=== PATIENT | male | born 1940 | race Caucasian/White ===

== ENCOUNTER 2016-05-03 06:40 | Inpatient (IN) ==
[2016-04-29 16:29] LABS: Basophils # (Auto) 0 K/mcL (0.0-0.3); Basophils % (Auto) 0.3 % (0.0-2.0); Eosinophils # (Auto) 0.2 K/mcL (0.0-0.7); Eosinophils % (Auto) 2.9 % (0.0-7.0); Granulocytes % (Auto) 70.1 % (38.0-78.0); Lymphocytes # (Auto) 1.5 K/mcL (1.5-4.8); Lymphocytes % (Auto) 18.3 % (15.5-49.0); Mean Cell Volume 90.2 fL (80.0-100.0); Mean Corpuscular HGB Conc 32.1 g/dL (31.0-36.0); Mean Corpuscular Hemoglobin 28.9 pg (26.0-34.0); Monocytes # (Auto) 0.7 K/mcL (0.1-0.9); Monocytes % (Auto) 8.4 % (1.0-9.0); Platelet Count 386 K/mcL (140-440); RBC 5.43 M/mcL (4.50-5.90); Red Cell Distribution Width 14.5 % (11.5-14.5)
[2016-04-29 16:32] LABS: Blood Urea Nitrogen 23 mg/dl (8-23)
[2016-04-29 16:33] LABS: Appearance,Urine HAZY; Bacteria,Urine FEW /hpf (0); Bilirubin,Urine NEG (NEG); Color,Urine YELLOW; Glucose,Urine (UA) NEGATIVE (NEG); Leukocyte Esterase,Urine 250 /uL (NEG); Mucus,Urine FEW /hpf (0); Nitrate,Urine POS (NEG); Protein,Urine NEG (NEG); Specific Gravity,Urine 1.019 (1.000-1.035); Urine Blood 0.03 mg/dL (<0.03); Urine RBC 2 /hpf (0-1); Urine Squamous Epithelial Cell 1 /hpf (0-4); Urine Transitional Epi Cells < 1 /hpf (0-2); Urine WBC 19 /hpf (0-4); Urobilinogen,Urine NEG (NEG)
[~2016-05-03 06:40] MED LIST: PREGABALIN 150 MG CAPSULE PO SCH; ceFAZolin 1 GM VIAL IV SCH; oxyCODONE 10 MG TAB.ER.12H PO SCH
[2016-05-03] MEDS ORDERED: TRANEXAMIC ACID 1,000 MG/10 ML VIAL IV ONE ×2 (09:30→10:39)
[2016-05-03] MEDS ORDERED: DEXAMETHASONE 10 MG/ML VIAL IV ONE (09:30)
[2016-05-03] MEDS ORDERED: PROPOFOL 200 MG/20 ML VIAL IV ONE (09:30)
[2016-05-03] MEDS ORDERED: MIDAZOLAM 5 MG/5 ML VIAL IV ONE (09:30)
[2016-05-03] MEDS ORDERED: PHENYLEPHRINE 10 MG/ML VIAL IV ONE (09:30)
[2016-05-03] MEDS ORDERED: ONDANSETRON 4 MG/2 ML VIAL IV ONE (09:30)
[2016-05-03] MEDS ORDERED: LIDOCAINE HCL/PF 100 MG/5 ML SYRINGE IV ONE (09:30)
[2016-05-03] MEDS ORDERED: SUCCINYLCHOLINE 20 MG/ML ML IV ONE (09:30)
[2016-05-03] MEDS ORDERED: ePHEDrine 50 MG/ML AMPUL IV ONE (09:30)
[2016-05-03] MEDS ORDERED: GENTAMICIN SULFATE 800 MG/20 ML VIAL IR ONE (10:32)
[2016-05-03] MEDS ORDERED: TEMAZEPAM 15 MG CAPSULE PO PRN (10:39)
[2016-05-03] MEDS ORDERED: FLEETS ADULT ENEMA PR PRN (10:39)
[2016-05-03] MEDS ORDERED: ONDANSETRON 4 MG/2 ML VIAL IV PRN ×2 (10:39→10:50)
[2016-05-03] MEDS ORDERED: ACETAMINOPHEN 325 MG TABLET PO PRN (10:39)
[2016-05-03] MEDS ORDERED: KETOROLAC 15 MG/ML VIAL IV PRN (10:39)
[2016-05-03] MEDS ORDERED: HYDROmorphone 2 MG/ML SYRINGE IV PRN (10:39)
[2016-05-03] MEDS ORDERED: BENZOCAINE/MENTHOL 1 LOZENGE PO PRN ×2 (10:39→10:50)
[2016-05-03] MEDS ORDERED: BISACODYL 10 MG SUPP.RECT PR PRN (10:39)
[2016-05-03] MEDS ORDERED: MAGNESIUM HYDROXIDE 30 ML ORAL.SUSP PO PRN (10:39)
[2016-05-03] MEDS ORDERED: POLYETHYLENE GLYCOL 3350 17 GM PACKET PO PRN (10:39)
--- NOTE | 2016-05-03 10:39 | Brief Operative Note ---
Date of procedure: 05/03/16 Pre-op diagnosis: Right hip djd Post-op diagnosis: same Procedure: Right GAIL Grafts/Implants: Yes Anesthesia: GETA Complications: none Complications Description: 05/03/16 10:38 none Surgeon: Dale Baumann Environmental Compliance Specialist: Reddy Knott Estimated blood loss (cc): 50 Specimens Removed/Pathology: none sent Condition: stable Disposition: PACU
[2016-05-03] MEDS ORDERED: LEUPROLIDE 22.5 MG IM SCH (10:45)
[2016-05-03] MEDS ORDERED: MEPERIDINE 25 MG/ML SYRINGE IV PRN (10:50)
[2016-05-03] MEDS ORDERED: IPRATROPIUM/ALBUTEROL 3 ML AMPUL.NEB NEB PRN (10:50)
[2016-05-03] MEDS ORDERED: ePHEDrine 50 MG/ML AMPUL IV PRN (10:50)
[2016-05-03] MEDS ORDERED: METOCLOPRAMIDE 10 MG/2 ML VIAL IV PRN (10:50)
[2016-05-03] MEDS ORDERED: NALOXONE HCL 0.4 MG/ML VIAL IV PRN (10:50)
[2016-05-03] MEDS ORDERED: PROMETHAZINE 25 MG/ML VIAL IV PRN (10:50)
[2016-05-03] MEDS ORDERED: diphenhydrAMINE 50 MG/ML VIAL IV PRN (10:50)
[2016-05-03] MEDS ORDERED: FLUMAZENIL 0.1 MG/ML ML IV PRN (10:50)
[2016-05-03] MEDS ORDERED: LACTATED RINGERS 250 ML IV PRN (10:50)
[2016-05-03] MEDS ORDERED: METHOCARBAMOL 1,000 MG/10 ML VIAL IV PRN (10:50)
[2016-05-03] MEDS ORDERED: LACTATED RINGERS 1,000 ML IV SCH (11:00)
--- NOTE | 2016-05-03 11:38 | Operative Note ---
DATE OF OPERATION: 05/03/2016 PREOPERATIVE DIAGNOSIS: Right hip degenerative arthritis, severe. POSTOPERATIVE DIAGNOSIS: Right hip degenerative arthritis, severe. PROCEDURE: Right total hip arthroplasty. SURGEON: Dale Baumann MD. CLINICAL VETERINARIAN: Reddy Knott PA-C. ANESTHESIA: General LMA anesthesia. COMPLICATIONS: None. IMPLANTS: A size 4 femoral noncemented stem with a size 54 cup with a dual mobility liner, neutral neck length and head ceramic. ESTIMATED BLOOD LOSS: Minimal. DESCRIPTION OF PROCEDURE: The patient was brought to the operating room and put to sleep with general LMA anesthesia. Once asleep, the patient had the right hip sterilely prepped and draped in the usual sterile fashion and placed on the operating table in the left lateral position. Ioban was placed over the skin, and we confirmed the operative site. Tranexamic acid and preop antibiotics had been given. Once this was confirmed, we then made the incision superior posteriorly, dissected down through the muscle layer, identified the posterior capsule and released the posterior capsule superior posteriorly. Once this was done, we tagged both the capsule and the piriformis which was retracted and we then dislocated the hip. We cut the neck length at 32 mm from the center of hip rotation. Once complete, we then removed the ball and reamed the acetabulum up to the size of a 53 cup. With good bleeding bone we then curetted any cyst and then placed a noncemented [place] cup which was put into place at 40 degrees of inclination and 20 degrees of anteversion. Once put into place, we placed a dual mobility liner. Once this was done, we then removed any osteophytes around the hip itself. We irrigated thoroughly. We then had the hip broached up for the size 4 stem. We trialed the size 4 stem with a neutral neck length. This seemed to be very stable, leg length about 1/4-inch longer as measured on the table. We irrigated posteriorly and implanted a size 4 stem, neutral ceramic neck and a dual mobility ball. This was reduced. Hip was stable up to 90 degrees of internal rotation. There was no complication. The patient tolerated this well. Sterile bandage was applied. We repaired the posterior capsule with #2 Ethibond, repaired the fascial layer with #1 Vicryl, and closed the skin with 2-0 Vicryl and mati superficially. The patient tolerated this well. RBMirta:amalia Garcia: 05/03/2016 10:46:38 Job ID: [id number] Doc ID: [id number] Dale Baumann MD
--- NOTE | 2016-05-03 11:49 | XRay Report ---
HISTORY: Reason for Exam:Post-op Total Hip FINDINGS: There is a well-positioned right total hip prosthesis. There is no fracture. There is sclerosis throughout most of the the right iliac bone as well as the right pubic bone. This is due to biopsy-proven metastatic prostate cancer. No pathologic fracture Is present. The right hemipelvis has become more sclerotic since the prior x-ray done on 02/09/16. There is severe osteoarthritis in the left hip. There are contour deformities in the weightbearing portion of the femoral head and acetabulum. This is unchanged. IMPRESSION: Well-positioned right hip prosthesis Interpreted and Authenticated by: London Benitez 05/03/16
[2016-05-03] MEDS: 0.9 % SODIUM CHLORIDE 10 ML SYRINGE IV SCH ×2 (12:15→22:05)
[2016-05-03] MEDS: LACTATED RINGERS 1,000 ML IV SCH ×2 (12:20→22:05)
[2016-05-03] MEDS: HYDROcodone/APAP 10/325MG TABLET PO PRN (15:04)
[2016-05-03] MEDS: WARFARIN 5 MG TABLET PO SCH (16:16)
[2016-05-03] MEDS: ceFAZolin 1 GM VIAL IV SCH (17:22)
[2016-05-03] MEDS ORDERED: SENNOSIDES 1 TABLET PO SCH (21:00)
[2016-05-03] MEDS ORDERED: ASPIRIN 325 MG ENTERIC COATED TABLET PO SCH (21:00)
[2016-05-03] MEDS: DOCUSATE SODIUM 100 MG CAPSULE PO SCH (21:07)
[2016-05-04] MEDS: ceFAZolin 1 GM VIAL IV SCH (00:16)
[2016-05-04] MEDS: HYDROcodone/APAP 10/325MG TABLET PO PRN (05:34)
[2016-05-04] MEDS: 0.9 % SODIUM CHLORIDE 10 ML SYRINGE IV SCH ×2 (05:35→13:59)
[2016-05-04] MEDS: LACTATED RINGERS 1,000 ML IV SCH (06:46)
--- NOTE | 2016-05-04 07:42 | Orthopedic Progress Note ---
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 Chief Complaint: [Pt is stable this morning on post operative day 1 without any significant concerns or complaints. Patients vital signs have remained stable. Patients dressing is dry and exhibits a grossly intact neurovascular and neuromotor exam. Patients 10 point ROS is otherwise negative. ] Objective Vital signs: Vital Signs Temp Pulse Resp BP BP Pulse Ox 05/04/16 06:52 78 18 96 05/04/16 03:29 98.2 F 78 20 122/69 96 05/04/16 00:00 97.6 F 75 20 112/66 96 05/03/16 20:00 93 05/03/16 19:22 97.9 F 72 20 124/70 94 05/03/16 18:00 71 95 05/03/16 16:36 97.7 F 71 16 133/79 133/79 95 05/03/16 16:00 95 05/03/16 14:27 69 123/77 91 05/03/16 14:12 66 131/76 94 05/03/16 14:00 96 05/03/16 13:57 66 119/73 95 05/03/16 13:42 60 119/74 95 05/03/16 13:27 64 121/74 91 05/03/16 13:12 70 119/75 93 05/03/16 12:59 69 116/67 95 05/03/16 12:44 66 112/69 94 05/03/16 12:39 95 05/03/16 12:27 64 122/71 93 05/03/16 12:12 66 124/77 97 05/03/16 12:00 96.7 F L 16 117/73 95 05/03/16 11:51 98.0 F 68 18 103/62 98 05/03/16 11:41 69 15 108/65 91 05/03/16 11:30 69 17 106/61 98 05/03/16 11:15 69 17 101/58 97 05/03/16 11:01 98.3 F 71 12 103/60 99 05/03/16 10:39 68 05/03/16 07:50 97.7 F 83 16 159/84 97 Intake and Output 05/03/16 05/04/16 05/04/16 21:59 05:59 13:59 Intake Total 650 / 650 500 / 500 1000 / 1000 Output Total 950 / 950 Balance 650 / 650 -450 / -450 1000 / 1000 Intake: IV 1000 / 1000 Lactated Ringers 1,000 ml 1000 / 1000 @ 100 mls/hr IV .Q10H BLAYNE Rx#:[id number] Oral 650 / 650 500 / 500 Output: Urine Catheter Amount 950 / 950 Other: Meal Lunch Percent of Meal Consumed 100% Weight 182 lb 8 oz Intake & Output: Intake & Output 05/03/16 05/04/16 05/04/16 21:59 05:59 13:59 Intake Total 650 / 650 500 / 500 1000 / 1000 Output Total 950 / 950 Balance 650 / 650 -450 / -450 1000 / 1000 Weight 182 lb 8 oz Intake: IV 1000 / 1000 Lactated Ringers 1,000 ml 1000 / 1000 @ 100 mls/hr IV .Q10H BLAYNE Rx#:[id number] Oral 650 / 650 500 / 500 Output: Urine Catheter Amount 950 / 950 Other: Meal Lunch Percent of Meal Consumed 100% Incision: Yes healing Dressing: Yes clean, Yes dry Weight bearing status: full Neurological exam IM: Yes motor sensory intact, Yes neurovascular intact Extremities exam IM: Yes Foot pink and warm, Yes neurovascular intact - Labs CBC & BMP: 05/04/16 05:00 04/29/16 13:46 Labs: Orthopedic Labs 05/04/16 04/29/16 05:00 13:46 PT 14.5 13.2 INR 1.1 1.0 APTT 34 05/04/16 04/29/16 05:00 13:46 Hgb 15.7 Hct 36.9 L 49.0 Assessment and Plan (1) Hx of total hip arthroplasty Patient has been educated regarding wound care and dressings, follow up recommendations, and medication use. We will f/u with the patient within 2-3 weeks for wound check. Status: Acute
--- NOTE | 2016-05-04 07:45 | Discharge Summary ---
Ortho Discharge - GAIL - Patient Instructions Diet: Regular Diet Activity: activity as tolerated, weight bearing as tolerated Total Hip Protocol: Follow activity instructions as provided by Physical Therapy. Dressing Care: May shower in 2 days - Problem Maintenance (1) Hx of total hip arthroplasty Status: Acute - Follow Up Plan Disposition: Home, Self-Care Prognosis: Good Rehab Potential: Good I certify that the patient requires SNF services: No Overall status at discharge: patient is progressing back to baseline - Orders For Discharge Prescriptions: Docusate Sodium [Colace] 100 mg PO BID #60 capsule HYDROcodone/APAP 10/325MG [[place] 10/325Mg] 1 - 2 tab PO Q4HP PRN #75 tablet PRN Reason: Pain
[2016-05-04] MEDS ORDERED: FERROUS SULFATE 325 MG TABLET PO SCH (08:00)
[2016-05-04] MEDS: DOCUSATE SODIUM 100 MG CAPSULE PO SCH (08:02)
[2016-05-04] MEDS: WARFARIN 5 MG TABLET PO SCH (13:59)
== END 2016-05-04 14:35 | disposition home or self-care (01) | DRG 470 ==
LOC: MEDSUR 06:40
PROVIDERS: ADMIT Orthopaedic Surgery; ATTEND Orthopaedic Surgery

== ENCOUNTER 2018-01-23 09:33 | Inpatient (IN) ==
--- NOTE | 2018-01-23 10:00 | Emergency Department Note ---
Weakness HPI - General Chief complaint: Weakness Stated complaint: Weakness x2 days Time Seen by Provider: 01/23/18 09:58 Source: patient Mode of arrival: ambulatory Limitations: no limitations - History of Present Illness HPI Narrative: This pleasant 77-year-old male lives in his own home alone and neighbors checking on him regularly today finding him even worse weeks and he has been and called an ambulance to transport him here to the emergency room. He is on a fairly harsh chemo regimen for metastatic prostate cancer and had received his last treatment last week. He has had similar weakness after chemo but this 1 is worse. He is generally not felt well the last couple of weeks and is felt more lightheaded. He has had poor appetite with nausea and vomiting and abdominal pain but this is per family and neighbor history. Patient actually denies these. No diarrhea has been noted bees not been eating. Family reports that 8 days ago he drank water from [place] in the family. This well has notoriously been contaminated with the findings of rats, etc. He became somewhat ill that evening and the next day became ill and is not felt well also these last 6 days. In route here via EMS he had even low temperature. He was placed on some oxygen. Family and neighbors have noted that he has had some change in his speech where it seems to be slower and his voice weaker as if he had full teeth. This was worse 3 days ago but was some better yesterday. He normally is very active and upbeat and able to interact appropriately and well. He has had a recent worsening of depression type of symptoms related to a girlfriend that moved out and someone else. Family reports that he has had some constant urinary urgency and incontinence which is new. There is a question about his medication compliance as well. REVIEW OF SYSTEMS: No fevers. Some chills 4 days ago. No sweats. Denies chest pain and palpitations. Family knows of no history of atrial fibrillation or neighbors but it is in his chart. Denies shortness of breath. Denies abdominal pain, nausea, vomiting, diarrhea but see above in HPI that family corrects this. Some constant urinary type of symptoms with the sense of urgency but incontinent which is new. He has a history of self-catheterization for years. He has a history of a blockage including with a nephrostomy tube due to his cancer. His cancer in the prostate was metastatic to bladder and kidney as well as musculoskeletal areas. No anxiety but the depression is mentioned as above. - Related Data Home Medications Medication Instructions Recorded Confirmed aspirin 81 mg chewable tablet 81 mg PO QDAY 09/28/16 01/17/18 leuprolide 22.5 mg (3 month) 22.5 mg SUB-Q ONCE 01/12/17 01/17/18 subcutaneous syringe calcium carbonate 600 mg calcium 600 mg PO QDAY tab 07/13/17 01/17/18 (1,500 mg) tablet Previous Rx's Medication Instructions Recorded amlodipine 5 mg tablet 5 mg PO QDAY #30 tab 10/06/17 blood pressure monitor kit See Dose Instructions .ROUTE 10/06/17 .MEDSUPPLY #1 each ciprofloxacin 500 mg tablet 500 mg PO BID #14 tab 12/08/17 clopidogrel 75 mg tablet 75 mg PO QDAY #90 tab 12/27/17 ezetimibe 10 mg tablet 10 mg PO QDAY #90 tab 12/30/17 oxybutynin chloride ER 10 mg 10 mg PO QDAY #30 tab 01/17/18 tablet,extended release 24 hr Allergies Allergy/AdvReac Type Severity Reaction Status Date / Time GWENDOLYN Inhibitors Allergy Severe Other Verified 01/17/18 10:56 Beta-Blockers Allergy Severe Other Verified 01/17/18 10:56 (Beta-Adrenergic Bloc Tetracyclines AdvReac Mild Photosensit Verified 01/17/18 10:56 ivity Past Medical History - Past Medical History [facility] Narrative: All Active Problems (Last Reviewed 01/17/18 @ 10:57 by Ernestine Gusman RN) Stroke (Chronic) Premature atrial complex (Acute) Adverse drug reaction (Acute) Palpitations (Acute) Palpitations (Acute) Hx of total hip arthroplasty (Acute) Chest pain (Acute) Palpitations (Acute) Atrial fibrillation (Acute) Costalchondritis (Acute) Non-cardiac chest pain (Acute) CAD (coronary artery disease) (Chronic) Vertebral compression fracture (Chronic) Osteoporosis (Chronic) Avascular necrosis of bone of right hip (Chronic) Osteoarthritis of left hip (Chronic) Status post right hip replacement (Acute) Fracture of ankle, closed (Acute) History of appendectomy (Acute) BPH with obstruction/lower urinary tract symptoms (Acute) Hypertension, essential (Acute) Incomplete bladder emptying (Acute) Nausea (Acute) Urinary hesitancy (Acute) Urinary obstruction (Acute) Prostate cancer metastatic to intraabdominal lymph node (Acute) Acute UTI (Acute) Nephrostomy status (Acute) Nephrostomy tube was 4 years ago and no longer has this. Right hand chronic tremor. Statin intolerance. Chronic anticoagulation on clopidogrel. Past Surgical History (Last Reviewed 01/17/18 @ 10:57 by Ernestine Gusman RN) Hx of total hip arthroplasty (Acute) History of appendectomy (Acute) Nephrostomy status (Acute) Family History (Last Reviewed 01/17/18 @ 10:57 by Ernestine Gusman RN) Mother Rheumatoid arthritis Father Heart attack Prostate cancer Brother Stroke Medical history: Reports: atrial fibrillation, hypertension, myocardial infarction, other (prostate cancer. 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 Right hand chronic tremor. Chronic anticoagulation ( clopidogrel).) Surgical history ED: Reports: appendectomy, hip replacement, other (Nephrostomy) - Social History smoking status: Never smoker Alcohol use: Reports: Occasionally Drug use: Reports: none Physical Exam Limitations: no limitations General appearance: alert, lethargic (Mild), malaise (Moderate) Head: atraumatic, normocephalic Eye: Present: EOMI Neck: Present: trachea midline. Absent: lymphadenopathy, thyromegaly Chest: Present: symmetric chest wall rise Cardiovascular: Present: irregular rhythm. Absent: bradycardia, tachycardia, systolic murmur, diastolic murmur Abdominal: Present: tenderness (Mild and subjective in the lower abdomen.). Absent: distention, guarding, rebound, rigidity (But mildly firm to palpation), organomegaly, mass Extremities: Absent: pedal edema, pretibial edema, calf tenderness Neurological: Present: alert, CN II-XII intact Psychiatric: Present: depressed (Mildly), flat affect. Absent: agitated, anxious Skin: Present: warm, dry Course Course Narrative: 9:58 AM Concern regarding possible Sirs/sepsis with weakness and recent chemo with hypothermia some hypoxia and mild Tachypnea, with recent chemo and a decline. Multiple labs and test. Exposure to probably contaminated well water. Stool testing if he is able but he has not eaten well so this may be difficult. With some mental status changes as well, will do CT scan of the head. History of prostate cancer with metastases. No new interventions at this point in time. He does have urinary symptoms which have led to poor control and incontinence which is some new. Will order urine culture. Vital Signs Temperature 97.7 F 01/23/18 09:35 Pulse Rate 98 H 01/23/18 09:35 Respiratory Rate 24 H 01/23/18 09:35 Blood Pressure 130/107 01/23/18 09:35 Pulse Oximetry (%) 92 01/23/18 09:35 Temperature 97.2 F 01/23/18 12:49 Pulse Rate 80 01/23/18 12:49 Respiratory Rate 14 01/23/18 12:49 Blood Pressure 127/73 01/23/18 12:46 Pulse Oximetry (%) 98 01/23/18 12:49 Weakness - Lab Data Lab results reviewed: Yes I reviewed the patient's lab results. Result diagrams: 01/23/18 09:56 01/23/18 09:56 Lab Results 01/23/18 01/23/18 01/23/18 Range/Units 09:56 09:56 09:56 WBC 11.1 H (4.5-11.0) K/mcL RBC 5.81 (4.50-5.90) M/mcL Hgb 17.0 H (13.5-16.5) g/dL Hct 52.6 (41.0-55.0) % POC Hct (41.0-55.0) % MCV 90.6 (80.0-100.0) fL MCH 29.4 (26.0-34.0) pg MCHC 32.4 (31.0-36.0) g/dL RDW 14.3 (11.5-14.5) % Plt Count 466 H (140-440) K/mcL MPV 9.3 (7.4-10.4) fL Total Counted 100 Seg Neutrophils % 77 (38-78) % Band Neutrophils % 6 (0-10) % Lymphocytes % 9 L (15-49) % Monocytes % (Manual) 8 (1-12) % Platelet Estimate Increased A (NORMAL) RBC Morphology Normal (NORMAL) VBG Lactic Acid 4.0 H* (0.5-2.2) mmol/L POC Sodium (133-145) mmol/L Sodium 136 (133-145) mmol/L POC Potassium (3.3-5.1) mmol/L Potassium 4.6 (3.3-5.1) mmol/L POC Chloride (96-108) mmol/L Chloride 92 L (96-108) mmol/L Carbon Dioxide 11 L (22-30) mmol/L POC Total CO2 (22-30) mmol/L Anion Gap 33.0 H (8-16) POC BUN (8-23) mg/dl BUN 38 H (8-23) mg/dl Creatinine 2.1 H (0.7-1.2) mg/dl POC Creatinine (0.7-1.2) mg/dl GFR Calculation 29 Glucose 770 H* (70-105) mg/dL POC Glucose (70-105) mg/dL Calcium 11.8 H (8.6-10.4) mg/dl POC WB Ioniz Calcium (1.16-1.32) mmol/L Total Bilirubin 0.4 (0.0-1.0) mg/dL AST 13 (0-37) U/l ALT 28 (0-40) U/l Alkaline Phosphatase 112 (39-117) U/L Total Protein 8.4 (5.9-8.4) gm/dL Albumin 4.0 (3.2-5.2) gm/dL Globulin 4.4 H (2.2-3.7) gm/dL Albumin/Globulin Ratio 0.9 L (1.0-2.3) Procalcitonin (<0.10) ng/mL Urine Color Urine Appearance Urine pH (5.0-9.0) Ur Specific [place] (1.000-1.035) Urine Protein (NEG) mg/dL Urine Glucose (UA) (NEG) mg/dL Urine Ketones (NEG) mg/dL Urine Occult Blood (<0.03) mg/dL Urine Nitrate (NEG) Urine Bilirubin (NEG) mg/dL Urine Urobilinogen (NEG) mg/dL Ur Leukocyte Esterase (NEG) /uL Urine RBC (0-1) /hpf Urine WBC (0-4) /hpf Ur Squamous Epith Cells (0-4) /hpf Ur Transition Epith Cell (0-2) /hpf Urine Bacteria (0) /hpf Urine Mucus (0) /hpf Urine Yeast (Budding) (0) /hpf Ur Culture Indicated? 01/23/18 01/23/18 01/23/18 Range/Units 09:58 10:44 11:10 WBC (4.5-11.0) K/mcL RBC (4.50-5.90) M/mcL Hgb (13.5-16.5) g/dL Hct (41.0-55.0) % POC Hct 47.0 (41.0-55.0) % MCV (80.0-100.0) fL MCH (26.0-34.0) pg MCHC (31.0-36.0) g/dL RDW (11.5-14.5) % Plt Count (140-440) K/mcL MPV (7.4-10.4) fL Total Counted Seg Neutrophils % (38-78) % Band Neutrophils % (0-10) % Lymphocytes % (15-49) % Monocytes % (Manual) (1-12) % Platelet Estimate (NORMAL) RBC Morphology (NORMAL) VBG Lactic Acid (0.5-2.2) mmol/L POC Sodium 137 (133-145) mmol/L Sodium (133-145) mmol/L POC Potassium 4.6 (3.3-5.1) mmol/L Potassium (3.3-5.1) mmol/L POC Chloride 108 (96-108) mmol/L Chloride (96-108) mmol/L Carbon Dioxide (22-30) mmol/L POC Total CO2 13 L (22-30) mmol/L Anion Gap (8-16) POC BUN 36 H (8-23) mg/dl BUN (8-23) mg/dl Creatinine (0.7-1.2) mg/dl POC Creatinine 1.4 H (0.7-1.2) mg/dl GFR Calculation Glucose (70-105) mg/dL POC Glucose 624 H* (70-105) mg/dL Calcium (8.6-10.4) mg/dl POC WB Ioniz Calcium 1.45 H (1.16-1.32) mmol/L Total Bilirubin (0.0-1.0) mg/dL AST (0-37) U/l ALT (0-40) U/l Alkaline Phosphatase (39-117) U/L Total Protein (5.9-8.4) gm/dL Albumin (3.2-5.2) gm/dL Globulin (2.2-3.7) gm/dL Albumin/Globulin Ratio (1.0-2.3) Procalcitonin 0.11 (<0.10) ng/mL Urine Color Yellow Urine Appearance Hazy Urine pH 5.0 (5.0-9.0) Ur Specific [place] 1.022 (1.000-1.035) Urine Protein 30 A (NEG) mg/dL Urine Glucose (UA) >=500 A (NEG) mg/dL Urine Ketones 20 A (NEG) mg/dL Urine Occult Blood 0.2 A (<0.03) mg/dL Urine Nitrate Neg (NEG) Urine Bilirubin Neg (NEG) mg/dL Urine Urobilinogen Neg (NEG) mg/dL Ur Leukocyte Esterase 500 A (NEG) /uL Urine RBC 1 (0-1) /hpf Urine WBC 63 H (0-4) /hpf Ur Squamous Epith Cells 1 (0-4) /hpf Ur Transition Epith Cell < 1 (0-2) /hpf Urine Bacteria Few A (0) /hpf Urine Mucus Few (0) /hpf Urine Yeast (Budding) Few A (0) /hpf Ur Culture Indicated? Yes - Radiology Data Radiology results reviewed: Yes I reviewed the patient's radiology results. - EKG Data EKG results narrative: No acute ACS. A-fib vs. frequent supravent premature beats? This EKG will be read by a speech language specialist. Disposition Pt seen by STORAGE RECEIPT POSTER/PA only: No Clinical Impression: SIRS (systemic inflammatory response syndrome), Depression, major, single episode, moderate, Gastroenteritis UTI (urinary tract infection) Qualifiers: Urinary tract infection type: site unspecified Hematuria presence: without hematuria Qualified Code(s): N39.0 - Urinary tract infection, site not specified Acute on chronic renal failure Qualifiers: Acute renal failure type: unspecified Chronic kidney disease stage: unspecified stage Qualified Code(s): N17.9 - Acute kidney failure, unspecified; N18.9 - Chronic kidney disease, unspecified Summary: Patient's labs came back with an elevated lactic acid, platelet count 466 creatinine 2.1 with a normal baseline of 1.3, 1.4. His urine was high with leukocyte esterase of 500, and 63 WBCs and seem to be fairly clean. Additional family history included that he has had significant diarrhea, multiple times this past number of days or week. [place] is that patient has either a urinary tract infection causing urosepsis, gastroenteritis from an open well (contaminated), or other and that this has contributed to his multiple laboratory abnormalities and general sense of decline, weakness, change in speech and slowed responses. CT scan of the head (without contrast) was negative for any new or acute findings but with an old infarct. EKG was difficult to read with probable sinus rhythm and frequent supraventricular premature contractions. Family also expressed concern regarding patient experiencing significant depression due to life circumstance change with girlfriend moving out marrying another person. With these findings patient is to be observed and additionally treated. He was given ceftriaxone 1 g in the emergency room. I spoke with Dr. Bermudez, hospitalist , who kindly accepted his care. (12:58 PM) Disposition: Xfer As Inpt ([facility]) Condition: Serious Referrals: Tray Villavicencio DO [Primary Care Provider] -
[2018-01-23] MEDS ORDERED: ONDANSETRON 4 MG/2 ML VIAL IV ONE (10:11)
[2018-01-23 10:43] LABS: Mean Cell Volume 90.6 fL (80.0-100.0); Mean Corpuscular HGB Conc 32.4 g/dL (31.0-36.0); Mean Corpuscular Hemoglobin 29.4 pg (26.0-34.0); Platelet Count 466 K/mcL (140-440); RBC 5.81 M/mcL (4.50-5.90); Red Cell Distribution Width 14.3 % (11.5-14.5)
--- NOTE | 2018-01-23 10:45 | XRay Report ---
CLINICAL INFORMATION: Cough COMPARISON: 06/19/2017 FINDINGS: The heart size, mediastinum and pulmonary vessels are unremarkable. The lungs are clear. There are no effusions. Marked subluxation right humeral head impinges the inferior acromion noted and compatible chronic rotator cuff tear/impingement. Moderate bilateral glenohumeral degenerative changes noted. IMPRESSION: No acute cardiopulmonary disease.. Interpreted and Authenticated by: Tray Prieto 01/23/18
[2018-01-23 11:09] LABS: Band Neutrophils % 6 % (0-10); Lymphocytes % 9 % (15-49); Monocytes % (Manual) 8 % (1-12); Platelet Estimate INCREASED (NORMAL); RBC Morphology NORMAL (NORMAL); Segmented Neutrophils % 77 % (38-78)
[2018-01-23 11:18] LABS: ALT/SGPT 28 U/l (0-40); Albumin/Globulin Ratio 0.9 (1.0-2.3); Alkaline Phosphatase 112 U/L (39-117); Blood Urea Nitrogen 38 mg/dl (8-23)
--- NOTE | 2018-01-23 11:18 | Cat Scan Report ---
CLINICAL INFORMATION: Slurred speech and weakness history of prostate cancer COMPARISON: None. TECHNIQUE: 2.5 mm helical slices were obtained in the skull base to vertex. Following reconstruction, axial reformatted images were reviewed at bone and parenchymal windows. The exam was performed using radiation dose optimization techniques including, but not limited to, automated exposure control, adjustment of the mA and/or kV according to patient size and use of iterative reconstruction technique. FINDINGS: The ventricles, sulci, fissures, and cisterns are symmetrically enlarged compatible with moderate age-related atrophy. No subdural hemorrhage or extra-axial fluid collection or mass appreciated. Moderate region of cortical-based encephalomalacia is present in the posterior right frontal lobe - likely an old infarct. Patchy chronic ischemic changes in deep cerebral white matter and remote lacunar infarct in the right thalamus are appreciated. There is no intracerebral hemorrhage, mass effect or edema. Bone windows show no evidence of prostate carcinoma metastases or other osseous abnormality IMPRESSION: Moderate region of cortical-based encephalomalacia in the posterior right frontal lobe both compatible with old infarct. Mild atrophy and chronic ischemic changes typical for age. No acute finding Interpreted and Authenticated by: Tray Prieto 01/23/18
[2018-01-23] MEDS ORDERED: INSULIN REGULAR, HUMAN 1 UNIT/0.01 ML UNIT IV ONE (11:22)
[2018-01-23] MEDS ORDERED: 0.9 % SODIUM CHLORIDE 1,000 ML IV ONE ×4 (11:37→14:37)
[2018-01-23 11:50] LABS: Appearance,Urine HAZY; Bacteria,Urine FEW /hpf (0); Bilirubin,Urine NEG (NEG); Color,Urine YELLOW; Glucose,Urine (UA) >=500 mg/dL (NEG); Leukocyte Esterase,Urine 500 /uL (NEG); Mucus,Urine FEW /hpf (0); Protein,Urine 30 mg/dL (NEG); Specific Gravity,Urine 1.022 (1.000-1.035); Urine Blood 0.2 mg/dL (<0.03); Urine Budding Yeast FEW /hpf (0); Urine RBC 1 /hpf (0-1); Urine Squamous Epithelial Cell 1 /hpf (0-4); Urine Transitional Epi Cells < 1 /hpf (0-2); Urine WBC 63 /hpf (0-4); Urobilinogen,Urine NEG (NEG)
[2018-01-23] MEDS ORDERED: cefTRIAXone 1 GM VIAL IV ONE (12:26)
--- NOTE | 2018-01-23 14:32 | Internal Med History&Physical ---
Medical - H&P: HPI Patient information: Note initiated : 01/23/18 at 2:29 pm Service Date, if different from initiated Date: [] Patient: Jaiden Chavarria a 77 y/o M admitted on for Weakness x2 days. Chief Complaint: [polyuria and polydipsia Chief complaint: weakness History of present illness: Mr. Chavarria is a 77 year old M with borderline diabetes in the past has had polyuria and polydipsia for 3 weeks. Got to where he is [place] all the time and drinking fluids constantly. got weaker and weaker an came to hospital. has hx of stage 3 met prostate cancer with PSA over 700. now down to 0.78 after Eligard (leuprolide) injection. States bone pain markedly diminished. Had cancer in hip and kidney and bladder. not good cancer historian but states was 4 years ordeal so far. has had one episode drinking well water a few weeks ago but denies diarrhea. last bm formed yest morning. - Constitutional Constitutional: Present: lethargy, malaise, weakness. Absent: anorexia, chills , night sweats - EENT Ears: Present: as per HPI - Cardiovascular Cardiovascular: Absent: chest pain, diaphoresis, dyspnea on exertion, irregular heart rhythm - Respiratory Respiratory: Present: dyspnea on exertion. Absent: hemoptysis, pain on inspirtation, excessive phlegm production - Gastrointestinal Gastrointestinal: Absent: abdominal pain, hematemesis, loose stools, nausea, vomiting - Genitourinary Genitourinary: Present: urinary frequency, urinary urgency. Absent: hematuria - Musculoskeletal Musculoskeletal: Present: muscle weakness - Integumentary Integumentary: Present: as per HPI - Psychiatric Psychiatric: Present: difficulty concentrating - Endocrine Endocrine: Present: polydipsia, polyuria - Hematologic/Lymphatic Hematologic/Lymphatic: Present: as per HPI Medical - H&P: PMH Medical history: prostate cancer hypertension borderline diabetes CAD Surgical history: CABG 3 vessel 1 year ago at [facility] in [place] Social history: wants full code lives alone retired occasional alcohol no illicits Smoking status: Former smoker Have you smoked in the last 12 months: No Drug use: none Alcohol use: occasionally Medical - H&P: Meds Home Medications Medication Instructions Recorded Confirmed Type calcium carbonate 600 mg calcium 600 mg PO QDAY tab 07/13/17 01/17/18 History (1,500 mg) tablet amlodipine 5 mg tablet 5 mg PO QDAY #30 tab 10/06/17 01/17/18 Rx blood pressure monitor kit See Dose Instructions .ROUTE 10/06/17 01/17/18 Rx .MEDSUPPLY #1 each clopidogrel 75 mg tablet 75 mg PO QDAY #90 tab 12/27/17 01/23/18 Rx Allergies Allergy/AdvReac Type Severity Reaction Status Date / Time GWENDOLYN Inhibitors Allergy Severe Other Verified 01/17/18 10:56 Beta-Blockers Allergy Severe Other Verified 01/17/18 10:56 (Beta-Adrenergic Bloc Tetracyclines AdvReac Mild Photosensit Verified 01/17/18 10:56 ivity Medical - H&P: Exam - Constitutional Vitals: Temp Pulse Resp BP Pulse Ox 97.2 F 70 19 139/82 100 01/23/18 13:42 01/23/18 13:16 01/23/18 13:42 01/23/18 13:33 01/23/18 13:16 General appearance: average body habitus, cooperative - Head Head exam: Present: atraumatic, normal inspection - Eye Eye exam: Absent: conjunctival injection, scleral icterus - Expanded ENT Exam Mouth exam: Present: moist - Neck Neck exam: Present: full ROM. Absent: lymphadenopathy, tenderness - Respiratory Respiratory exam: Present: normal respiratory exam, CTAB - Cardiovascular Cardiovascular exam: Present: normal rate and rhythm - GI/Abdominal GI/Abdominal exam: Present: normal bowel sounds, soft. Absent: rebound, tenderness - Extremities Exam Extremities exam: Absent: calf tenderness, pedal edema - Neurological Exam Neurological exam: Present: alert, oriented X3 - Expanded Neurological Exam Speech: Present: fluid speech - Psychiatric Psychiatric exam: Present: normal affect, normal mood Medical - H&P: Reslt - Labs CBC & Chem 7: 01/23/18 09:56 01/23/18 09:56 Labs: Short CBC 01/23/18 Range/Units 09:56 WBC 11.1 H (4.5-11.0) K/mcL Hgb 17.0 H (13.5-16.5) g/dL Hct 52.6 (41.0-55.0) % Plt Count 466 H (140-440) K/mcL BMP 01/23/18 09:56 Sodium 136 Potassium 4.6 Chloride 92 L Carbon Dioxide 11 L BUN 38 H Creatinine 2.1 H Glucose 770 H* Calcium 11.8 H Liver Function 01/23/18 Range/Units 09:56 Total Bilirubin 0.4 (0.0-1.0) mg/dL AST 13 (0-37) U/l ALT 28 (0-40) U/l Alkaline Phosphatase 112 (39-117) U/L Albumin 4.0 (3.2-5.2) gm/dL Urine 01/23/18 Range/Units 10:44 Urine Color Yellow Urine Appearance Hazy Urine pH 5.0 (5.0-9.0) Ur Specific [place] 1.022 (1.000-1.035) Urine Protein 30 A (NEG) mg/dL Urine Glucose (UA) >=500 A (NEG) mg/dL - ABG Interpretation Additional comments: ordered - Imaging and Cardiology Chest x-ray Status: image reviewed by me Additional comments: cardiac silhouette borderline large but no pulmonary edema or effusion Medical - H&P: A/P (1) DKA (diabetic ketoacidoses) Current visit: Yes Status: Acute uncontrolled diabetes type 2 suspected. Cant exclude late age pancreatic islet cell failure. Will follow response to insulin and possible oral meds. Test A1C and lipid profile. (2) Acute on chronic renal failure Current visit: Yes Status: Acute hydrate. Avoid Metformin (3) Acute UTI Problem details: right ankle surgery Current visit: No Status: Acute rocephin treatment for 7 day antibiotic course switching to oral prior to discharge. (4) SIRS (systemic inflammatory response syndrome) Current visit: Yes Status: Acute fluid boluses given. VS stable skin warm and dry and well perfused (5) CAD (coronary artery disease) Current visit: No Status: Chronic asymptomatic and stable cont plavix - Narrative A/P Narrative: 70 mins critical care time
[2018-01-23] MEDS ORDERED: INSULIN REGULAR, HUMAN 50 UNIT in 0.9 % SODIUM CHLORIDE 100 ML IV SCH (16:20)
[2018-01-23] MEDS ORDERED: ONDANSETRON 4 MG/2 ML VIAL IV PRN (16:20)
[2018-01-23 18:02] LABS: Estimated Average Glucose(eAG) 344 mg/dL; Hemoglobin A1C 13.6 % HGB (4.0-6.0)
[2018-01-23 18:52] LABS: Blood Urea Nitrogen 31 mg/dl (8-23)
[2018-01-23] MEDS: 0.9 % SODIUM CHLORIDE 10 ML SYRINGE IV SCH (22:40)
[2018-01-23 23:10] LABS: Blood Urea Nitrogen 31 mg/dl (8-23)
[2018-01-24] MEDS: QUEtiapine 25 MG TABLET PO SCH ×2 (01:01→21:49)
[2018-01-24] MEDS: DEXTROSE 5%-NS 1,000 ML IV SCH ×2 (01:01→06:49)
[2018-01-24] MEDS ORDERED: HALOPERIDOL LACTATE 5 MG/ML VIAL ONE (01:24)
[2018-01-24] MEDS ORDERED: DILTIAZEM 25 MG/5 ML VIAL IV ONE ×2 (01:46→01:55)
[2018-01-24] MEDS ORDERED: DILTIAZEM 125 MG/25 ML VIAL IV ONE (01:56)
[2018-01-24] MEDS ORDERED: DILTIAZEM 125 MG in DEXTROSE 5% IN WATER 100 ML IV SCH (02:00)
[2018-01-24] MEDS: DILTIAZEM 125 MG in DEXTROSE 5% IN WATER 100 ML IV SCH ×2 (02:03→04:03)
[2018-01-24 02:58] LABS: ALT/SGPT 17 U/l (0-40); Albumin 2.9 gm/dL (3.2-5.2); Alkaline Phosphatase 73 U/L (39-117); Blood Urea Nitrogen 29 mg/dl (8-23)
[2018-01-24 05:30] LABS: Basophils # (Auto) 0 K/mcL (0.0-0.3); Basophils % (Auto) 0.2 % (0.0-2.0); Eosinophils # (Auto) 0.1 K/mcL (0.0-0.7); Granulocytes % (Auto) 76.4 % (38.0-78.0); Lymphocytes % (Auto) 12.6 % (15.5-49.0); Mean Cell Volume 89.2 fL (80.0-100.0); Mean Corpuscular HGB Conc 33.4 g/dL (31.0-36.0); Mean Corpuscular Hemoglobin 29.8 pg (26.0-34.0); Monocytes # (Auto) 0.8 K/mcL (0.1-0.9); Monocytes % (Auto) 9.8 % (1.0-12.0); Platelet Count 291 K/mcL (140-440); RBC 4.18 M/mcL (4.50-5.90); Red Cell Distribution Width 14.3 % (11.5-14.5)
[2018-01-24 05:37] LABS: ALT/SGPT 17 U/l (0-40); Albumin 2.6 gm/dL (3.2-5.2); Albumin/Globulin Ratio 0.9 (1.0-2.3); Alkaline Phosphatase 67 U/L (39-117); Bilirubin,Direct < 0.2 mg/dL (0.0-0.3); Blood Urea Nitrogen 27 mg/dl (8-23); Gamma Glutamyl Transpeptidase 14 U/L (8-61); HDL Cholesterol 34 mg/dl (>40); LDL Cholesterol,Calculated 83 mg/dl (SEE CHART); Uric Acid 8.4 mg/dL (2.5-8.0)
[2018-01-24] MEDS: 0.9 % SODIUM CHLORIDE 10 ML SYRINGE IV SCH ×4 (06:21→21:49)
[2018-01-24 07:18] LABS: ALT/SGPT 18 U/l (0-40); Albumin 2.7 gm/dL (3.2-5.2); Alkaline Phosphatase 62 U/L (39-117); Blood Urea Nitrogen 26 mg/dl (8-23)
[2018-01-24] MEDS ORDERED: CLOPIDOGREL 75 MG TABLET PO SCH (09:00)
[2018-01-24] MEDS ORDERED: ENOXAPARIN 30 MG/0.3 ML SYRINGE SQ SCH (09:00)
[2018-01-24] MEDS: CLOPIDOGREL 75 MG TABLET PO SCH (09:39)
[2018-01-24] MEDS: ASPIRIN 81 MG TAB.CHEW CHEWED SCH (09:40)
--- NOTE | 2018-01-24 10:21 | Internal Med Progress Note ---
Medical - PN: Subj Patient information: Note initiated : 01/24/18 at 10:19 am Service Date, if different from initiated Date: [] Patient: Jaiden Chavarria 77 y/o M admitted on 01/23/18 for Weakness x2 days. Chief Complaint: [] weakness and blood sugars high Interval history: overnight was confused and agitated. prescribed seroquel which he spat out. received haldol. now mildly sedated getting bed change and bed bath. Blood sugars normalized quickly on insulin drip. - Constitutional Vitals: Vital Signs Temp Pulse Resp BP Pulse Ox 97.6 F 79 13 104/48 97 01/24/18 08:00 01/24/18 09:37 01/24/18 09:37 01/24/18 09:01 01/24/18 09:37 Period Temp Pulse Resp BP Sys/Aguero Pulse Ox Last 24 Hr 97.1 F-98.8 F 37-155 13-27 97-154/48-119 90-100 Intake and Output 01/23/18 01/24/18 01/24/18 21:59 05:59 13:59 Intake Total 1886 / 1886 / 22 887 / 887 Output Total 623 / 623 270 / 270 300 / 300 Balance 1263 / 1263 -248 / -248 587 / 587 Weight 170 lb 9.6 oz Intake & Output: Intake & Output 01/23/18 01/24/18 01/24/18 21:59 05:59 13:59 Intake Total 1886 / 1886 22 / 22 887 / 887 Output Total 623 / 623 270 / 270 300 / 300 Balance 1263 / 1263 -248 / -248 587 / 587 Weight 170 lb 9.6 oz Intake: IV 1586 / 1586 / 887 / 887 Sodium Chloride 0.9% 1,000 ml @ 1567 / 1567 Wide Open IV B[facility]US ONE Rx#: [id number] Dextrose 5%-Ns IV Solution 1, 870 / 870 000 ml @ 150 mls/hr IV .Q6H40M [facility] Rx#:[id number] HumuLIN R 50 UNIT In Sodium / 17 / 17 Chloride 0.9% 100 ml @ 1 UNIT/ HR 2.01 mls/hr IV DUR [facility] Rx#: [id number] Oral 300 / 300 Output: Urine Catheter Amount 623 / 623 270 / 270 300 / 300 Other: Urine Appearance Clear Cloudy Sediment Lo Catheter Cloudy Cloudy Sediment Sediment Urine Color Light Audra Pale Lo Catheter Straw Bright Yellow General appearance: average body habitus, cooperative, disheveled, no acute distress - Respiratory Respiratory exam: Present: normal respiratory exam, CTAB - Cardiovascular Cardiovascular exam: Present: irregular rhythm. Absent: bradycardia, tachycardia - GI/Abdominal GI/Abdominal exam: Present: normal bowel sounds, soft. Absent: distended - Extremities Exam Extremities exam: Absent: calf tenderness, pedal edema Medical - PN: Obj Da - Labs CBC & Chem 7: 01/24/18 04:00 01/24/18 06:00 Labs: Abnormal Lab Results 01/24/18 01/24/18 01/24/18 06:00 04:00 04:00 WBC RBC Hgb Hct Plt Count Lymph % (Auto) Lymph # (Auto) Lymphocytes % Platelet Estimate VBG Lactic Acid Sodium 148 H Chloride 117 H 114 H Carbon Dioxide 19 L 17 L POC Total CO2 Anion Gap POC BUN BUN 26 H 27 H Creatinine 1.4 H 1.4 H POC Creatinine Glucose 165 H 242 H POC Glucose Hemoglobin A1c Uric Acid 8.4 H Calcium POC WB Ioniz Calcium Phosphorus 1.5 L Magnesium Total Protein 5.5 L 5.4 L Albumin 2.7 L 2.6 L Globulin Albumin/Globulin Ratio 0.9 L Triglycerides 172 H 172 H HDL Cholesterol 34 L Beta-Hydroxybutyrate Urine Protein Urine Glucose (UA) Urine Ketones Urine Occult Blood Ur Leukocyte Esterase Urine WBC Urine Bacteria Urine Yeast (Budding) 01/24/18 01/24/18 01/23/18 04:00 01:55 22:15 WBC RBC 4.18 L Hgb 12.4 L Hct 37.3 L Plt Count Lymph % (Auto) 12.6 L Lymph # (Auto) 1.0 L Lymphocytes % Platelet Estimate VBG Lactic Acid Sodium Chloride 111 H 112 H Carbon Dioxide 15 L 17 L POC Total CO2 Anion Gap 17.0 H POC BUN BUN 29 H 31 H Creatinine 1.4 H 1.6 H POC Creatinine Glucose 224 H 163 H POC Glucose Hemoglobin A1c Uric Acid Calcium POC WB Ioniz Calcium Phosphorus Magnesium Total Protein 5.8 L Albumin 2.9 L Globulin Albumin/Globulin Ratio Triglycerides HDL Cholesterol Beta-Hydroxybutyrate Urine Protein Urine Glucose (UA) Urine Ketones Urine Occult Blood Ur Leukocyte Esterase Urine WBC Urine Bacteria Urine Yeast (Budding) 01/23/18 01/23/18 01/23/18 11:10 10:44 10:32 WBC RBC Hgb Hct Plt Count Lymph % (Auto) Lymph # (Auto) Lymphocytes % Platelet Estimate VBG Lactic Acid Sodium Chloride Carbon Dioxide POC Total CO2 13 L Anion Gap POC BUN 36 H BUN Creatinine POC Creatinine 1.4 H Glucose POC Glucose 624 H* Hemoglobin A1c Uric Acid Calcium POC WB Ioniz Calcium 1.45 H Phosphorus Magnesium Total Protein Albumin Globulin Albumin/Globulin Ratio Triglycerides HDL Cholesterol Beta-Hydroxybutyrate 6.69 H Urine Protein 30 A Urine Glucose (UA) >=500 A Urine Ketones 20 A Urine Occult Blood 0.2 A Ur Leukocyte Esterase 500 A Urine WBC 63 H Urine Bacteria Few A Urine Yeast (Budding) Few A 01/23/18 01/23/18 01/23/18 09:56 09:56 09:56 WBC 11.1 H RBC Hgb 17.0 H Hct Plt Count 466 H Lymph % (Auto) Lymph # (Auto) Lymphocytes % 9 L Platelet Estimate Increased A VBG Lactic Acid 4.0 H* Sodium Chloride 92 L Carbon Dioxide 11 L POC Total CO2 Anion Gap 33.0 H POC BUN BUN 38 H Creatinine 2.1 H POC Creatinine Glucose 770 H* POC Glucose Hemoglobin A1c Uric Acid Calcium 11.8 H POC WB Ioniz Calcium Phosphorus Magnesium Total Protein Albumin Globulin 4.4 H Albumin/Globulin Ratio 0.9 L Triglycerides HDL Cholesterol Beta-Hydroxybutyrate Urine Protein Urine Glucose (UA) Urine Ketones Urine Occult Blood Ur Leukocyte Esterase Urine WBC Urine Bacteria Urine Yeast (Budding) 01/23/18 01/23/18 09:55 09:00 WBC RBC Hgb Hct Plt Count Lymph % (Auto) Lymph # (Auto) Lymphocytes % Platelet Estimate VBG Lactic Acid Sodium Chloride Carbon Dioxide 13 L POC Total CO2 Anion Gap 20.0 H POC BUN BUN 31 H Creatinine 1.5 H POC Creatinine Glucose 428 H POC Glucose Hemoglobin A1c 13.6 H Uric Acid Calcium POC WB Ioniz Calcium Phosphorus 7.0 H* Magnesium 2.6 H Total Protein Albumin Globulin Albumin/Globulin Ratio Triglycerides HDL Cholesterol Beta-Hydroxybutyrate Urine Protein Urine Glucose (UA) Urine Ketones Urine Occult Blood Ur Leukocyte Esterase Urine WBC Urine Bacteria Urine Yeast (Budding) Meds: Medications Aspirin (Aspirin) 81 mg CHEWED DAILY [facility] Last Admin: 01/24/18 09:40 Dose: 81 mg Ceftriaxone Sodium (Rocephin) 1 gm IV Q24H [facility] Clopidogrel Bisulfate (Plavix) 75 mg PO DAILY [facility] Last Admin: 01/24/18 09:39 Dose: 75 mg Diagnostic Test (Pha) (Accu-Chek) 1 each FS Q1H [facility] Last Admin: 01/24/18 10:15 Dose: 1 each Enoxaparin Sodium (Lovenox) 30 mg SQ DAILY [facility] Last Admin: 01/24/18 09:39 Dose: 30 mg Haloperidol Lactate (Haldol) 4 mg IV Q2HP PRN PRN Reason: ANXIETY/SEDATION Insulin Human Regular 50 unit/ (Sodium Chloride) 100.5 mls @ 2.01 mls/hr IV DUR [facility]; Protocol Last Titration: 01/24/18 10:15 Dose: 1.5 unit/hr, 3.01 mls/hr Dextrose/Sodium Chloride (Dextrose 5%-Ns Iv Solution) 1,000 mls @ 150 mls/hr IV .Q6H40M [facility] Last Admin: 01/24/18 06:49 Dose: 150 mls/hr Diltiazem HCl 125 mg/ Dextrose 125 mls @ 5 mls/hr IV Q12H [facility]; Protocol Last Admin: 01/24/18 04:03 Dose: Not Given Ondansetron HCl (Zofran) 4 mg IV Q4-6HP PRN PRN Reason: Nausea And Vomiting Quetiapine Fumarate (Seroquel) 25 mg PO HS [facility] Last Admin: 01/24/18 01:01 Dose: 25 mg Sodium Chloride (Saline Flush) 10 ml IV Q8 [facility] Last Admin: 01/24/18 06:21 Dose: Not Given Medical - PN: A/P - Time Spent With Patient Total time spent is greater than 50% in coordination of care (as documented) at patient's floor/unit and/or counseling patient: Greater than 35 minutes (1) DKA (diabetic ketoacidoses) Status: Acute Assessment and plan: gap 13 and CO2 17. cont insuliin drip till CO2 22 Current Visit: Yes (2) Acute on chronic renal failure Status: Acute Assessment and plan: hydrate and avoid nsaid or nephotoxic drugs. Current Visit: Yes (3) Acute UTI Problem details: right ankle surgery Status: Acute Assessment and plan: cont rocephin 7 days treatment can switch to oral prior to discharge. Current Visit: No (4) SIRS (systemic inflammatory response syndrome) Problem details: resolved Status: Acute Current Visit: Yes (5) CAD (coronary artery disease) Problem details: stable no complaints Status: Chronic Current Visit: No Medical - PN: Qual - Stroke Symptom Onset Unknown: No - VTE Deep Vein Thrombosis/Pulmonary Embolism Present on Admission: No
[2018-01-24] MEDS ORDERED: POTASSIUM PHOSPHATE 40 MEQ in DEXTROSE 5% IN WATER 500 ML IV ONE (10:39)
[2018-01-24] MEDS ORDERED: DILTIAZEM 120 MG CAP.XL.24H PO ONE (11:02)
[2018-01-24] MEDS: cefTRIAXone 1 GM VIAL IV SCH (11:27)
[2018-01-24] MEDS ORDERED: DILTIAZEM 125 MG in DEXTROSE 5% IN WATER 100 ML IV PRN (12:00)
[2018-01-24] MEDS: DEXTROSE 5%-1/2NS W/20MEQ KCL 1,000 ML IV SCH ×2 (12:07→18:48)
[2018-01-24 13:10] LABS: ALT/SGPT 16 U/l (0-40); Albumin 2.6 gm/dL (3.2-5.2); Alkaline Phosphatase 60 U/L (39-117); Blood Urea Nitrogen 23 mg/dl (8-23)
[2018-01-24] MEDS: INSULIN LISPRO 1 UNIT/0.01 ML UNIT SQ SCH ×2 (16:55→21:48)
[2018-01-24] MEDS: HALOPERIDOL LACTATE 5 MG/ML VIAL IV PRN ×3 (19:48→23:30)
[2018-01-24] MEDS: ENOXAPARIN 40 MG/0.4 ML SYRINGE SQ SCH (21:51)
[2018-01-25] MEDS: DEXTROSE 5%-1/2NS W/20MEQ KCL 1,000 ML IV SCH ×2 (01:52→08:29)
[2018-01-25] MEDS ORDERED: ACETAMINOPHEN 650 MG/65 ML BOTTLE IV PRN (02:09)
[2018-01-25] MEDS ORDERED: ACETAMINOPHEN 500 MG TABLET PO PRN (02:09)
[2018-01-25] MEDS ORDERED: OLANZapine 2.5 MG TABLET PO ONE (02:38)
[2018-01-25] MEDS ORDERED: ACETAMINOPHEN 1,000 MG/100 ML BOTTLE IV ONE (02:40)
[2018-01-25] MEDS: OLANZapine 5 MG TABLET PO SCH ×2 (02:44→21:43)
[2018-01-25] MEDS: 0.9 % SODIUM CHLORIDE 10 ML SYRINGE IV SCH ×3 (05:59→22:00)
[2018-01-25] MEDS ORDERED: POTASSIUM CHLORIDE 20 MEQ TABLET PO ONE (08:29)
[2018-01-25] MEDS: ENOXAPARIN 40 MG/0.4 ML SYRINGE SQ SCH ×2 (08:39→21:43)
[2018-01-25] MEDS: CLOPIDOGREL 75 MG TABLET PO SCH (08:40)
[2018-01-25] MEDS: INSULIN GLARGINE, HUMAN 1 UNIT/0.01 ML SQ SCH (08:40)
[2018-01-25] MEDS: INSULIN LISPRO 1 UNIT/0.01 ML UNIT SQ SCH ×4 (08:40→21:46)
[2018-01-25] MEDS: DILTIAZEM 120 MG CAP.XL.24H PO SCH (08:40)
[2018-01-25] MEDS: ASPIRIN 81 MG TAB.CHEW CHEWED SCH (08:40)
[2018-01-25] MEDS: cefTRIAXone 1 GM VIAL IV SCH (09:57)
[2018-01-25] MEDS: POTASSIUM CHLORIDE 20 MEQ in 0.45 % SODIUM CHLORIDE 1,000 ML IV SCH ×3 (11:52→19:13)
--- NOTE | 2018-01-25 17:47 | Internal Med Progress Note ---
Medical - PN: Subj Patient information: Note initiated : 01/25/18 at 5:45 pm Service Date, if different from initiated Date: [] Patient: Jaiden Chavarria 77 y/o M admitted on 01/23/18 for Weakness x2 Days/ Diabetic Ketoacidoses, UTI. Chief Complaint: [] Interval history: Patient aspirated part of breakfast while eating eggs and cough for 15 minutes off and on. Patient has been intermittently uncooperative with taking medications and intermittently mildly agitated. He is not combative. Patient is accompanied by her neighbor's who report that he has mentally been clear of mind last month but physically has to use a walker and does seem to have deteriorated with chemotherapy treatment for his prostate cancer. Patient has seemed to be a little depressed and more incontinent of urine based on their visits with him and to his house. Patient typically has to self catheter. Patient had never previously been diagnosed with diabetes and neighbors had questioned him regarding this in the past patient himself currently unable to give a meaningful history - Constitutional Vitals: Vital Signs Temp Pulse Resp BP Pulse Ox 100.0 F H 81 23 H 113/62 98 01/25/18 17:02 01/25/18 14:55 01/25/18 17:02 01/25/18 17:02 01/25/18 17:02 Period Temp Pulse Resp BP Sys/Aguero Pulse Ox Last 24 Hr 97.4 F-100.5 F 46-92 11-28 103-161/55-148 93-100 Intake and Output 01/25/18 01/25/18 01/25/18 05:59 13:59 21:59 Intake Total 1100 / 1100 1495 / 1495 Output Total 1180 / 1180 800 / 800 500 / 500 Balance -80 / -80 695 / 695 -500 / -500 Weight 177 lb Patient Weight 01/26/18 05:59 Weight 177 lb Intake & Output: Intake & Output 01/25/18 01/25/18 01/25/18 05:59 13:59 21:59 Intake Total 1100 / 1100 1495 / 1495 Output Total 1180 / 1180 800 / 800 500 / 500 Balance -80 / -80 695 / 695 -500 / -500 Weight 177 lb Intake: IV 1100 / 1100 1495 / 1495 OFIRMEV 1,000 mg In 100 ml @ 0 100 / 100 mls/hr IV .STK-MED ONE Rx#: [id number] Dextrose 5%-1/2Ns W/20Meq KCl 1 1000 / 1000 1495 / 1495 ,000 ml @ 150 mls/hr IV .Q6H40M [facility] Rx#:[id number] Output: Urine Catheter Amount 1180 / 1180 800 / 800 500 / 500 Other: Urine Appearance Lo Catheter Cloudy Urine Color Lo Catheter Straw - Respiratory Respiratory exam: Present: CTAB. Absent: rales - Cardiovascular Cardiovascular exam: Present: irregular rhythm - GI/Abdominal GI/Abdominal exam: Present: soft. Absent: rigid, tenderness - Extremities Exam Extremities exam: Absent: pedal edema - Neurological Exam Neurological exam: Present: alert, altered. Absent: oriented X3 - Psychiatric Psychiatric exam: Present: anxious Medical - PN: Obj Da - Labs CBC & Chem 7: 01/24/18 04:00 01/24/18 12:00 Labs: Abnormal Lab Results 01/24/18 01/24/18 01/24/18 12:00 06:00 04:00 WBC RBC Hgb Hct Plt Count Lymph % (Auto) Lymph # (Auto) Lymphocytes % Platelet Estimate VBG Lactic Acid Sodium 146 H 148 H Potassium 3.1 L Chloride 119 H 117 H Carbon Dioxide 16 L 19 L POC Total CO2 Anion Gap POC BUN BUN 26 H Creatinine 1.3 H 1.4 H POC Creatinine Glucose 238 H 165 H POC Glucose Hemoglobin A1c Uric Acid Calcium 8.5 L POC WB Ioniz Calcium Phosphorus Magnesium Total Protein 5.2 L 5.5 L Albumin 2.6 L 2.7 L Globulin Albumin/Globulin Ratio Triglycerides 172 H HDL Cholesterol 34 L Beta-Hydroxybutyrate Urine Protein Urine Glucose (UA) Urine Ketones Urine Occult Blood Ur Leukocyte Esterase Urine WBC Urine Bacteria Urine Yeast (Budding) 01/24/18 01/24/18 01/24/18 04:00 04:00 01:55 WBC RBC 4.18 L Hgb 12.4 L Hct 37.3 L Plt Count Lymph % (Auto) 12.6 L Lymph # (Auto) 1.0 L Lymphocytes % Platelet Estimate VBG Lactic Acid Sodium Potassium Chloride 114 H 111 H Carbon Dioxide 17 L 15 L POC Total CO2 Anion Gap 17.0 H POC BUN BUN 27 H 29 H Creatinine 1.4 H 1.4 H POC Creatinine Glucose 242 H 224 H POC Glucose Hemoglobin A1c Uric Acid 8.4 H Calcium POC WB Ioniz Calcium Phosphorus 1.5 L Magnesium Total Protein 5.4 L 5.8 L Albumin 2.6 L 2.9 L Globulin Albumin/Globulin Ratio 0.9 L Triglycerides 172 H HDL Cholesterol Beta-Hydroxybutyrate Urine Protein Urine Glucose (UA) Urine Ketones Urine Occult Blood Ur Leukocyte Esterase Urine WBC Urine Bacteria Urine Yeast (Budding) 01/23/18 01/23/18 01/23/18 22:15 11:10 10:44 WBC RBC Hgb Hct Plt Count Lymph % (Auto) Lymph # (Auto) Lymphocytes % Platelet Estimate VBG Lactic Acid Sodium Potassium Chloride 112 H Carbon Dioxide 17 L POC Total CO2 13 L Anion Gap POC BUN 36 H BUN 31 H Creatinine 1.6 H POC Creatinine 1.4 H Glucose 163 H POC Glucose 624 H* Hemoglobin A1c Uric Acid Calcium POC WB Ioniz Calcium 1.45 H Phosphorus Magnesium Total Protein Albumin Globulin Albumin/Globulin Ratio Triglycerides HDL Cholesterol Beta-Hydroxybutyrate Urine Protein 30 A Urine Glucose (UA) >=500 A Urine Ketones 20 A Urine Occult Blood 0.2 A Ur Leukocyte Esterase 500 A Urine WBC 63 H Urine Bacteria Few A Urine Yeast (Budding) Few A 01/23/18 01/23/18 01/23/18 10:32 09:56 09:56 WBC RBC Hgb Hct Plt Count Lymph % (Auto) Lymph # (Auto) Lymphocytes % Platelet Estimate VBG Lactic Acid 4.0 H* Sodium Potassium Chloride 92 L Carbon Dioxide 11 L POC Total CO2 Anion Gap 33.0 H POC BUN BUN 38 H Creatinine 2.1 H POC Creatinine Glucose 770 H* POC Glucose Hemoglobin A1c Uric Acid Calcium 11.8 H POC WB Ioniz Calcium Phosphorus Magnesium Total Protein Albumin Globulin 4.4 H Albumin/Globulin Ratio 0.9 L Triglycerides HDL Cholesterol Beta-Hydroxybutyrate 6.69 H Urine Protein Urine Glucose (UA) Urine Ketones Urine Occult Blood Ur Leukocyte Esterase Urine WBC Urine Bacteria Urine Yeast (Budding) 01/23/18 01/23/18 01/23/18 09:56 09:55 09:00 WBC 11.1 H RBC Hgb 17.0 H Hct Plt Count 466 H Lymph % (Auto) Lymph # (Auto) Lymphocytes % 9 L Platelet Estimate Increased A VBG Lactic Acid Sodium Potassium Chloride Carbon Dioxide 13 L POC Total CO2 Anion Gap 20.0 H POC BUN BUN 31 H Creatinine 1.5 H POC Creatinine Glucose 428 H POC Glucose Hemoglobin A1c 13.6 H Uric Acid Calcium POC WB Ioniz Calcium Phosphorus 7.0 H* Magnesium 2.6 H Total Protein Albumin Globulin Albumin/Globulin Ratio Triglycerides HDL Cholesterol Beta-Hydroxybutyrate Urine Protein Urine Glucose (UA) Urine Ketones Urine Occult Blood Ur Leukocyte Esterase Urine WBC Urine Bacteria Urine Yeast (Budding) Meds: Medications Acetaminophen (Tylenol) 1,000 mg PO Q6HP PRN PRN Reason: PAIN/FEVER > 101 Aspirin (Aspirin) 81 mg CHEWED DAILY [facility] Last Admin: 01/25/18 08:40 Dose: 81 mg Ceftriaxone Sodium (Rocephin) 1 gm IV Q24H [facility] Last Admin: 01/25/18 09:57 Dose: 1 gm Clopidogrel Bisulfate (Plavix) 75 mg PO DAILY [facility] Last Admin: 01/25/18 08:40 Dose: 75 mg Diagnostic Test (Pha) (Accu-Chek) 1 each FS [facility] Last Admin: 01/25/18 12:45 Dose: 1 each Diltiazem HCl (Cardizem Cd) 120 mg PO DAILY [facility] Last Admin: 01/25/18 08:40 Dose: 120 mg Enoxaparin Sodium (Lovenox) 40 mg SQ BID [facility] Last Admin: 01/25/18 08:39 Dose: 40 mg Haloperidol Lactate (Haldol) 4 mg IV Q2HP PRN PRN Reason: ANXIETY/SEDATION Last Admin: 01/24/18 23:30 Dose: 4 mg Diltiazem HCl 125 mg/ Dextrose 125 mls @ 5 mls/hr IV Q12HP [facility]N; Protocol PRN Reason: Tachyarrhythmias Acetaminophen (Ofirmev) 650 mg in 65 mls @ 130 mls/hr IV Q6HP PRN PRN Reason: PAIN/FEVER > 101 Potassium Chloride 20 meq/ (Sodium Chloride) 1,010 mls @ 150 mls/hr IV .Q6H44M [facility] Last Admin: 01/25/18 11:52 Dose: 150 mls/hr Insulin Glargine (Lantus) 10 unit SQ DAILY [facility] Last Admin: 01/25/18 08:40 Dose: 10 unit Insulin Human Lispro (Humalog) 0 unit SQ ACHS [facility]; Protocol Last Admin: 01/25/18 12:54 Dose: 6 unit Olanzapine (Zyprexa) 5 mg PO HS [facility] Last Admin: 01/25/18 02:44 Dose: Not Given Ondansetron HCl (Zofran) 4 mg IV Q4-6HP PRN PRN Reason: Nausea And Vomiting Quetiapine Fumarate (Seroquel) 25 mg PO HS [facility] Last Admin: 01/24/18 21:49 Dose: Not Given Sodium Chloride (Saline Flush) 10 ml IV Q8 [facility] Last Admin: 01/25/18 12:44 Dose: 10 ml Medical - PN: A/P - Time Spent With Patient Total time spent is greater than 50% in coordination of care (as documented) at patient's floor/unit and/or counseling patient: Greater than 35 minutes (1) DKA (diabetic ketoacidoses) Status: Acute Assessment and plan: resolved. potassium low and hypernatremic. Adjust fluids Current Visit: Yes (2) Acute on chronic renal failure Status: Acute Assessment and plan: improving. CReatinine now 1.3. Cont D5 1/2 NS with potassium Current Visit: Yes (3) Acute UTI Problem details: right ankle surgery Status: Acute Assessment and plan: cont rocephin 7 days treatment can switch to oral prior to discharge. History of self straight cath. Await cultures Current Visit: No (4) SIRS (systemic inflammatory response syndrome) Problem details: resolved Status: Resolved Current Visit: Yes (5) CAD (coronary artery disease) Problem details: stable no complaints Status: Chronic Assessment and plan: stable asymptomatic Current Visit: No (6) Atrial fibrillation Status: Acute Assessment and plan: rate controlled. Current Visit: No Medical - PN: Qual - Stroke Symptom Onset Unknown: No - VTE Deep Vein Thrombosis/Pulmonary Embolism Present on Admission: No
[2018-01-25] MEDS: QUEtiapine 25 MG TABLET PO SCH (21:44)
[2018-01-26] MEDS: POTASSIUM CHLORIDE 20 MEQ in 0.45 % SODIUM CHLORIDE 1,000 ML IV SCH ×4 (02:04→21:56)
[2018-01-26] MEDS: 0.9 % SODIUM CHLORIDE 10 ML SYRINGE IV SCH ×4 (05:38→20:02)
[2018-01-26 07:50] LABS: Basophils # (Auto) 0 K/mcL (0.0-0.3); Basophils % (Auto) 0.3 % (0.0-2.0); Eosinophils # (Auto) 0.3 K/mcL (0.0-0.7); Eosinophils % (Auto) 4.1 % (0.0-7.0); Granulocytes % (Auto) 76.7 % (38.0-78.0); Lymphocytes # (Auto) 0.8 K/mcL (1.5-4.8); Lymphocytes % (Auto) 11.6 % (15.5-49.0); Mean Cell Volume 88.8 fL (80.0-100.0); Mean Corpuscular HGB Conc 33.7 g/dL (31.0-36.0); Mean Corpuscular Hemoglobin 29.9 pg (26.0-34.0); Monocytes # (Auto) 0.5 K/mcL (0.1-0.9); Monocytes % (Auto) 7.3 % (1.0-12.0); Platelet Count 249 K/mcL (140-440); RBC 4.02 M/mcL (4.50-5.90); Red Cell Distribution Width 14.8 % (11.5-14.5)
[2018-01-26 07:59] LABS: Blood Urea Nitrogen 10 mg/dl (8-23)
--- NOTE | 2018-01-26 08:02 | XRay Report ---
CLINICAL INFORMATION: Cough and fever COMPARISON: 01/23/2018 FINDINGS: Mild cardiomegaly is unchanged. Mediastinum and pulmonary vessels are normal. Small bibasilar infiltrates have developed. No definite effusions IMPRESSION: Small bibasilar infiltrates Interpreted and Authenticated by: Tray Prieto 01/26/18
[2018-01-26] MEDS: INSULIN LISPRO 1 UNIT/0.01 ML UNIT SQ SCH ×4 (08:12→20:12)
[2018-01-26] MEDS: metroNIDAZOLE 500 MG/100 ML BAG IV SCH ×3 (08:16→21:55)
[2018-01-26 09:12] LABS: Appearance,Urine CLEAR; Bacteria,Urine FEW /hpf (0); Bilirubin,Urine NEG (NEG); Color,Urine STRAW; Glucose,Urine (UA) 50 mg/dL (NEG); Leukocyte Esterase,Urine 25 /uL (NEG); Mucus,Urine FEW /hpf (0); Protein,Urine 30 mg/dL (NEG); Specific Gravity,Urine 1.009 (1.000-1.035); Urine Blood 0.2 mg/dL (<0.03); Urine RBC 13 /hpf (0-1); Urine Squamous Epithelial Cell 0 /hpf (0-4); Urine WBC 6 /hpf (0-4); Urobilinogen,Urine NEG (NEG)
[2018-01-26] MEDS: INSULIN GLARGINE, HUMAN 1 UNIT/0.01 ML SQ SCH (09:38)
[2018-01-26] MEDS: CLOPIDOGREL 75 MG TABLET PO SCH (09:38)
[2018-01-26] MEDS: ASPIRIN 81 MG TAB.CHEW CHEWED SCH (09:38)
[2018-01-26] MEDS: DILTIAZEM 120 MG CAP.XL.24H PO SCH (09:38)
[2018-01-26] MEDS: ENOXAPARIN 40 MG/0.4 ML SYRINGE SQ SCH ×2 (09:38→20:01)
[2018-01-26] MEDS: cefTRIAXone 1 GM VIAL IV SCH (09:38)
[2018-01-26] MEDS ORDERED: POTASSIUM PHOSPHATE 40 MEQ in DEXTROSE 5% IN WATER 500 ML IV ONE (10:11)
[2018-01-26] MEDS ORDERED: MAGNESIUM SULFATE IN WATER 4 GM/100 ML BAG IV ONE (10:11)
--- NOTE | 2018-01-26 10:19 | Internal Med Progress Note ---
Medical - PN: Subj Patient information: Note initiated : 01/26/18 at 10:16 am Service Date, if different from initiated Date: [] Patient: Jaiden Chavarria 77 y/o M admitted on 01/23/18 for Weakness x2 Days/ Diabetic Ketoacidoses, UTI. Chief Complaint: [] Interval history: pt more alert and oriented but had fever overnight and still coughing. Pt found unsafe to swallow yesterday. Melo in place with no predominant growth. Has hx of urine retention and prostate cancer doing self caths at home. Blood sugars ok but is NPO. DX of diabetes is new with HgbA1c 13. - Constitutional Vitals: Vital Signs Temp Pulse Resp BP Pulse Ox 100.5 F H 88 20 168/78 96 01/26/18 06:01 01/26/18 06:01 01/26/18 06:01 01/26/18 05:03 01/26/18 06:01 Period Temp Pulse Resp BP Sys/Aguero Pulse Ox Last 24 Hr 99.0 F-100.5 F 29-107 15-28 77-168/49-148 92-100 Intake and Output 01/25/18 01/26/18 01/26/18 21:59 05:59 13:59 Intake Total 1075 / 1075 1010 / 1010 1110 / 1110 Output Total 500 / 500 1480 / 1480 140 / 140 Balance 575 / 575 -470 / -470 970 / 970 Weight 180 lb 4.8 oz Intake & Output: Intake & Output 01/25/18 01/26/18 01/26/18 21:59 05:59 13:59 Intake Total 1075 / 1075 1010 / 1010 1110 / 1110 Output Total 500 / 500 1480 / 1480 140 / 140 Balance 575 / 575 -470 / -470 970 / 970 Weight 180 lb 4.8 oz Intake: IV 1075 / 1075 1010 / 1010 1110 / 1110 Potassium Chloride 20 Meq In 1010 / 1010 1010 / 1010 1010 / 1010 Sodium Chloride 0.45% 1,000 ml @ 150 mls/hr IV .Q6H44M [facility] Rx# :[id number] Output: Urine Catheter Amount 500 / 500 1480 / 1480 140 / 140 Other: Urine Appearance Clear Clear Clear Melo Catheter Clear Clear Urine Color Bright Yellow Bright Yellow Bright Yellow Melo Catheter Bright Yellow Bright Yellow Urine Odor Normal Melo Catheter Normal Normal Stool Size Large Stool Color Yellow Medical - PN: Obj Da - Labs CBC & Chem 7: 01/26/18 07:07 01/26/18 07:07 Labs: Abnormal Lab Results 01/26/18 01/26/18 01/26/18 07:40 07:07 07:07 WBC RBC 4.02 L Hgb 12.0 L Hct 35.7 L RDW 14.8 H Plt Count Lymph % (Auto) 11.6 L Lymph # (Auto) 0.8 L Lymphocytes % Platelet Estimate VBG Lactic Acid Sodium Potassium Chloride 111 H Carbon Dioxide 16 L POC Total CO2 Anion Gap POC BUN BUN Creatinine POC Creatinine Glucose 156 H POC Glucose Hemoglobin A1c Uric Acid Calcium 8.3 L POC WB Ioniz Calcium Phosphorus 1.0 L Magnesium Total Protein Albumin Globulin Albumin/Globulin Ratio Triglycerides HDL Cholesterol Beta-Hydroxybutyrate Urine Protein 30 A Urine Glucose (UA) 50 A Urine Ketones Urine Occult Blood 0.2 A Ur Leukocyte Esterase 25 A Urine RBC 13 H Urine WBC 6 H Urine Bacteria Few A Urine Yeast (Budding) 01/24/18 01/24/18 01/24/18 12:00 06:00 04:00 WBC RBC Hgb Hct RDW Plt Count Lymph % (Auto) Lymph # (Auto) Lymphocytes % Platelet Estimate VBG Lactic Acid Sodium 146 H 148 H Potassium 3.1 L Chloride 119 H 117 H Carbon Dioxide 16 L 19 L POC Total CO2 Anion Gap POC BUN BUN 26 H Creatinine 1.3 H 1.4 H POC Creatinine Glucose 238 H 165 H POC Glucose Hemoglobin A1c Uric Acid Calcium 8.5 L POC WB Ioniz Calcium Phosphorus Magnesium Total Protein 5.2 L 5.5 L Albumin 2.6 L 2.7 L Globulin Albumin/Globulin Ratio Triglycerides 172 H HDL Cholesterol 34 L Beta-Hydroxybutyrate Urine Protein Urine Glucose (UA) Urine Ketones Urine Occult Blood Ur Leukocyte Esterase Urine RBC Urine WBC Urine Bacteria Urine Yeast (Budding) 01/24/18 01/24/18 01/24/18 04:00 04:00 01:55 WBC RBC 4.18 L Hgb 12.4 L Hct 37.3 L RDW Plt Count Lymph % (Auto) 12.6 L Lymph # (Auto) 1.0 L Lymphocytes % Platelet Estimate VBG Lactic Acid Sodium Potassium Chloride 114 H 111 H Carbon Dioxide 17 L 15 L POC Total CO2 Anion Gap 17.0 H POC BUN BUN 27 H 29 H Creatinine 1.4 H 1.4 H POC Creatinine Glucose 242 H 224 H POC Glucose Hemoglobin A1c Uric Acid 8.4 H Calcium POC WB Ioniz Calcium Phosphorus 1.5 L Magnesium Total Protein 5.4 L 5.8 L Albumin 2.6 L 2.9 L Globulin Albumin/Globulin Ratio 0.9 L Triglycerides 172 H HDL Cholesterol Beta-Hydroxybutyrate Urine Protein Urine Glucose (UA) Urine Ketones Urine Occult Blood Ur Leukocyte Esterase Urine RBC Urine WBC Urine Bacteria Urine Yeast (Budding) 01/23/18 01/23/18 01/23/18 22:15 11:10 10:44 WBC RBC Hgb Hct RDW Plt Count Lymph % (Auto) Lymph # (Auto) Lymphocytes % Platelet Estimate VBG Lactic Acid Sodium Potassium Chloride 112 H Carbon Dioxide 17 L POC Total CO2 13 L Anion Gap POC BUN 36 H BUN 31 H Creatinine 1.6 H POC Creatinine 1.4 H Glucose 163 H POC Glucose 624 H* Hemoglobin A1c Uric Acid Calcium POC WB Ioniz Calcium 1.45 H Phosphorus Magnesium Total Protein Albumin Globulin Albumin/Globulin Ratio Triglycerides HDL Cholesterol Beta-Hydroxybutyrate Urine Protein 30 A Urine Glucose (UA) >=500 A Urine Ketones 20 A Urine Occult Blood 0.2 A Ur Leukocyte Esterase 500 A Urine RBC Urine WBC 63 H Urine Bacteria Few A Urine Yeast (Budding) Few A 01/23/18 01/23/18 01/23/18 10:32 09:56 09:56 WBC RBC Hgb Hct RDW Plt Count Lymph % (Auto) Lymph # (Auto) Lymphocytes % Platelet Estimate VBG Lactic Acid 4.0 H* Sodium Potassium Chloride 92 L Carbon Dioxide 11 L POC Total CO2 Anion Gap 33.0 H POC BUN BUN 38 H Creatinine 2.1 H POC Creatinine Glucose 770 H* POC Glucose Hemoglobin A1c Uric Acid Calcium 11.8 H POC WB Ioniz Calcium Phosphorus Magnesium Total Protein Albumin Globulin 4.4 H Albumin/Globulin Ratio 0.9 L Triglycerides HDL Cholesterol Beta-Hydroxybutyrate 6.69 H Urine Protein Urine Glucose (UA) Urine Ketones Urine Occult Blood Ur Leukocyte Esterase Urine RBC Urine WBC Urine Bacteria Urine Yeast (Budding) 01/23/18 01/23/18 01/23/18 09:56 09:55 09:00 WBC 11.1 H RBC Hgb 17.0 H Hct RDW Plt Count 466 H Lymph % (Auto) Lymph # (Auto) Lymphocytes % 9 L Platelet Estimate Increased A VBG Lactic Acid Sodium Potassium Chloride Carbon Dioxide 13 L POC Total CO2 Anion Gap 20.0 H POC BUN BUN 31 H Creatinine 1.5 H POC Creatinine Glucose 428 H POC Glucose Hemoglobin A1c 13.6 H Uric Acid Calcium POC WB Ioniz Calcium Phosphorus 7.0 H* Magnesium 2.6 H Total Protein Albumin Globulin Albumin/Globulin Ratio Triglycerides HDL Cholesterol Beta-Hydroxybutyrate Urine Protein Urine Glucose (UA) Urine Ketones Urine Occult Blood Ur Leukocyte Esterase Urine RBC Urine WBC Urine Bacteria Urine Yeast (Budding) Meds: Medications Acetaminophen (Tylenol) 1,000 mg PO Q6HP PRN PRN Reason: PAIN/FEVER > 101 Last Admin: 01/26/18 09:38 Dose: 1,000 mg Aspirin (Aspirin) 81 mg CHEWED DAILY [facility] Last Admin: 01/26/18 09:38 Dose: 81 mg Ceftriaxone Sodium (Rocephin) 1 gm IV Q24H [facility] Last Admin: 01/26/18 09:38 Dose: 1 gm Clopidogrel Bisulfate (Plavix) 75 mg PO DAILY [facility] Last Admin: 01/26/18 09:38 Dose: 75 mg Diagnostic Test (Pha) (Accu-Chek) 1 each FS ACHS [facility] Last Admin: 01/26/18 08:12 Dose: 1 each Diltiazem HCl (Cardizem Cd) 120 mg PO DAILY [facility] Last Admin: 01/26/18 09:38 Dose: 120 mg Doxazosin Mesylate (Cardura) 1 mg PO HS [facility] Enoxaparin Sodium (Lovenox) 40 mg SQ BID [facility] Last Admin: 01/26/18 09:38 Dose: 40 mg Haloperidol Lactate (Haldol) 4 mg IV Q2HP PRN PRN Reason: ANXIETY/SEDATION Last Admin: 01/24/18 23:30 Dose: 4 mg Diltiazem HCl 125 mg/ Dextrose 125 mls @ 5 mls/hr IV Q12HP PRN; Protocol PRN Reason: Tachyarrhythmias Acetaminophen (Ofirmev) 650 mg in 65 mls @ 130 mls/hr IV Q6HP PRN PRN Reason: PAIN/FEVER > 101 Last Infusion: 01/25/18 18:32 Dose: Infused Potassium Chloride 20 meq/ (Sodium Chloride) 1,010 mls @ 150 mls/hr IV .Q6H44M [facility] Last Admin: 01/26/18 09:44 Dose: 150 mls/hr Metronidazole (Flagyl) 500 mg in 100 mls @ 100 mls/hr IV Q8H [facility] Last Infusion: 01/26/18 09:16 Dose: Infused Potassium Phosphate 40 meq/ (Dextrose) 509.0909 mls @ 127.273 mls/hr IV ONCE ONE Stop: 01/26/18 14:10 Insulin Glargine (Lantus) 10 unit SQ DAILY [facility] Last Admin: 01/26/18 09:38 Dose: 10 unit Insulin Human Lispro (Humalog) 0 unit SQ ACHS [facility]; Protocol Last Admin: 01/26/18 08:12 Dose: Not Given Magnesium Sulfate (Magnesium Sulf 4gm Bag) 4 gm IV ONCE ONE Stop: 01/26/18 10:12 Olanzapine (Zyprexa) 5 mg PO HS [facility] Last Admin: 01/25/18 21:43 Dose: 5 mg Ondansetron HCl (Zofran) 4 mg IV Q4-6HP PRN PRN Reason: Nausea And Vomiting Sodium Chloride (Saline Flush) 10 ml IV Q8 [facility] Last Admin: 01/26/18 05:38 Dose: 10 ml Medical - PN: A/P - Time Spent With Patient Total time spent is greater than 50% in coordination of care (as documented) at patient's floor/unit and/or counseling patient: Greater than 35 minutes (1) DKA (diabetic ketoacidoses) Status: Acute Assessment and plan: resolved. but hyperchloremic and potassium, phos and magnesium low. Will need ongoing treatment for newly dx diabetes NIDDM Current Visit: Yes (2) Acute on chronic renal failure Status: Acute Assessment and plan: bladder outlet obstruction. Start Cardura. melo to remain in place for now. Voiding trial prior to discharge. renal function has normalized Current Visit: Yes (3) Acute UTI Problem details: no predominant organism in confused man that was doing self cath. Status: Acute Assessment and plan: cont rocephin 7 days treatment can switch to oral prior to discharge. History of self straight cath. skin orquidea culture. Rocephin for now. Current Visit: No (4) SIRS (systemic inflammatory response syndrome) Problem details: resolved Status: Resolved Current Visit: Yes (5) CAD (coronary artery disease) Problem details: stable no complaints Status: Chronic Assessment and plan: stable asymptomatic Current Visit: No (6) Atrial fibrillation Status: Acute Assessment and plan: rate controlled on oral dilt. will cont meds and ICe chips Current Visit: No (7) Aspiration pneumonitis Problem details: with coughing aspiration of eggs yest morning. Status: Acute Assessment and plan: flagyl started. repeat speech evaluation today and prob need MBS tomorrow morning. Current Visit: Yes - Narrative A/P Narrative: transfer to medical floor Medical - PN: Qual - Stroke Symptom Onset Unknown: No - VTE Deep Vein Thrombosis/Pulmonary Embolism Present on Admission: No
[2018-01-26] MEDS: OLANZapine 5 MG TABLET PO SCH (20:01)
[2018-01-26] MEDS ORDERED: DOXAZOSIN 1 MG TABLET PO SCH (21:00)
[2018-01-27] MEDS: POTASSIUM CHLORIDE 20 MEQ in 0.45 % SODIUM CHLORIDE 1,000 ML IV SCH ×2 (05:18→14:09)
[2018-01-27] MEDS: metroNIDAZOLE 500 MG/100 ML BAG IV SCH ×3 (05:18→21:54)
[2018-01-27] MEDS: 0.9 % SODIUM CHLORIDE 10 ML SYRINGE IV SCH ×4 (05:19→21:54)
[2018-01-27 06:35] LABS: Basophils # (Auto) 0 K/mcL (0.0-0.3); Basophils % (Auto) 0.1 % (0.0-2.0); Eosinophils # (Auto) 0.3 K/mcL (0.0-0.7); Eosinophils % (Auto) 4.2 % (0.0-7.0); Granulocytes % (Auto) 74.1 % (38.0-78.0); Lymphocytes # (Auto) 0.8 K/mcL (1.5-4.8); Mean Corpuscular HGB Conc 34.1 g/dL (31.0-36.0); Mean Corpuscular Hemoglobin 30.3 pg (26.0-34.0); Monocytes # (Auto) 0.7 K/mcL (0.1-0.9); Monocytes % (Auto) 9.6 % (1.0-12.0); Platelet Count 241 K/mcL (140-440); RBC 3.95 M/mcL (4.50-5.90); Red Cell Distribution Width 15.2 % (11.5-14.5)
[2018-01-27 07:50] LABS: ALT/SGPT 18 U/l (0-40); Albumin 2.6 gm/dL (3.2-5.2); Albumin/Globulin Ratio 0.9 (1.0-2.3); Alkaline Phosphatase 74 U/L (39-117); Bilirubin,Direct < 0.2 mg/dL (0.0-0.3); Blood Urea Nitrogen 8 mg/dl (8-23); Gamma Glutamyl Transpeptidase 16 U/L (8-61)
--- NOTE | 2018-01-27 08:05 | XRay Report ---
CLINICAL INFORMATION: aspiration and fever and cough, rll crackles COMPARISON: 01/26/2018 FINDINGS: Mild cardiomegaly is unchanged. 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 Pulmonary vessels are normal. Small bibasilar infiltrates show slight progression IMPRESSION: Slight worsening small bibasilar infiltrates - suspect aspiration Interpreted and Authenticated by: Tray Prieto 01/27/18
[2018-01-27] MEDS: INSULIN LISPRO 1 UNIT/0.01 ML UNIT SQ SCH ×3 (08:43→20:20)
[2018-01-27] MEDS: DILTIAZEM 120 MG CAP.XL.24H PO SCH (08:46)
[2018-01-27] MEDS: CLOPIDOGREL 75 MG TABLET PO SCH (08:46)
[2018-01-27] MEDS: ENOXAPARIN 40 MG/0.4 ML SYRINGE SQ SCH (08:46)
[2018-01-27] MEDS: ASPIRIN 81 MG TAB.CHEW CHEWED SCH (08:46)
[2018-01-27] MEDS: INSULIN GLARGINE, HUMAN 1 UNIT/0.01 ML SQ SCH (08:46)
[2018-01-27] MEDS: cefTRIAXone 1 GM VIAL IV SCH (08:55)
[2018-01-27] MEDS ORDERED: POTASSIUM PHOSPHATE 40 MEQ in DEXTROSE 5% IN WATER 500 ML IV ONE (09:29)
[2018-01-27] MEDS ORDERED: NYSTATIN 500,000 UNITS/5 ML ORAL.SUSP SSW SCH (15:00)
[2018-01-27] MEDS ORDERED: ACETAMINOPHEN 500 MG TABLET PO SCH (15:00)
[2018-01-27] MEDS ORDERED: ACETAMINOPHEN 650 MG/65 ML BOTTLE IV PRN (15:14)
[2018-01-27] MEDS ORDERED: ONDANSETRON 4 MG/2 ML VIAL IV PRN (15:14)
[2018-01-27] MEDS ORDERED: DILTIAZEM 125 MG in DEXTROSE 5% IN WATER 100 ML IV PRN (15:14)
[2018-01-27] MEDS ORDERED: INSULIN LISPRO 1 UNIT/0.01 ML UNIT SQ SCH (17:00)
--- NOTE | 2018-01-27 18:39 | Internal Med Progress Note ---
Medical - PN: Subj Patient information: Note initiated : 01/27/18 at 6:35 pm Service Date, if different from initiated Date: [] Patient: Jaiden Chavarria 77 y/o M admitted on 01/23/18 for Weakness x2 Days/ Diabetic Ketoacidoses, UTI. Chief Complaint: [] Interval history: patient seen examined, is aoox3, but intermittently confused tolerating po well X ray shows worsening infiltrates? no acute events on tele xfer to tele status. Glucose levels trending up, increase ssi to medium scale Bicarb is low, noted, ag normal increase lantus to 15units AM Patient denies any acute complaints. Pertinent ROS: Denies headache, dizziness Denies chest pain, palpitations Denies cough or shortness of breath Denies abdominal pain, nausea or vomiting. - Constitutional Vitals: Vital Signs Temp Pulse Resp BP Pulse Ox 99 F 73 20 124/81 94 01/27/18 15:51 01/27/18 16:01 01/27/18 15:51 01/27/18 16:01 01/27/18 16:01 Period Temp Pulse Resp BP Sys/Aguero Pulse Ox Last 24 Hr 97.0 F-99.2 F 71-101 8-36 119-175/76-107 94-100 Intake and Output 01/27/18 01/27/18 01/27/18 05:59 13:59 21:59 Intake Total 1110 / 1110 1298 / 1298 240 / 240 Output Total 990 / 990 520 / 520 220 / 220 Balance 120 / 120 778 / 778 20 / 20 Weight 181 lb Patient Weight 01/28/18 05:59 Weight 181 lb Intake & Output: Intake & Output 01/27/18 01/27/18 01/27/18 05:59 13:59 21:59 Intake Total 1110 / 1110 1298 / 1298 240 / 240 Output Total 990 / 990 520 / 520 220 / 220 Balance 120 / 120 778 / 778 20 / 20 Weight 181 lb Intake: IV 1110 / 1110 658 / 658 Potassium Chloride 20 Meq In 1010 / 1010 558 / 558 Sodium Chloride 0.45% 1,000 ml @ 150 mls/hr IV .Q6H44M [facility] Rx# :[id number] Oral 640 / 640 240 / 240 Output: Urine Catheter Amount 990 / 990 520 / 520 220 / 220 Other: Meal Breakfast Lunch Percent of Meal Consumed 100% 100% Feeding Ability Assist with Tray Set Up Assist with Tray Set Up Urine Appearance Sediment Clear Clear Lo Catheter Sediment Clear Urine Color Bright Yellow Pale Pale Lo Catheter Bright Yellow Pale Stool Size Moderate Moderate Stool Color Brown Brown Stool Consistency Liquid Soft Loose # Bowel Movements 1 # of times incontinent of 1 1 Bowels Exam: Constitutional; Afebrile, cooperative, alert, not in distress. Eyes- No icterus, , No periorbital swelling Ears- Ext ear normal, hearing normal to conversation. Neck- Midline trachea, supple Respiratory system: Air Entry equal on both sides, No crackles or wheezing, no rhonchi. CVS- Rate rhythm irregular, S1,S2 heard, no gallop, no rub. 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 Medical - PN: Obj Da - Labs CBC & Chem 7: 01/27/18 03:43 01/27/18 03:43 Labs: Abnormal Lab Results 01/27/18 01/27/18 01/26/18 03:43 03:43 07:40 RBC 3.95 L Hgb 12.0 L Hct 35.2 L RDW 15.2 H Lymph % (Auto) 12.0 L Lymph # (Auto) 0.8 L Chloride 113 H Carbon Dioxide 15 L Glucose 139 H Calcium 7.7 L Phosphorus 1.4 L Total Protein 5.6 L Albumin 2.6 L Albumin/Globulin Ratio 0.9 L Urine Protein 30 A Urine Glucose (UA) 50 A Urine Occult Blood 0.2 A Ur Leukocyte Esterase 25 A Urine RBC 13 H Urine WBC 6 H Urine Bacteria Few A 01/26/18 01/26/18 07:07 07:07 RBC 4.02 L Hgb 12.0 L Hct 35.7 L RDW 14.8 H Lymph % (Auto) 11.6 L Lymph # (Auto) 0.8 L Chloride 111 H Carbon Dioxide 16 L Glucose 156 H Calcium 8.3 L Phosphorus 1.0 L Total Protein Albumin Albumin/Globulin Ratio Urine Protein Urine Glucose (UA) Urine Occult Blood Ur Leukocyte Esterase Urine RBC Urine WBC Urine Bacteria Meds: Medications Acetaminophen (Tylenol) 1,000 mg PO TID [facility] Aspirin (Aspirin) 81 mg CHEWED DAILY [facility] Ceftriaxone Sodium (Rocephin) 1 gm IV Q24H [facility] Clopidogrel Bisulfate (Plavix) 75 mg PO DAILY [facility] Diagnostic Test (Pha) (Accu-Chek) 1 each FS ACHS [facility] Last Admin: 01/27/18 17:22 Dose: 1 each Diltiazem HCl (Cardizem Cd) 120 mg PO DAILY [facility] Doxazosin Mesylate (Cardura) 1 mg PO HS [facility] Enoxaparin Sodium (Lovenox) 40 mg SQ BID [facility] Diltiazem HCl 125 mg/ Dextrose 125 mls @ 5 mls/hr IV Q12HP PRN; Protocol PRN Reason: Tachyarrhythmias Metronidazole (Flagyl) 500 mg in 100 mls @ 100 mls/hr IV Q8H [facility] Acetaminophen (Ofirmev) 650 mg in 65 mls @ 130 mls/hr IV Q6HP PRN PRN Reason: PAIN/FEVER > 101 Insulin Glargine (Lantus) 10 unit SQ DAILY [facility] Insulin Human Lispro (Humalog) 0 unit SQ ACHS [facility]; Protocol Last Admin: 01/27/18 17:25 Dose: 6 unit Nystatin (Nystatin) 500,000 units SSW TID [facility] Olanzapine (Zyprexa) 5 mg PO HS [facility] Ondansetron HCl (Zofran) 4 mg IV Q4-6HP PRN PRN Reason: Nausea And Vomiting Sodium Chloride (Saline Flush) 10 ml IV Q8 [facility] Medical - PN: A/P - Time Spent With Patient Total time spent is greater than 50% in coordination of care (as documented) at patient's floor/unit and/or counseling patient: - Narrative A/P Narrative: A/P DKA- Resolved Diabetes with hyperglycemia, uncontrolled glucose, -increase insulin sliding scale to medium. Increased dose of Lantus to 15 units daily. Monitor glucose. Urinary tract infection-negative microbiology, treat with Rocephin plan for 7 days of treatment. Aspiration pneumonia-chest x-ray shows slight worsening today but clinically no evidence of worsening pneumonitis. On Flagyl and Rocephin to continue. Aggressive pulmonary toilet. Sepsis- Resolved Acute on chronic renal failure- resolved CAD/AFib- Rate controlled, no cp, contionue diltazem. DVT enoxaparin Full code Puree diet OT/PT/ST eval to continue Xfer to tele status. Medical - PN: Qual - Stroke Symptom Onset Unknown: No - VTE Deep Vein Thrombosis/Pulmonary Embolism Present on Admission: No
[2018-01-27] MEDS: NYSTATIN 500,000 UNITS/5 ML ORAL.SUSP SSW SCH (20:20)
[2018-01-27] MEDS: ACETAMINOPHEN 500 MG TABLET PO SCH (20:21)
[2018-01-27] MEDS ORDERED: ENOXAPARIN 40 MG/0.4 ML SYRINGE SQ SCH (21:00)
[2018-01-27] MEDS ORDERED: OLANZapine 5 MG TABLET PO SCH (21:00)
[2018-01-27] MEDS ORDERED: DOXAZOSIN 1 MG TABLET PO SCH (21:00)
[2018-01-28] MEDS: 0.9 % SODIUM CHLORIDE 10 ML SYRINGE IV SCH ×5 (05:56→22:10)
[2018-01-28] MEDS: metroNIDAZOLE 500 MG/100 ML BAG IV SCH ×3 (05:57→22:02)
[2018-01-28 06:22] LABS: Basophils # (Auto) 0 K/mcL (0.0-0.3); Basophils % (Auto) 0.1 % (0.0-2.0); Eosinophils # (Auto) 0.4 K/mcL (0.0-0.7); Eosinophils % (Auto) 5.9 % (0.0-7.0); Granulocytes % (Auto) 75.9 % (38.0-78.0); Lymphocytes # (Auto) 0.7 K/mcL (1.5-4.8); Mean Cell Volume 89.6 fL (80.0-100.0); Mean Corpuscular HGB Conc 33.4 g/dL (31.0-36.0); Monocytes # (Auto) 0.7 K/mcL (0.1-0.9); Monocytes % (Auto) 9.1 % (1.0-12.0); Platelet Count 266 K/mcL (140-440); RBC 3.86 M/mcL (4.50-5.90); Red Cell Distribution Width 15.6 % (11.5-14.5)
[2018-01-28 06:55] LABS: ALT/SGPT 16 U/l (0-40); Albumin 2.2 gm/dL (3.2-5.2); Albumin/Globulin Ratio 0.7 (1.0-2.3); Alkaline Phosphatase 74 U/L (39-117); Bilirubin,Direct < 0.2 mg/dL (0.0-0.3); Blood Urea Nitrogen 10 mg/dl (8-23); Gamma Glutamyl Transpeptidase 17 U/L (8-61); Uric Acid 2.8 mg/dL (2.5-8.0)
[2018-01-28] MEDS: INSULIN LISPRO 1 UNIT/0.01 ML UNIT SQ SCH ×4 (08:03→22:01)
[2018-01-28] MEDS: ACETAMINOPHEN 500 MG TABLET PO SCH ×3 (08:30→21:57)
[2018-01-28] MEDS: NYSTATIN 500,000 UNITS/5 ML ORAL.SUSP SSW SCH ×3 (08:31→21:57)
[2018-01-28] MEDS ORDERED: ENOXAPARIN 40 MG/0.4 ML SYRINGE SQ SCH (09:00)
[2018-01-28] MEDS ORDERED: ASPIRIN 81 MG TAB.CHEW CHEWED SCH (09:00)
[2018-01-28] MEDS ORDERED: INSULIN GLARGINE, HUMAN 1 UNIT/0.01 ML SQ SCH ×2 (09:00)
[2018-01-28] MEDS ORDERED: CLOPIDOGREL 75 MG TABLET PO SCH (09:00)
[2018-01-28] MEDS ORDERED: DILTIAZEM 120 MG CAP.XL.24H PO SCH (09:00)
[2018-01-28] MEDS ORDERED: cefTRIAXone 1 GM VIAL IV SCH (09:00)
[2018-01-28] MEDS ORDERED: ONDANSETRON 4 MG/2 ML VIAL IV PRN (12:59)
[2018-01-28] MEDS ORDERED: DILTIAZEM 125 MG in DEXTROSE 5% IN WATER 100 ML IV PRN (12:59)
[2018-01-28] MEDS ORDERED: ACETAMINOPHEN 650 MG/65 ML BOTTLE IV PRN (12:59)
--- NOTE | 2018-01-28 13:52 | Internal Med Progress Note ---
Medical - PN: Subj Patient information: Note initiated : 01/28/18 at 1:42 pm Service Date, if different from initiated Date: [] Patient: Jaiden Chavarria 77 y/o M admitted on 01/23/18 for Weakness x2 Days/ Diabetic Ketoacidoses, UTI. Chief Complaint: [] Interval history: patient seen examined, is aoox3, but intermittently confused tolerating po well X ray shows worsening infiltrates? no acute events on tele xfer to tele status. Glucose levels trending up, increase ssi to medium scale Bicarb is low, noted, ag normal increase lantus to 15units AM Patient denies any acute complaints. 01/28 Patient seen examined sitting comfortably in bed melo in place, good urine output, pt tolerating po well, not happy with his dietary restriction, thicjened fluids. labs stable glucose shows post prandial hyperglycemia, increase ssi to high scale, continue lantus 15 bid xfer to med surg status bicarb improving Pertinent ROS: Denies headache, dizziness Denies chest pain, palpitations Denies cough or shortness of breath Denies abdominal pain, nausea or vomiting. - Constitutional Vitals: Vital Signs Temp Pulse Resp BP Pulse Ox 99.2 F H 100 H 18 107/75 97 01/28/18 12:21 01/27/18 19:02 01/28/18 12:21 01/28/18 12:21 01/28/18 12:21 Period Temp Pulse Resp BP Sys/Aguero Pulse Ox Last 24 Hr 97.3 F-99.2 F 73-100 18-24 107-150/75-88 94-100 Intake and Output 01/27/18 01/28/18 01/28/18 21:59 05:59 13:59 Intake Total 390 / 390 100 / 100 100 / 100 Output Total 500 / 500 265 / 265 Balance -110 / -110 -165 / -165 100 / 100 Weight 180 lb 9.6 oz Intake & Output: Intake & Output 01/27/18 01/28/18 01/28/18 21:59 05:59 13:59 Intake Total 390 / 390 100 / 100 100 / 100 Output Total 500 / 500 265 / 265 Balance -110 / -110 -165 / -165 100 / 100 Weight 180 lb 9.6 oz Intake: IV 100 / 100 100 / 100 Oral 390 / 390 Output: Urine Catheter Amount 500 / 500 265 / 265 Other: Meal Lunch Percent of Meal Consumed 100% Feeding Ability Assist with Tray Set Up Urine Appearance Sediment Clear Melo Catheter Sediment Urine Color Bright Yellow Bright Yellow Melo Catheter Bright Yellow Exam: Constitutional; Afebrile, cooperative, alert, not in distress. Eyes- No icterus, , No periorbital swelling Ears- Ext ear normal, hearing normal to conversation. Neck- Midline trachea, supple Respiratory system: Air Entry equal on both sides, No crackles or wheezing, no rhonchi. CVS- Rate rhythm irregular, S1,S2 heard, no gallop, no rub. 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 Medical - PN: Obj Da - Labs CBC & Chem 7: 01/28/18 03:35 01/28/18 03:35 Labs: Abnormal Lab Results 01/28/18 01/28/18 01/27/18 03:35 03:35 03:43 RBC 3.86 L Hgb 11.6 L Hct 34.6 L RDW 15.6 H Lymph % (Auto) 9.0 L Lymph # (Auto) 0.7 L Chloride 112 H 113 H Carbon Dioxide 18 L 15 L Glucose 143 H 139 H Calcium 7.1 L 7.7 L Phosphorus 2.4 L 1.4 L Lactate Dehydrogenase 254 H Total Protein 5.3 L 5.6 L Albumin 2.2 L 2.6 L Albumin/Globulin Ratio 0.7 L 0.9 L Urine Protein Urine Glucose (UA) Urine Occult Blood Ur Leukocyte Esterase Urine RBC Urine WBC Urine Bacteria 01/27/18 01/26/18 01/26/18 03:43 07:40 07:07 RBC 3.95 L Hgb 12.0 L Hct 35.2 L RDW 15.2 H Lymph % (Auto) 12.0 L Lymph # (Auto) 0.8 L Chloride 111 H Carbon Dioxide 16 L Glucose 156 H Calcium 8.3 L Phosphorus 1.0 L Lactate Dehydrogenase Total Protein Albumin Albumin/Globulin Ratio Urine Protein 30 A Urine Glucose (UA) 50 A Urine Occult Blood 0.2 A Ur Leukocyte Esterase 25 A Urine RBC 13 H Urine WBC 6 H Urine Bacteria Few A 01/26/18 07:07 RBC 4.02 L Hgb 12.0 L Hct 35.7 L RDW 14.8 H Lymph % (Auto) 11.6 L Lymph # (Auto) 0.8 L Chloride Carbon Dioxide Glucose Calcium Phosphorus Lactate Dehydrogenase Total Protein Albumin Albumin/Globulin Ratio Urine Protein Urine Glucose (UA) Urine Occult Blood Ur Leukocyte Esterase Urine RBC Urine WBC Urine Bacteria Meds: Medications Acetaminophen (Tylenol) 1,000 mg PO TID [facility] Aspirin (Aspirin) 81 mg CHEWED DAILY [facility] Ceftriaxone Sodium (Rocephin) 1 gm IV Q24H [facility] Clopidogrel Bisulfate (Plavix) 75 mg PO DAILY [facility] Diagnostic Test (Pha) (Accu-Chek) 1 each FS ACHS [facility] Diltiazem HCl (Cardizem Cd) 120 mg PO DAILY [facility] Doxazosin Mesylate (Cardura) 1 mg PO HS [facility] Enoxaparin Sodium (Lovenox) 40 mg SQ DAILY [facility] Diltiazem HCl 125 mg/ Dextrose 125 mls @ 5 mls/hr IV Q12HP PRN; Protocol PRN Reason: Tachyarrhythmias Metronidazole (Flagyl) 500 mg in 100 mls @ 100 mls/hr IV Q8H [facility] Acetaminophen (Ofirmev) 650 mg in 65 mls @ 130 mls/hr IV Q6HP PRN PRN Reason: PAIN/FEVER > 101 Insulin Glargine (Lantus) 15 unit SQ DAILY [facility] Insulin Human Lispro (Humalog) 0 unit SQ ACHS [facility]; Protocol Nystatin (Nystatin) 500,000 units SSW TID [facility] Olanzapine (Zyprexa) 5 mg PO HS [facility] Ondansetron HCl (Zofran) 4 mg IV Q4-6HP PRN PRN Reason: Nausea And Vomiting Sodium Chloride (Saline Flush) 10 ml IV Q8 [facility] Medical - PN: A/P - Time Spent With Patient Total time spent is greater than 50% in coordination of care (as documented) at patient's floor/unit and/or counseling patient: - Narrative A/P Narrative: A/P DKA- Resolved Diabetes with hyperglycemia, uncontrolled glucose, -increase insulin sliding scale to high, and continue Lantus 15 units daily. Monitor glucose. Urinary tract infection-negative microbiology, treat with Rocephin plan for 7 days of treatment. Aspiration pneumonia-chest x-ray shows slight worsening today but clinically no evidence of worsening pneumonitis. On Flagyl and Rocephin to continue. Aggressive pulmonary toilet. Sepsis- Resolved Acute on chronic renal failure- resolved CAD/AFib- Rate controlled, no cp, contionue diltazem. DVT enoxaparin Full code Puree diet OT/PT/ST eval to continue Xfer to med surg. Medical - PN: Qual - Stroke Symptom Onset Unknown: No - VTE Deep Vein Thrombosis/Pulmonary Embolism Present on Admission: No
[2018-01-28] MEDS ORDERED: INSULIN LISPRO 1 UNIT/0.01 ML UNIT SQ SCH (17:00)
[2018-01-28] MEDS: OLANZapine 5 MG TABLET PO SCH (21:57)
[2018-01-28] MEDS: DOXAZOSIN 1 MG TABLET PO SCH (22:02)
[2018-01-29] MEDS: metroNIDAZOLE 500 MG/100 ML BAG IV SCH ×3 (05:48→21:48)
[2018-01-29] MEDS: 0.9 % SODIUM CHLORIDE 10 ML SYRINGE IV SCH ×3 (05:49→21:48)
[2018-01-29 06:38] LABS: Basophils # (Auto) 0 K/mcL (0.0-0.3); Basophils % (Auto) 0.3 % (0.0-2.0); Eosinophils # (Auto) 0.3 K/mcL (0.0-0.7); Eosinophils % (Auto) 3.7 % (0.0-7.0); Granulocytes % (Auto) 76.2 % (38.0-78.0); Lymphocytes # (Auto) 0.8 K/mcL (1.5-4.8); Lymphocytes % (Auto) 9.8 % (15.5-49.0); Mean Cell Volume 89.9 fL (80.0-100.0); Mean Corpuscular HGB Conc 32.9 g/dL (31.0-36.0); Mean Corpuscular Hemoglobin 29.6 pg (26.0-34.0); Monocytes # (Auto) 0.8 K/mcL (0.1-0.9); Platelet Count 291 K/mcL (140-440); RBC 4.02 M/mcL (4.50-5.90)
[2018-01-29 07:18] LABS: ALT/SGPT 16 U/l (0-40); Albumin 2.3 gm/dL (3.2-5.2); Albumin/Globulin Ratio 0.7 (1.0-2.3); Alkaline Phosphatase 69 U/L (39-117); Bilirubin,Direct < 0.2 mg/dL (0.0-0.3); Blood Urea Nitrogen 10 mg/dl (8-23); Gamma Glutamyl Transpeptidase 23 U/L (8-61)
[2018-01-29] MEDS: DILTIAZEM 120 MG CAP.XL.24H PO SCH (08:51)
[2018-01-29] MEDS: CLOPIDOGREL 75 MG TABLET PO SCH (08:52)
[2018-01-29] MEDS: NYSTATIN 500,000 UNITS/5 ML ORAL.SUSP SSW SCH ×3 (08:52→20:29)
[2018-01-29] MEDS: ASPIRIN 81 MG TAB.CHEW CHEWED SCH (08:52)
[2018-01-29] MEDS: ACETAMINOPHEN 500 MG TABLET PO SCH ×3 (08:52→20:30)
[2018-01-29] MEDS: ENOXAPARIN 40 MG/0.4 ML SYRINGE SQ SCH (08:52)
[2018-01-29] MEDS: INSULIN LISPRO 1 UNIT/0.01 ML UNIT SQ SCH ×4 (08:53→20:42)
[2018-01-29] MEDS ORDERED: INSULIN GLARGINE, HUMAN 1 UNIT/0.01 ML SQ SCH (09:00)
[2018-01-29] MEDS: cefTRIAXone 1 GM VIAL IV SCH (11:42)
--- NOTE | 2018-01-29 13:08 | Internal Med Progress Note ---
Medical - PN: Subj Patient information: Note initiated : 01/29/18 at 1:06 pm Service Date, if different from initiated Date: [] Patient: Jaiden Chavarria 77 y/o M admitted on 01/23/18 for Weakness x2 Days/ Diabetic Ketoacidoses, UTI. Chief Complaint: [] Interval history: patient seen examined, is aoox3, but intermittently confused tolerating po well X ray shows worsening infiltrates? no acute events on tele xfer to tele status. Glucose levels trending up, increase ssi to medium scale Bicarb is low, noted, ag normal increase lantus to 15units AM Patient denies any acute complaints. 01/28 Patient seen examined sitting comfortably in bed melo in place, good urine output, pt tolerating po well, not happy with his dietary restriction, thicjened fluids. labs stable glucose shows post prandial hyperglycemia, increase ssi to high scale, continue lantus 15 bid xfer to med surg status bicarb improving 01/29 Patient seen and examined, sitting comfortably in bed, labs stable. Glucose values stable Still has postprandial hyperglycemia but much better than before. Melo in place Patient tolerating p.o. diet well Mental status much better still weak and will need rehab placement. Pertinent ROS: Denies headache, dizziness Denies chest pain, palpitations Denies cough or shortness of breath Denies abdominal pain, nausea or vomiting. - Constitutional Vitals: Vital Signs Temp Pulse Resp BP Pulse Ox 98 F 75 20 148/81 95 01/29/18 07:49 01/28/18 19:20 01/29/18 07:49 01/29/18 07:49 01/29/18 07:49 Period Temp Pulse Resp BP Sys/Aguero Pulse Ox Last 24 Hr 98 F-99.1 F 75-75 16-20 148-164/74-93 93-97 Intake and Output 01/28/18 01/29/18 01/29/18 21:59 05:59 13:59 Intake Total 640 / 640 100 / 100 430 / 430 Output Total 550 / 550 550 / 550 Balance 90 / 90 -450 / -450 430 / 430 Weight 176 lb 8 oz Intake & Output: Intake & Output 01/28/18 01/29/18 01/29/18 21:59 05:59 13:59 Intake Total 640 / 640 100 / 100 430 / 430 Output Total 550 / 550 550 / 550 Balance 90 / 90 -450 / -450 430 / 430 Weight 176 lb 8 oz Intake: IV 100 / 100 100 / 100 100 / 100 Oral 540 / 540 330 / 330 Output: Urine Catheter Amount 550 / 550 550 / 550 Other: Meal Dinner Lunch Percent of Meal Consumed 100% 100% Feeding Ability Independent Urine Appearance Clear Melo Catheter Clear Clear Urine Color Dark Yellow Melo Catheter Dark Yellow Light Audra Urine Odor Melo Catheter Normal Stool Size Moderate Copious Moderate Stool Color Brown Brown Brown Stool Consistency Loose Loose Loose # Bowel Movements 1 # of times incontinent of 1 1 Bowels Exam: Constitutional; Afebrile, cooperative, alert, not in distress. Eyes- No icterus, , No periorbital swelling Ears- Ext ear normal, hearing normal to conversation. Neck- Midline trachea, supple Respiratory system: Air Entry equal on both sides, No crackles or wheezing, no rhonchi. CVS- Rate rhythm regular, S1,S2 heard, no gallop, no rub. 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 Medical - PN: Obj Da - Labs CBC & Chem 7: 01/29/18 04:20 01/29/18 04:20 Labs: Abnormal Lab Results 01/29/18 01/29/18 01/28/18 04:20 04:20 03:35 RBC 4.02 L Hgb 11.9 L Hct 36.2 L RDW 16.0 H Lymph % (Auto) 9.8 L Lymph # (Auto) 0.8 L Sodium 147 H Chloride 115 H 112 H Carbon Dioxide 20 L 18 L Glucose 125 H 143 H Calcium 7.3 L 7.1 L Phosphorus 1.9 L 2.4 L Lactate Dehydrogenase 295 H 254 H Total Protein 5.5 L 5.3 L Albumin 2.3 L 2.2 L Albumin/Globulin Ratio 0.7 L 0.7 L 01/28/18 01/27/18 01/27/18 03:35 03:43 03:43 RBC 3.86 L 3.95 L Hgb 11.6 L 12.0 L Hct 34.6 L 35.2 L RDW 15.6 H 15.2 H Lymph % (Auto) 9.0 L 12.0 L Lymph # (Auto) 0.7 L 0.8 L Sodium Chloride 113 H Carbon Dioxide 15 L Glucose 139 H Calcium 7.7 L Phosphorus 1.4 L Lactate Dehydrogenase Total Protein 5.6 L Albumin 2.6 L Albumin/Globulin Ratio 0.9 L Meds: Medications Acetaminophen (Tylenol) 1,[address] [facility] Last Admin: 01/29/18 08:52 Dose: 1,000 mg Aspirin (Aspirin) [address] [facility] Last Admin: 01/29/18 08:52 Dose: 81 mg Ceftriaxone Sodium (Rocephin) [address] [facility] Last Admin: 01/29/18 11:42 Dose: 1 gm Clopidogrel Bisulfate (Plavix) [address] [facility] Last Admin: 01/29/18 08:52 Dose: 75 mg Diagnostic Test (Pha) (Accu-Chek) 1 each FS [facility] Last Admin: 01/29/18 11:43 Dose: 1 each Diltiazem HCl (Cardizem Cd) [address] [facility] Last Admin: 01/29/18 08:51 Dose: 120 mg Doxazosin Mesylate (Cardura) [address] [facility] Last Admin: 01/28/18 22:02 Dose: 1 mg Enoxaparin Sodium (Lovenox) [address] [facility] Last Admin: 01/29/18 08:52 Dose: 40 mg Metronidazole (Flagyl) 500 mg in 100 mls @ 100 mls/hr IV Q8H [facility] Last Infusion: 01/29/18 06:48 Dose: Infused Acetaminophen (Ofirmev) 650 mg in 65 mls @ 130 mls/hr IV Q6HP PRN PRN Reason: PAIN/FEVER > 101 Insulin Glargine (Lantus) [address] [facility] Insulin Human Lispro (Humalog) [address] [facility]; Protocol Last Admin: 01/29/18 11:43 Dose: 12 unit Nystatin (Nystatin) 500,[address] [facility] Last Admin: 01/29/18 08:52 Dose: 500,000 units Olanzapine (Zyprexa) [address] [facility] Last Admin: 01/28/18 21:57 Dose: 5 mg Ondansetron HCl (Zofran) 4 mg IV Q4-6HP PRN PRN Reason: Nausea And Vomiting Sodium Chloride (Saline Flush) 10 ml IV Q8 [facility] Last Admin: 01/29/18 05:49 Dose: 10 ml Medical - PN: A/P - Time Spent With Patient Total time spent is greater than 50% in coordination of care (as documented) at patient's floor/unit and/or counseling patient: - Narrative A/P Narrative: A/P DKA- Resolved Diabetes with hyperglycemia, uncontrolled glucose, -increase insulin sliding scale to high, and continue Lantus 20 units daily from tomorrow. Monitor glucose. Urinary tract infection-negative microbiology, treat with Rocephin plan for 7 days of treatment. last dose tomorrow Aspiration pneumonia-chest x-ray shows slight worsening today but clinically no evidence of worsening pneumonitis. On Flagyl and Rocephin to continue. Aggressive pulmonary toilet. not on any oxygen. Sepsis- Resolved Acute on chronic renal failure- resolved CAD/AFib- Rate controlled, no cp, contionue diltazem. DVT enoxaparin Full code Puree diet OT/PT/ST eval to continue Xfer to med surg. anticipate d/c to snf in AM Pt unhappy with thickened liquids, will see if we can advance diet. Medical - PN: Qual - Stroke Symptom Onset Unknown: No - VTE Deep Vein Thrombosis/Pulmonary Embolism Present on Admission: No
[2018-01-29] MEDS: OLANZapine 5 MG TABLET PO SCH (20:30)
[2018-01-29] MEDS: DOXAZOSIN 1 MG TABLET PO SCH (20:30)
[2018-01-30] MEDS: metroNIDAZOLE 500 MG/100 ML BAG IV SCH (05:23)
[2018-01-30] MEDS: 0.9 % SODIUM CHLORIDE 10 ML SYRINGE IV SCH (06:20)
[2018-01-30] MEDS: INSULIN LISPRO 1 UNIT/0.01 ML UNIT SQ SCH ×2 (07:57→12:04)
[2018-01-30] MEDS ORDERED: INSULIN GLARGINE, HUMAN 1 UNIT/0.01 ML SQ SCH (09:00)
[2018-01-30] MEDS: CLOPIDOGREL 75 MG TABLET PO SCH (09:54)
[2018-01-30] MEDS: ASPIRIN 81 MG TAB.CHEW CHEWED SCH (09:55)
[2018-01-30] MEDS: ACETAMINOPHEN 500 MG TABLET PO SCH (09:55)
[2018-01-30] MEDS: DILTIAZEM 120 MG CAP.XL.24H PO SCH (09:55)
[2018-01-30] MEDS: NYSTATIN 500,000 UNITS/5 ML ORAL.SUSP SSW SCH (09:57)
[2018-01-30] MEDS: ENOXAPARIN 40 MG/0.4 ML SYRINGE SQ SCH (09:57)
[2018-01-30] MEDS: cefTRIAXone 1 GM VIAL IV SCH (10:45)
--- NOTE | 2018-01-30 13:52 | Discharge Summary ---
Medical - DS: Prov Patient information: Note initiated : 01/30/18 at 1:50 pm Service Date, if different from initiated Date: [] Patient: Jaiden Chavarria a 77 y/o M admitted on 01/23/18 for Weakness x2 Days/ Diabetic Ketoacidoses, UTI. Chief Complaint: [] Date of admission: 01/23/18 15:57 Discharge date: 01/30/18 Primary care physician: Tray Villavicencio Consults: 01/23/18 Consult to Physician [CONS] Stat Comment: Consulting Provider: Raoul Bermudez Reason For Exam: Physician to Consult Discharging clinician: Jade Welch Medical - DS: Meds - Discharge Medications Active and Home Medications: Home Medications calcium carbonate 600 mg calcium (1,500 mg) tablet 600 mg PO QDAY tab 07/13/17 [History Confirmed 01/17/18 Last Taken Unknown] clopidogrel 75 mg tablet 75 mg PO QDAY #90 tab 12/27/17 [Rx Confirmed 01/23/18 Last Taken Unknown] Ezetimibe [Zetia] 10 mg PO HS 01/24/18 [History Confirmed 01/24/18 Last Taken Unknown] Oxybutynin Chloride [Ditropan Xl] 10 mg PO DAILY 01/24/18 [History Confirmed 06/12 Last Taken Unknown] Medical - DS: Hosp Hospital course: Mr. Chavarria is a 77 year old M with borderline diabetes in the past has had polyuria and polydipsia for 3 weeks. Got to where he is [place] all the time and drinking fluids constantly. got weaker and weaker an came to hospital. has hx of stage 3 met prostate cancer with PSA over 700. now down to 0.78 after Eligard (leuprolide) injection. States bone pain markedly diminished. Had cancer in hip and kidney and bladder. not good cancer historian but states was 4 years ordeal so far. Patient was admitted to the hospital with diagnosis of DKA and UTI DKA- Treated per protocol, IVF< INsulin drip, switched to lantus and humalog, which helped control his glucose. The patient is on 20 units of lantus and high dose of ssi insulin at this time. He has not tried oral medications, and will likely need to be transitioned to lantus and oral medications as outpatient. The patient had a presentation of DKA, with elevated beta hydroxybutyrate, glucse and high anion gap. Not sure if chemotherapy agents precipated type 1 type picture? will benefit from further workup as outpatient. MARYAN 65 antibiody / islet cell antibody to see if has any antibodies to insulin. Patient overall does not seem very compliant and hence not sure how much compliance he will show with a lantus/ humalog regime.. UTI- patient has ca prostate at baseline ,is self cath, high risk of infection, urine was suggestive of UTI, but cultures were negative, treated with rocephin x 7 days Aspiration pneumonitis- treated with rocephin and flagyl, due to dysphagia. Dysphagia- Poor swallowing, during the hospital stay, evaluated by speech therapy, intially on nectar thick liquids, but as he improved, he is being transitioned to level 3 diet with thin liquids. Will benefit from ongoing ST at the the rehab center Ca prostate- missed chemo scheduled, advised to call oncologist and get scheduled wallace Patient is quite weak from being hospitalized, and unable to be discharged safely back home. Will be discharged to SNF for rehab. Discharge diagnosis: UTI, DKA - Time Spent with Patient Total time spent providing and/or coordinating discharge services: Greater than 30 minutes Medical - DS: Exam - Constitutional Vitals: Vital Signs Temp Pulse Pulse Resp BP BP Pulse Ox 01/30/18 11:53 99.0 F 84 20 120/78 95 01/30/18 11:40 98.6 F 18 149/92 94 01/30/18 07:29 97.6 F 72 18 128/70 92 01/30/18 07:08 98.2 F 18 123/75 93 01/30/18 04:00 98.2 F 84 22 154/93 94 01/29/18 23:44 97.9 F 72 24 H 145/81 95 01/29/18 20:00 97.8 F 71 24 H 133/74 96 01/29/18 16:00 98.6 F 20 144/84 94 Intake and Output 01/29/18 01/30/18 01/30/18 21:59 05:59 13:59 Intake Total 520 / 520 280 / 280 100 / 100 Output Total 600 / 600 525 / 525 Balance -80 / -80 -245 / -245 100 / 100 Intake: IV 100 / 100 100 / 100 100 / 100 Oral 420 / 420 180 / 180 Output: Urine Catheter Amount 600 / 600 525 / 525 Other: Meal sherbert Percent of Meal Consumed 100% Feeding Ability Independent Urine Appearance Clear Clear Urine Color Bright Yellow Light Audra Lo Catheter Bright Yellow Urine Odor Normal Normal Stool Size Moderate Stool Color Brown Stool Consistency Loose # of times incontinent of 1 Bowels Weight 173 lb 8 oz Additional comments: Constitutional; Afebrile, cooperative, alert, not in distress. Eyes- No icterus, , No periorbital swelling Ears- Ext ear normal, hearing normal to conversation. Neck- Midline trachea, supple Respiratory system: Air Entry equal on both sides, No crackles or wheezing, no rhonchi. CVS- Rate rhythm regular, S1,S2 heard, no gallop, no rub. 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 Medical - DS: Data Labs on day of discharge: Preliminary micro results at discharge 01/26/18 07:07 Blood Culture - Preliminary Blood 01/26/18 07:13 Blood Culture - Preliminary Blood Medical - DS: A/P - Patient/Caregiver Discharge Instructions Diet: Dysphagia Advanced (Thin liquid) Additional Instructions: Straight cath as needed for urination. Patient does this at home. Follow up with PCP in [address] /OT/PT at rehab center Go to the ER if chest pain, shortness of breath, fever or any other acute symptoms. - Follow up Plan Follow up with: Tray Villavicencio DO [Primary Care Provider] - Disposition: [facility] SN[facility] Prognosis: Fair Rehab Potential: Fair I certify that the patient requires SNF services: Yes Medical - DS: Qual - VTE Deep Vein Thrombosis/Pulmonary Embolism Present on Admission: No
== END 2018-01-30 16:08 | DRG 637 ==
LOC: ED 09:33 → ICU 15:57 → MEDSUR 01-28 11:35
PROVIDERS: ADMIT Internal Medicine; ATTEND Internal Medicine
CPT/HCPCS: 80047; 82010; 84145; 85014; 97161; 97167; 99231; 99238; A6213; J0131; J0696; J1630; J1650; J1815; J1817; J2405; J3480; J7030; J7042; J7050; J7060

== ENCOUNTER 2019-08-03 15:09 | Inpatient (IN) ==
--- NOTE | 2019-08-03 15:49 | Emergency Department Note ---
General Adult HPI - General Chief complaint: Cold/Flu Symptoms Stated complaint: Cold symptoms Time Seen by Provider: 08/03/19 15:10 Source: patient Mode of arrival: ambulatory Limitations: no limitations - History of Present Illness HPI Narrative: 77-year-old male patient was referred up to the emergency department from the minor care with chief complaint of worsening productive cough, hypoxia, shortness of breath. Patient tells me has been ill over the last month with the prior mentioned symptoms. He has been producing some green-colored sputum t hroughout that time. A concern to him today when he coughed and produced what appeared to be blood in his sputum as well. This caused him to come to the minor care. He denies any overt fevers at home. He was febrile in triage at 100.8. He denies sweats or chills. He denies history of smoking. He admits to worsening dyspnea on exertion. He denies retrosternal chest pain or palpitations. He denies abdominal pain, nausea, vomiting, or diarrhea. He denies focal weakness. He denies dysuria or hematuria. He denies any possibility of exposure to the novel coronavirus. He denies other sick contacts. A review of his active problems shows the following: Prostate cancer, seizures, UTI, depression, gastroenteritis, DKA, aspiration pneumonitis, CVA, type 2 diabetes, palpitations, atrial fibrillation, coronary artery disease, osteoporosis, vertebral compression fractures, hypertension. - Related Data Home Medications Medication Instructions Recorded Confirmed calcium carbonate 600 mg calcium 600 mg PO QDAY tab 02/22/18 08/03/19 (1,500 mg) tablet bicalutamide 50 mg tablet 50 mg PO QDAY 07/21/18 08/03/19 losartan 50 mg tablet 50 mg PO QDAY 04/24/19 08/03/19 Previous Rx's Medication Instructions Recorded insulin aspart U-100 100 unit/mL 20 unit SUB-Q TID #45 ml 09/13/18 (3 mL) subcutaneous pen insulin detemir U-100 100 unit/mL 35 unit SUB-Q QHS #33 ml 12/28/18 (3 mL) subcutaneous pen blood sugar diagnostic See Dose Instructions .ROUTE 01/08/19 .MEDSUPPLY #200 each pen needle, diabetic 32 gauge x See Rx Instructions .ROUTE 02/19/19" .MEDSUPPLY #200 each clopidogrel 75 mg tablet 75 mg PO QDAY #90 tab 03/20/19 diltiazem HCl 120 mg 120 mg PO DAILY #90 cap 03/20/19 capsule,extended release 24 hr metformin 500 mg tablet 500 mg PO BID #180 tab 06/07/19 ezetimibe 10 mg tablet 10 mg PO HS #90 tab 06/18/19 Allergies Allergy/AdvReac Type Severity Reaction Status Date / Time GWENDOLYN Inhibitors Allergy Severe Other Verified 08/03/19 15:09 Beta-Blockers Allergy Severe Other Verified 08/03/19 15:09 (Beta-Adrenergic Bloc Mnzgilf-Jjf-Fqp Reductase AdvReac Severe very bad Verified 08/03/19 15:09 Inhibitor nausea, muscle pains Tetracyclines AdvReac Mild Photosensit Verified 08/03/19 15:09 ivity Review of Systems All systems ED: reviewed and negative except as stated. Past Medical History - Past Medical History Medical history: Reports: atrial fibrillation, hypertension, myocardial infarction, other (prostate cancer. 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 Right hand chronic tremor. Chronic anticoagulation (clopidogrel).) Surgical history ED: Reports: appendectomy, hip replacement, other (Nephrostomy) - Social History smoking status: Never smoker Alcohol use: Reports: Occasionally Drug use: Reports: none Physical Exam Limitations: no limitations General appearance: alert, in distress, other (Well-developed, well-nourished, 77-year-old male patient laying semi-recumbent on the emergency room gurney in no acute respiratory distress. He is able to speak in full complete sentences. However, he is coughing extensively during evaluation exam.) Head: atraumatic, normocephalic Eye: Present: normal appearance, PERRL, EOMI. Absent: scleral icterus, conj unctival injection ENT: Present: normal oropharynx, mucous membranes moist Neck: Present: trachea midline. Absent: lymphadenopathy, thyromegaly Chest: Present: symmetric chest wall rise Respiratory: Present: prolonged expiratory phase, decreased breath sounds, other (Coarse rhonchi heard throughout the chest on exam.). Absent: normal lung sounds bilaterally, respiratory distress, rales/crackles, wheezes, stridor, accessory muscle use Cardiovascular: Present: regular rate, normal rhythm. Absent: systolic murmur, diastolic murmur Abdominal: Present: soft, normal bowel sounds. Absent: distention, tenderness, guarding, rebound, rigidity, organomegaly, mass Extremities: Present: normal inspection, full ROM, normal capillary refill. Absent: pedal edema Neurological: Present: alert, oriented X3 Psychiatric: Present: normal affect, normal mood Skin: Present: warm, dry Course Course Narrative: Patient brought into the emergency department and a history and physical exam was performed. Saline lock was established and laboratory studies were drawn. Portable chest x-ray was ordered and reviewed. Nasal swab for influenza a/B was ordered and reviewed. Patient was given benzonatate 200 mg p.o. Chest x-ray showed a considerable pneumonia developing to the right lower chest. A review of his laboratory studies show the following: CBC WBC 13.1, RBC 4.19, hemoglobin 12.2, hematocrit 37.0, platelets 425, granulocyte percent 86.7, granulocyte #11.4. CMP sodium 132, carbon dioxide 16, anion gap 19, BUN 48, creatinine 1.8, GFR 35, glucose 417, calcium 8.1, AST 40, ALT 81, albumin 2.2, globulin 4.7, all others normal limits. Procalcitonin 0.58. Lactic acid 2.8. After reviewing all the data patient was given additional fluid bolus. He was given 10 units of insulin IVP. He was to started on dual antibiotic therapy with 1 g of Rocephin IVP and 500 mg of azithromycin p.o. Afterwards, I reached out to the hospitalist about admission for the developing pneumonia. I spoke to the hospitalist (Dr. Knapp) I discussed the case with him. At this time Dr. Oswald recommended increasing Rocephin to 2 g. He also recommended testing for the novel CoVid-19. Patient was given additional 1 g of Rocephin as requested. He was also tested for CoVid-19. Patient's repeat blood sugar was 359. With this in mind, he was given an additional 10 units of regular insulin IVP. At this time Dr. Knapp has accepted to admit the patient into the ICU. All further treatment decisions, modalities, and ultimate patient disposition be carried out by Dr. Knapp. Vital Signs Temperature 100.8 F H 08/03/19 15:10 Pulse Rate 89 08/03/19 15:10 Respiratory Rate 20 04/10/20 15:10 Blood Pressure 115/65 04/10/20 15:10 Pulse Oximetry (%) 92 08/03/19 15:10 Temperature 100.8 F H 08/03/19 15:10 Pulse Rate 68 08/03/19 20:51 Respiratory Rate 22 08/03/19 20:51 Blood Pressure 126/78 08/03/19 20:51 Pulse Oximetry (%) 92 08/03/19 20:51 Medical Decision Making - Lab Data Lab results reviewed: Yes I reviewed the patient's lab results. Result diagrams: 08/03/19 15:45 08/03/19 15:45 Lab Results 08/03/19 08/03/19 08/03/19 Range/Units 15:45 15:45 15:45 WBC 13.1 H (4.50-11.00) K/mcL RBC 4.19 L (4.63-6.08) M/mcL Hgb 12.2 L (13.7-17.5) g/dL Hct 37.0 L (40.1-51.0) % MCV 88.3 (80.0-100.0) fL MCH 29.1 (26.0-34.0) pg MCHC 33.0 (31.0-36.0) g/dL RDW 13.9 (11.5-14.5) % Plt Count 425 (140-440) K/mcL MPV 10.0 (7.4-10.4) fL Gran % 86.7 H (38.0-78.0) % Lymph % (Auto) 6.5 L (15.5-49.0) % Clayton % (Auto) 6.5 (1.0-12.0) % Eos % (Auto) 0.1 (0.0-7.0) % Baso % (Auto) 0.2 (0.0-2.0) % Gran # 11.40 H (1.80-8.00) K/mcL Lymph # (Auto) 0.85 L (1.50-4.80) K/mcL Clayton # (Auto) 0.85 (0.10-0.90) K/mcL Eos # (Auto) 0.01 (0.00-0.70) K/mcL Baso # (Auto) 0.02 (0.00-0.30) K/mcL VBG Lactic Acid 2.8 H (0.5-2.0) mmol/L Sodium 132 L (133-145) mmol/L Potassium 4.3 (3.3-5.1) mmol/L Chloride 97 (96-108) mmol/L Carbon Dioxide 16 L (22-30) mmol/L Anion Gap 19.0 H (8-16) BUN 48 H (8-23) mg/dl Creatinine 1.8 H (0.7-1.2) mg/dl GFR Calculation 35 Glucose 417 H (70-105) mg/dL Osmolality (280-300) mOSM/kg Calcium 8.1 L (8.6-10.4) mg/dl Total Bilirubin 0.8 (0.0-1.0) mg/dL AST 40 H (0-37) U/l ALT 81 H (0-40) U/l Alkaline Phosphatase 99 (39-117) U/L Total Protein 6.9 (5.9-8.4) gm/dL Albumin 2.2 L (3.2-5.2) gm/dL Globulin 4.7 H (2.2-3.7) gm/dL Albumin/Globulin Ratio 0.5 L (1.0-2.3) Procalcitonin (<0.10) ng/mL 08/03/19 08/03/19 Range/Units 15:45 15:45 WBC (4.50-11.00) K/mcL RBC (4.63-6.08) M/mcL Hgb (13.7-17.5) g/dL Hct (40.1-51.0) % MCV (80.0-100.0) fL MCH (26.0-34.0) pg MCHC (31.0-36.0) g/dL RDW (11.5-14.5) % Plt Count (140-440) K/mcL MPV (7.4-10.4) fL Gran % (38.0-78.0) % Lymph % (Auto) (15.5-49.0) % Clayton % (Auto) (1.0-12.0) % Eos % (Auto) (0.0-7.0) % Baso % (Auto) (0.0-2.0) % Gran # (1.80-8.00) K/mcL Lymph # (Auto) (1.50-4.80) K/mcL Clayton # (Auto) (0.10-0.90) K/mcL Eos # (Auto) (0.00-0.70) K/mcL Baso # (Auto) (0.00-0.30) K/mcL VBG Lactic Acid (0.5-2.0) mmol/L Sodium (133-145) mmol/L Potassium (3.3-5.1) mmol/L Chloride (96-108) mmol/L Carbon Dioxide (22-30) mmol/L Anion Gap (8-16) BUN (8-23) mg/dl Creatinine (0.7-1.2) mg/dl GFR Calculation Glucose (70-105) mg/dL Osmolality 326 H (280-300) mOSM/kg Calcium (8.6-10.4) mg/dl Total Bilirubin (0.0-1.0) mg/dL AST (0-37) U/l ALT (0-40) U/l Alkaline Phosphatase (39-117) U/L Total Protein (5.9-8.4) gm/dL Albumin (3.2-5.2) gm/dL Globulin (2.2-3.7) gm/dL Albumin/Globulin Ratio (1.0-2.3) Procalcitonin 0.58 (<0.10) ng/mL - Radiology Data Radiology results reviewed: Yes I reviewed the patient's radiology results. Portable chest x-ray does show sided pneumonia. This will be over read by radiologist the next 12-24 hours. Disposition Pt seen by FAMILY SERVICES WORKER/PA only: Yes Clinical Impression: Pneumonia Qualifiers: Pneumonia type: due to unspecified organism Laterality: right Lung location: lower lobe of lung Qualified Code(s): J18.9 - Pneumonia, unspecified organism Disposition: Xfer As Inpt ([facility]) Condition: Fair
[2019-08-03] MEDS ORDERED: BENZONATATE 100 MG CAPSULE PO ONE (15:54)
[2019-08-03 16:39] LABS: Basophils # (Auto) 0.02 K/mcL (0.00-0.30); Basophils % (Auto) 0.2 % (0.0-2.0); Eosinophils # (Auto) 0.01 K/mcL (0.00-0.70); Eosinophils % (Auto) 0.1 % (0.0-7.0); Granulocytes % (Auto) 86.7 % (38.0-78.0); Hemoglobin 12.2 g/dL (13.7-17.5); Lymphocytes # (Auto) 0.85 K/mcL (1.50-4.80); Lymphocytes % (Auto) 6.5 % (15.5-49.0); Mean Cell Volume 88.3 fL (80.0-100.0); Monocytes # (Auto) 0.85 K/mcL (0.10-0.90); Monocytes % (Auto) 6.5 % (1.0-12.0); Platelet Count 425 K/mcL (140-440); RBC 4.19 M/mcL (4.63-6.08); Red Cell Distribution Width 13.9 % (11.5-14.5); WBC 13.1 K/mcL (4.50-11.00)
[2019-08-03 16:44] LABS: ALT/SGPT 81 U/l (0-40); AST/SGOT 40 U/l (0-37); Albumin 2.2 gm/dL (3.2-5.2); Albumin/Globulin Ratio 0.5 (1.0-2.3); Alkaline Phosphatase 99 U/L (39-117); Bilirubin,Total 0.8 mg/dL (0.0-1.0); Blood Urea Nitrogen 48 mg/dl (8-23); Calcium 8.1 mg/dl (8.6-10.4); Carbon Dioxide 16 mmol/L (22-30); Chloride 97 mmol/L (96-108); Globulin 4.7 gm/dL (2.2-3.7); Glomerular Filtration Rate 35; Glucose 417 mg/dL (70-105)
[2019-08-03] MEDS ORDERED: cefTRIAXone 1 GM VIAL IV ONE (16:50)
[2019-08-03] MEDS ORDERED: AZITHROMYCIN 250 MG TABLET PO ONE (16:51)
[2019-08-03] MEDS ORDERED: INSULIN REGULAR, HUMAN 1 UNIT/0.01 ML UNIT IV ONE ×2 (16:53→18:32)
[2019-08-03] MEDS ORDERED: 0.9 % SODIUM CHLORIDE 1,000 ML IV ONE (16:53)
[2019-08-03] MEDS ORDERED: cefTRIAXone 1 GM VIAL IM ONE (18:07)
--- NOTE | 2019-08-03 18:20 | Internal Med History&Physical ---
Medical - H&P: [facility] Patient information: Note initiated : 08/03/19 at 6:12 pm Service Date, if different from initiated Date: [] Patient: Jaiden Chavarria a 77 y/o M admitted on for Cold Symptoms. Chief Complaint: [] Chief complaint: Shortness of breath weakness History of present illness: Mr. Chavarria is a 77 year old M with a history of type 2 diabetes/coronary disease/atrial fibrillation/HTN and prostate cancer who presents to the ER with 1 month onset of progressive shortness of breath/cough or bloody sputum. Patient has had associated poor appetite/minimal weight loss but denies bloody stool. He denies recent sick contact. He is up-to-date on vaccines including flu and pneumonia. Patient denies associated fever, chills, headache, photophobia or myalgias but endorses to progressive weakness and decline in functionality. He lives alone and manages fairly independently. He has 5 daughters closest one lives in [facility]. He denies smoking/recent travel outside country/lower extremity edema/glandular swelling. He endorses to yellow-green productive sputum and recently has been blood-tinged. Initial work-up in the ER was consistent with right lower lobe pneumonia/white count 13.1, elevated lactic acid of 2.8, creatinine 1.8, elevated LFTs and sodium 132 Cultures obtained and patient was started on antibiotic coverage. Subsequently hospitalist service was consulted in light of above Review of systems A 10 point review system was performed and is negative except for ones discussed above. He follows up with oncology for metastatic prostate cancer. Medical - H&P: PM Medical history: Stroke (Chronic) Premature atrial complex (Acute) Adverse drug reaction (Acute) Palpitations (Acute) Palpitations (Acute) Chest pain (Acute) CAD (coronary artery disease) (Chronic) stable no complaints Vertebral compression fracture (Chronic) Osteoporosis (Chronic) Fracture of ankle, closed (Acute) BPH with obstruction/lower urinary tract symptoms (Acute) 10/24/2013 Hypertension, essential (Acute) Incomplete bladder emptying (Acute) 10/24/2013 Nausea (Acute) Urinary hesitancy (Acute) Urinary obstruction (Acute) Prostate cancer metastatic to intraabdominal lymph node (Acute) metastatic pelvic carcinoma, primary prostate adenocarcinoma Acute UTI (Acute) no predominant organism in confused man that was doing self cath. Facial droop (Chronic) Surgical History Hx of total hip arthroplasty (Acute) History of appendectomy (Acute) Nephrostomy status (Acute) Family History Mother Rheumatoid arthritis Father Heart attack Prostate cancer Brother Stroke Social History smoking status: Never smoker alcohol intake frequency: a few times a month Lives alone Has 5 daughters Medical - H&P: Meds Home Medications Medication Instructions Recorded Confirmed Type calcium carbonate 600 mg calcium 600 mg PO QDAY tab 02/22/18 08/03/19 History (1,500 mg) tablet bicalutamide 50 mg tablet 50 mg PO QDAY 07/21/18 08/03/19 History insulin aspart U-100 100 unit/mL 20 unit SUB-Q TID #45 ml 09/13/18 08/03/19 Rx (3 mL) subcutaneous pen insulin detemir U-100 100 unit/mL 35 unit SUB-Q QHS #33 ml 12/28/18 08/03/19 Rx (3 mL) subcutaneous pen blood sugar diagnostic See Dose Instructions .ROUTE 01/08/19 08/03/19 Rx .MEDSUPPLY #200 each pen needle, diabetic 32 gauge x See Rx Instructions .ROUTE 02/19/19 08/03/19 Rx 5/32" .MEDSUPPLY #200 each clopidogrel 75 mg tablet 75 mg PO QDAY #90 tab 03/20/19 08/03/19 Rx diltiazem HCl 120 mg 120 mg PO DAILY #90 cap 03/20/19 08/03/19 Rx capsule,extended release 24 hr losartan 50 mg tablet 50 mg PO QDAY 04/24/19 08/03/19 History metformin 500 mg tablet 500 mg PO BID #180 tab 06/07/19 08/03/19 Rx ezetimibe 10 mg tablet 10 mg PO HS #90 tab 06/18/19 08/03/19 Rx Allergies Allergy/AdvReac Type Severity Reaction Status Date / Time GWENDOLYN Inhibitors Allergy Severe Other Verified 08/03/19 15:09 Beta-Blockers Allergy Severe Other Verified 08/03/19 15:09 (Beta-Adrenergic Bloc Tyasrdv-Usf-Ika Reductase AdvReac Severe very bad Verified 08/03/19 15:09 Inhibitor nausea, muscle pains Tetracyclines AdvReac Mild Photosensit Verified 08/03/19 15:09 ivity Medical - H&P: Exam - Constitutional Vitals: Temp Pulse Resp BP Pulse Ox 100.8 F H 89 20 115/65 92 08/03/19 15:10 08/03/19 15:10 08/03/19 15:10 08/03/19 15:10 08/03/19 15:10 General appearance: no acute distress Exam: Alert oriented Head normocephalic Oral cavity dry No ear nose discharge Eye movement symmetrical S1-S2 occasionally irregular rhythm diminished breath sounds bases On 2 L oxygen Abdomen soft nontender nondistended Lower extremity no sinus clubbing no joint swelling or erythema Skin no suspicious lesion Psych alert cooperative Neuro nonfocal Medical - H&P: Reslt - Labs CBC & Chem 7: 08/03/19 15:45 08/03/19 15:45 Labs: Short CBC 08/03/19 Range/Units 15:45 WBC 13.1 H (4.50-11.00) K/mcL Hgb 12.2 L (13.7-17.5) g/dL Hct 37.0 L (40.1-51.0) % Plt Count 425 (140-440) K/mcL BMP 08/03/19 15:45 Sodium 132 L Potassium 4.3 Chloride 97 Carbon Dioxide 16 L BUN 48 H Creatinine 1.8 H Glucose 417 H Calcium 8.1 L Liver Function 08/03/19 Range/Units 15:45 Total Bilirubin 0.8 (0.0-1.0) mg/dL AST 40 H (0-37) U/l ALT 81 H (0-40) U/l Alkaline Phosphatase 99 (39-117) U/L Albumin 2.2 L (3.2-5.2) gm/dL Medical - H&P: A/P (1) Severe sepsis with acute organ dysfunction Current visit: Yes Status: Acute * Severe sepsis with acute organ dysfunction-pancultures/antibiotic/management per protocol. Crystalloid/vasopressors to keep map at goal. Trend venous lactate. * Right lower lobe pneumonia-broad antibiotic coverage for community-acquired pathogens, await sputum cultures. Maintain aspiration precautions/ST eval * Hypoxic respiratory failure secondary to above. Continue supplemental oxygen * Acute kidney injury-likely secondary to sepsis endorgan dysfunction. Baseline creatinine 1.3. Current creatinine 1.8. Continue monitor renal func tion/avoid nephrotoxins * Elevated LFTs-ALT/AST ratio 2 is to 1. Underlying viral infection is diffe rential. Await respiratory viral panel/COVID 19 * Hyponatremia-check urine and serum osmolarity. Appears hypovolemic * History of CAD continue Plavix * DM type II continue basal prandial insulin * History of hypertension-hold antihypertensives at this time until sepsis resolves * History of atrial fibrillation-continue rate control measures. * Prophylaxis on heparin * Full code Plan * ICU admit * Sepsis management guidelines * Crystalloid/vasopressors medicated/trend venous lactate * Antibiotic coverage * ST eval/dietary support/PT OT/aspiration precaution * Serum and urine osmolality * Pre-existing well condition management on home medication except for antihypertensives to be held in light of severe sepsis and renal failure
[2019-08-03] MEDS ORDERED: POTASSIUM CHLORIDE 20 MEQ PACKET PO PRN (20:57)
[2019-08-03] MEDS ORDERED: cefTRIAXone 2 GM in DEXTROSE 5% IN WATER 50 ML IV SCH (20:57)
[2019-08-03] MEDS ORDERED: MAGNESIUM SULFATE 2 GM/50 ML BAG IV PRN (20:57)
[2019-08-03] MEDS ORDERED: ACETAMINOPHEN 325 MG TABLET PO PRN (20:57)
[2019-08-03] MEDS ORDERED: ACETAMINOPHEN 650 MG/65 ML BOTTLE IV PRN (20:57)
[2019-08-03] MEDS ORDERED: guaiFENesin/CODEINE 10 ML UDC PO PRN (20:57)
[2019-08-03] MEDS ORDERED: ONDANSETRON 4 MG/2 ML VIAL IV PRN (20:57)
[2019-08-03] MEDS ORDERED: POLYETHYLENE GLYCOL 3350 17 GM PACKET PO PRN (20:57)
[2019-08-03] MEDS ORDERED: BISACODYL 10 MG SUPP.RECT PR PRN (20:57)
[2019-08-03] MEDS ORDERED: NOREPINEPHRINE BITARTRATE 16 MG in 0.9 % SODIUM CHLORIDE 234 ML IV PRN (20:57)
[2019-08-03] MEDS: DOCUSATE SODIUM 100 MG CAPSULE PO SCH (21:04)
[2019-08-03] MEDS: SENNOSIDES/DOCUSATE SODIUM 1 TAB TABLET PO SCH (21:04)
[2019-08-03] MEDS: 0.9 % SODIUM CHLORIDE 1,000 ML IV SCH (21:21)
[2019-08-03] MEDS: HEPARIN 5,000 UNIT/ML VIAL SQ SCH (22:20)
[2019-08-03] MEDS: LEVOFLOXACIN 750 MG/150 ML BAG IV SCH (22:21)
[2019-08-03] MEDS: 0.9 % SODIUM CHLORIDE 10 ML SYRINGE IV SCH (22:21)
[2019-08-04 06:48] LABS: Hematocrit 31.7 % (40.1-51.0); Hemoglobin 10.6 g/dL (13.7-17.5); Mean Cell Volume 88.3 fL (80.0-100.0); Mean Corpuscular HGB Conc 33.4 g/dL (31.0-36.0); Mean Platelet Volume 10.5 fL (7.4-10.4); Platelet Count 329 K/mcL (140-440); RBC 3.59 M/mcL (4.63-6.08); Red Cell Distribution Width 13.9 % (11.5-14.5); WBC 11.1 K/mcL (4.50-11.00)
[2019-08-04 07:19] LABS: ALT/SGPT 62 U/l (0-40); AST/SGOT 48 U/l (0-37); Albumin 1.8 gm/dL (3.2-5.2); Albumin/Globulin Ratio 0.4 (1.0-2.3); Alkaline Phosphatase 97 U/L (39-117); Bilirubin,Direct 0.3 mg/dL (0.0-0.3); Bilirubin,Total 0.6 mg/dL (0.0-1.0); Blood Urea Nitrogen 41 mg/dl (8-23); Calcium 7.6 mg/dl (8.6-10.4); Carbon Dioxide 19 mmol/L (22-30); Chloride 100 mmol/L (96-108); Globulin 4.1 gm/dL (2.2-3.7); Glomerular Filtration Rate 41; Glucose 266 mg/dL (70-105); Lactate Dehydrogenase 303 U/L (94-250); Phosphorous 2.1 mg/dL (2.7-4.5); Triglycerides 126 mg/dl (<150); Uric Acid 7.3 mg/dL (2.5-8.0)
--- NOTE | 2019-08-04 07:34 | XRay Report ---
CLINICAL INFORMATION: 77 y/o M. productive cough, SOB X 1 month COMPARISON: 01/27/2018 FINDINGS: Mild cardiomegaly is unchanged. Increasing density in the right mediastinum and infrahilar region, since prior exam, likely reflects enlarging lymph nodes. Pulmonary vasculature is normal. Moderate consolidated infiltrate has developed in the right midlung and base. There is only minor atelectasis in left base. Small right pleural effusion noted IMPRESSION: Moderate consolidated infiltrate right mid lung/base. Suggest Covid testing and strict isolation until results are known Interpreted and Authenticated by: Tray Prieto 08/04/19
[2019-08-04] MEDS: 0.9 % SODIUM CHLORIDE 10 ML SYRINGE IV SCH ×3 (07:39→21:02)
[2019-08-04 07:57] LABS: Band Neutrophils % 12 % (0-10); Lymphocytes % 13 % (15-49); Monocytes % (Manual) 7 % (1-12); Nucleated Red Blood Cells 1 % (0-0); Platelet Estimate NORMAL (NORMAL); RBC Morphology NORMAL (NORMAL); Segmented Neutrophils % 68 % (38-78)
[2019-08-04] MEDS: MULTIVIT,THER IRON,CA,FA & MIN 1 TABLET PO SCH (08:37)
[2019-08-04] MEDS: cefTRIAXone 2 GM in DEXTROSE 5% IN WATER 50 ML IV SCH (08:37)
[2019-08-04] MEDS: HEPARIN 5,000 UNIT/ML VIAL SQ SCH ×2 (08:37→21:01)
[2019-08-04] MEDS: NEUTRA PHOS 1 PACKET PO PRN (08:37)
[2019-08-04] MEDS: MUPIROCIN OINT 2% 22GM NARES SCH ×2 (08:38→21:01)
[2019-08-04] MEDS: DOCUSATE SODIUM 100 MG CAPSULE PO SCH ×2 (08:38→21:01)
[2019-08-04] MEDS ORDERED: DEXTROSE 50% 50 ML VIAL IV PRN (08:56)
[2019-08-04] MEDS ORDERED: DEXTROSE 31 GM ORAL.SUSP PO PRN (08:56)
[2019-08-04] MEDS: INSULIN LISPRO 1 UNIT/0.01 ML UNIT SQ SCH ×6 (09:18→21:02)
--- NOTE | 2019-08-04 09:34 | Internal Med Progress Note ---
Medical - PN: Subj Patient information: Note initiated : 08/04/19 at 9:31 am Service Date, if different from initiated Date: [] Patient: Jaiden Chavarria a 77 y/o M admitted on 08/03/19 for Cold Symptoms. Chief Complaint: [] Interval history: Mr. Chavarria is a 77 year old M with a history of type 2 diabetes/coronary dis ease/atrial fibrillation/HTN and prostate cancer who presents to the ER with 1 month onset of progressive shortness of breath/cough or bloody sputum. Patient has had associated poor appetite/minimal weight loss but denies bloody stool. He denies recent sick contact. He is up-to-date on vaccines including flu and pneumonia. Patient denies associated fever, chills, headache, photophobia or myalgias but endorses to progressive weakness and decline in functionality. He lives alone and manages fairly independently. He has 5 daughters closest one lives in [facility]. He denies smoking/recent travel outside country/lower extremity edema/glandular swelling. He endorses to yellow-green productive sputum and recently has been blood-tinged. Initial work-up in the ER was consistent with right lower lobe pneumonia/white count 13.1, elevated lactic acid of 2.8, creatinine 1.8, elevated LFTs and sodium 132 Cultures obtained and patient was started on antibiotic coverage. Subsequently hospitalist service was consulted in light of above 08/03-patient clinically improving. Improved shortness of breath. On 3 L oxygen. White count down to 11.1. 12% bands. 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 T-max 100, tachypneic, no overnight events or concerns per staff - Constitutional Vitals: Vital Signs Temp Pulse Resp BP Pulse Ox 100.0 F H 77 30 H 148/69 91 08/04/19 09:01 08/04/19 09:01 08/04/19 09:01 08/04/19 09:01 08/04/19 09:01 Period Temp Pulse Resp BP Sys/Aguero Pulse Ox Last 24 Hr 99.8 F-101.1 F 68-89 15-37 115-154/58-126 87-99 Intake and Output 08/03/19 08/04/19 08/04/19 21:59 05:59 13:59 Intake Total 1000 240 Output Total 1 750 100 Balance 999 -510 -100 Weight 185 lb 3.2 oz Intake & Output: Intake & Output 08/03/19 08/04/19 08/04/19 21:59 05:59 13:59 Intake Total 1000 240 Output Total 1 750 100 Balance 999 -510 -100 Weight 185 lb 3.2 oz Intake: IV 1000 Sodium Chloride 0.9% 1,000 ml @ 1000 Wide Open IV BOLUS ONE Rx#: [id number] Oral 240 Output: Urine Catheter Amount 750 100 # of times incontinent of urine 1 Other: Urine Appearance Clear Clear Uretheral (Lo) Clear Clear Urine Color Light Audra Bright Yellow Uretheral (Lo) Light Audra Bright Yellow Urine Odor Normal # of times incontinent of 1 Bowels General appearance: no acute distress Exam: Alert oriented Nonlabored breathing On2 liters oxygen No anxiety Medical - PN: Obj Da - Labs CBC & Chem 7: 08/04/19 04:48 08/04/19 04:48 Labs: Abnormal Lab Results 08/04/19 08/04/19 08/03/19 04:48 04:48 15:45 WBC 11.1 H RBC 3.59 L Hgb 10.6 L Hct 31.7 L MPV 10.5 H Gran % Lymph % (Auto) Gran # Lymph # (Auto) Band Neutrophils % 12 H Lymphocytes % 13 L Nucleated RBCs 1 H VBG Lactic Acid Sodium 132 L Carbon Dioxide 19 L Anion Gap BUN 41 H Creatinine 1.6 H Glucose 266 H Osmolality 326 H Calcium 7.6 L Phosphorus 2.1 L AST 48 H ALT 62 H Lactate Dehydrogenase 303 H Albumin 1.8 L Globulin 4.1 H Albumin/Globulin Ratio 0.4 L 08/03/19 08/03/19 08/03/19 15:45 15:45 15:45 WBC 13.1 H RBC 4.19 L Hgb 12.2 L Hct 37.0 L MPV Gran % 86.7 H Lymph % (Auto) 6.5 L Gran # 11.40 H Lymph # (Auto) 0.85 L Band Neutrophils % Lymphocytes % Nucleated RBCs VBG Lactic Acid 2.8 H Sodium 132 L Carbon Dioxide 16 L Anion Gap 19.0 H BUN 48 H Creatinine 1.8 H Glucose 417 H Osmolality Calcium 8.1 L Phosphorus AST 40 H ALT 81 H Lactate Dehydrogenase Albumin 2.2 L Globulin 4.7 H Albumin/Globulin Ratio 0.5 L Meds: Medications Acetaminophen (Tylenol) 650 mg PO Q4-6HP PRN; Protocol PRN Reason: Per Pain Protocol/Fever > 101 Bisacodyl (Dulcolax) 10 mg OR Q2-3DAYS PRN PRN Reason: Constipation Dextrose (Dextrose 50%) 0 ml IV UD PRN PRN Reason: Hypoglycemia Diagnostic Test (Pha) (Accu-Chek) 1 each FS ACHS [facility] Last Admin: 08/04/19 09:18 Dose: 1 each Documented by: Docusate Sodium (Colace) 100 mg PO BID [facility] Last Admin: 08/04/19 08:38 Dose: Not Given Documented by: Glucose (Insta-Glucose) 15 gm PO PRN PRN PRN Reason: Hypoglycemia Guaifenesin/Codeine Phosphate (Robitussin Ac) 10 ml PO Q4HP PRN PRN Reason: Cough Heparin Sodium (Porcine) (Heparin) 5,000 unit SQ Q12 [facility] Last Admin: 08/04/19 08:37 Dose: 5,000 unit Documented by: Sodium Chloride (Sodium Chloride 0.9%) 1,000 mls @ 50 mls/hr IV .Q20H [facility] Stop: 08/06/19 08:56 Last Admin: 08/03/19 21:21 Dose: 50 mls/hr Documented by: Acetaminophen (Ofirmev) 650 mg in 65 mls @ 130 mls/hr IV Q6HP PRN; Protocol PRN Reason: Per Pain Protocol/Fever > 101 Magnesium Sulfate (Magnesium Sulfate) 2 gm in 50 mls @ 50 mls/hr IV UD PRN PRN Reason: MG = or < 1.7 Levofloxacin (Levaquin) 750 mg in 150 mls @ 100 mls/hr IV Q48H [facility]; Protocol Last Admin: 08/03/19 22:21 Dose: 100 mls/hr Documented by: Norepinephrine Bitartrate 16 (mg/ Sodium Chloride) 250 mls @ 9.375 mls/hr IV Q24HP PRN; Protocol PRN Reason: MAP <65 Ceftriaxone Sodium 2 gm/ (Dextrose) 50 mls @ 100 mls/hr IV Q24H [facility]; Protocol Last Admin: 08/04/19 08:37 Dose: 100 mls/hr Documented by: Insulin Human Lispro (Humalog) 0 unit SQ ACHS [facility]; Protocol Last Admin: 08/04/19 09:18 Dose: 3 units Documented by: Iron Carb/Multivit/[place]/Folic Acid (Multivitamin W/Minerals) 1 tab PO DAILY [facility] Last Admin: 08/04/19 08:37 Dose: 1 tab Documented by: Melatonin (Melatonin 3mg Tablet) 3 mg PO HSP PRN PRN Reason: Insomnia Mupirocin (Bactroban Oint 2%) 1 dose NARES BID [facility] Last Admin: 08/04/19 08:38 Dose: 1 dose Documented by: Ondansetron HCl (Zofran) 4 mg IV Q4-6HP PRN; Protocol PRN Reason: Nausea And Vomiting Polyethylene Glycol (Miralax) 17 gm PO DAILYP PRN PRN Reason: Constipation Potassium Chloride (Klor-Con) 40 meq PO DAILYP PRN PRN Reason: K+ < 3.5 Potassium/Phosphorus/Sodium (Neutra Phos) 2 packet PO BID PRN PRN Reason: Phosphorus less than 2.6 Last Admin: 08/04/19 08:37 Dose: 2 packet Documented by: Senna/Docusate Sodium (Senna Plus Tablet) 1 tab PO HS [facility] Last Admin: 08/03/19 21:04 Dose: Not Given Documented by: Sodium Chloride (Saline Flush) 10 ml IV Q8 [facility] Last Admin: 08/04/19 07:39 Dose: 10 ml Documented by: Medical - PN: A/P - Time Spent With Patient Total time spent is greater than 50% in coordination of care (as documented) at patient's floor/unit and/or counseling patient: 25 - 35 minutes (1) Severe sepsis with acute organ dysfunction Status: Acute Assessment and plan: * Right lower lobe pneumonia-clinically improving on broad antibiotic coverage, await sputum cultures. Maintain aspiration precautions/ST eval * Hypoxic respiratory failure secondary to above. Continue supplemental oxygen/pulmonary toilet * Severe sepsis with acute organ dysfunction-pancultures were not obtained in ER/continue antibiotic/management per protocol. White count downtrending * Acute kidney injury-likely secondary to sepsis endorgan dysfunction. Baseline creatinine 1.3. Current creatinine 1.6. Improving. * Elevated LFTs-ALT/AST ratio 2 is to 1. Underlying viral infection is differential. Await respiratory viral panel/COVID 19 * Hyponatremia-euvolemic secondary SIADH. Initiate free water restriction * History of CAD continue Plavix * DM type II continue basal prandial insulin * History of hypertension-held antihypertensives until sepsis resolves * History of atrial fibrillation-continue rate control measures. * Prophylaxis on heparin * Full code Plan * Antibiotic coverage * Free water restriction * ST eval/dietary support/PT OT/aspiration precaution * Pre-existing well condition management on home medication except for antihypertensives to be held in light of severe sepsis and renal failure * Discharge planning Current Visit: Yes Medical - PN: Qual - VTE Deep Vein Thrombosis/Pulmonary Embolism Present on Admission: No
[2019-08-04] MEDS: 0.9 % SODIUM CHLORIDE 1,000 ML IV SCH (16:07)
[2019-08-04] MEDS ORDERED: DILTIAZEM 25 MG/5 ML VIAL IV ONE ×4 (17:28→18:36)
[2019-08-04] MEDS: metFORMIN 500 MG TABLET PO SCH (17:28)
[2019-08-04] MEDS ORDERED: DILTIAZEM 120 MG CAP.XL.24H PO ONE ×2 (17:31→18:38)
[2019-08-04] MEDS: EZETIMIBE 10 MG TABLET PO SCH (21:00)
[2019-08-04] MEDS: MELATONIN 3 MG TABLET PO PRN (21:00)
[2019-08-04] MEDS: SENNOSIDES/DOCUSATE SODIUM 1 TAB TABLET PO SCH (21:02)
[2019-08-04] MEDS: INSULIN GLARGINE, HUMAN 1 UNIT/0.01 ML SQ SCH (21:02)
[2019-08-05] MEDS: 0.9 % SODIUM CHLORIDE 10 ML SYRINGE IV SCH ×3 (05:41→20:13)
[2019-08-05 06:28] LABS: Hematocrit 30.9 % (40.1-51.0); Hemoglobin 10.1 g/dL (13.7-17.5); Mean Cell Volume 90.9 fL (80.0-100.0); Mean Corpuscular HGB Conc 32.7 g/dL (31.0-36.0); Mean Platelet Volume 9.9 fL (7.4-10.4); Platelet Count 383 K/mcL (140-440); WBC 12.6 K/mcL (4.50-11.00)
[2019-08-05 07:09] LABS: ALT/SGPT 79 U/l (0-40); AST/SGOT 94 U/l (0-37); Alkaline Phosphatase 99 U/L (39-117); Bilirubin,Direct 0.3 mg/dL (0.0-0.3); Bilirubin,Total 0.5 mg/dL (0.0-1.0); Blood Urea Nitrogen 38 mg/dl (8-23); Calcium 7.3 mg/dl (8.6-10.4); Carbon Dioxide 20 mmol/L (22-30); Chloride 105 mmol/L (96-108); Glomerular Filtration Rate 41; Glucose 122 mg/dL (70-105); Lactate Dehydrogenase 277 U/L (94-250); Phosphorous 2.4 mg/dL (2.7-4.5); Triglycerides 110 mg/dl (<150); Uric Acid 6.5 mg/dL (2.5-8.0)
[2019-08-05 07:14] LABS: Albumin 1.8 gm/dL (3.2-5.2); Albumin/Globulin Ratio 0.5 (1.0-2.3); Globulin 3.9 gm/dL (2.2-3.7)
[2019-08-05] MEDS: INSULIN LISPRO 1 UNIT/0.01 ML UNIT SQ SCH ×7 (07:37→20:11)
[2019-08-05 08:30] LABS: Band Neutrophils % 10 % (0-10); Eosinophils % (Manual) 2 % (0-7); Lymphocytes % 10 % (15-49); Monocytes % (Manual) 9 % (1-12); Platelet Estimate NORMAL (NORMAL); RBC Morphology NORMAL (NORMAL); Segmented Neutrophils % 69 % (38-78)
[2019-08-05] MEDS: cefTRIAXone 2 GM in DEXTROSE 5% IN WATER 50 ML IV SCH (09:00)
[2019-08-05] MEDS: MULTIVIT,THER IRON,CA,FA & MIN 1 TABLET PO SCH (09:01)
[2019-08-05] MEDS: DILTIAZEM 120 MG CAP.XL.24H PO SCH (09:01)
[2019-08-05] MEDS: NEUTRA PHOS 1 PACKET PO PRN (09:01)
[2019-08-05] MEDS: CALCIUM CARBONATE 500 MG TAB.CHEW PO SCH ×2 (09:01→22:35)
[2019-08-05] MEDS: HEPARIN 5,000 UNIT/ML VIAL SQ SCH ×2 (09:01→20:11)
[2019-08-05] MEDS: metFORMIN 500 MG TABLET PO SCH ×2 (09:01→18:18)
[2019-08-05] MEDS: CLOPIDOGREL 75 MG TABLET PO SCH (09:01)
[2019-08-05] MEDS: BICALUTAMIDE 50 MG TABLET PO SCH ×3 (09:02→11:53)
[2019-08-05] MEDS: DOCUSATE SODIUM 100 MG CAPSULE PO SCH ×2 (09:02→19:51)
[2019-08-05] MEDS: MUPIROCIN OINT 2% 22GM NARES SCH ×2 (09:02→20:09)
--- NOTE | 2019-08-05 09:36 | Internal Med Progress Note ---
Medical - PN: Subj Patient information: Note initiated : 08/05/19 at 9:32 am Service Date, if different from initiated Date: [] Patient: Jaiden Chavarria a 77 y/o M admitted on 08/03/19 for Cold Symptoms. Chief Complaint: [] Interval history: Mr. Chavarria is a 77 year old M with a history of type 2 diabetes/coronary dis ease/atrial fibrillation/HTN and prostate cancer who presents to the ER with 1 month onset of progressive shortness of breath/cough or bloody sputum. Patient has had associated poor appetite/minimal weight loss but denies bloody stool. He denies recent sick contact. He is up-to-date on vaccines including flu and pneumonia. Patient denies associated fever, chills, headache, photophobia or myalgias but endorses to progressive weakness and decline in functionality. He lives alone and manages fairly independently. He has 5 daughters closest one lives in [facility]. He denies smoking/recent travel outside country/lower extremity edema/glandular swelling. He endorses to yellow-green productive sputum and recently has been blood-tinged. Initial work-up in the ER was consistent with right lower lobe pneumonia/white count 13.1, elevated lactic acid of 2.8, creatinine 1.8, elevated LFTs and sodium 132 Cultures obtained and patient was started on antibiotic coverage. Subsequently hospitalist service was consulted in light of above 08/03-patient clinically improving. Improved shortness of breath. On 3 L oxygen. White count down to 11.1. 12% bands. 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 T-max 100, tachypneic, no overnight events or concerns per staff 08/04-patient doing well. No overnight events. White count 12.6. Cough improved. Improved shortness of breath. Currently on room air. Lactic acid normalized. Sodium 138 with fluid restriction. LFTs uptrending. Creatinine 1.6. Interval chest imaging today. Continue antibiotic coverage - Constitutional Vitals: Vital Signs Temp Pulse Resp BP Pulse Ox 99.2 F H 74 18 137/61 91 08/05/19 08:00 08/04/19 20:01 08/05/19 08:00 08/05/19 07:01 08/05/19 08:00 Period Temp Pulse Resp BP Sys/Aguero Pulse Ox Last 24 Hr 82.7 F-101.0 F 74-133 5-39 85-164/41-104 87-94 Intake and Output 08/04/19 08/05/19 08/05/19 21:59 05:59 13:59 Intake Total 1920 560 Output Total 120 500 180 Balance 1800 -500 380 Weight 184 lb 8 oz Intake & Output: Intake & Output 08/04/19 08/05/19 08/05/19 21:59 05:59 13:59 Intake Total 1920 560 Output Total 120 500 180 Balance 1800 -500 380 Weight 184 lb 8 oz Intake: IV 1000 Sodium Chloride 0.9% 1,000 ml @ 1000 50 mls/hr IV .Q20H [facility] Rx#: [id number] Oral 920 360 GI Tube Flush 0 200 Output: Urine Catheter Amount 120 500 180 Other: Meal Dinner Percent of Meal Consumed 100% Feeding Ability Assist with Tray Set Up Urine Appearance Clear Clear Clear Uretheral (Lo) Clear Clear Urine Color Dark Yellow Dark Yellow Uretheral (Lo) Bright Yellow Bright Yellow Urine Odor Normal Stool Size Small Small Stool Color Brown Brown Stool Consistency Soft Soft General appearance: no acute distress Exam: Alert oriented Nonlabored breathing No anxiety No telemetry events Lo draining clear urine Medical - PN: Obj Da - Labs CBC & Chem 7: 08/05/19 04:45 08/05/19 04:45 Labs: Abnormal Lab Results 08/05/19 08/05/19 08/04/19 04:45 04:45 04:48 WBC 12.6 H RBC 3.40 L Hgb 10.1 L Hct 30.9 L MPV Gran % Lymph % (Auto) Gran # Lymph # (Auto) Band Neutrophils % Lymphocytes % 10 L Nucleated RBCs VBG Lactic Acid Sodium 132 L Carbon Dioxide 20 L 19 L Anion Gap BUN 38 H 41 H Creatinine 1.6 H 1.6 H Glucose 122 H 266 H Osmolality Calcium 7.3 L 7.6 L Phosphorus 2.4 L 2.1 L AST 94 H 48 H ALT 79 H 62 H Lactate Dehydrogenase 277 H 303 H Total Protein 5.7 L Albumin 1.8 L 1.8 L Globulin 3.9 H 4.1 H Albumin/Globulin Ratio 0.5 L 0.4 L 08/04/19 08/03/1920 04:48 15:45 15:45 WBC 11.1 H RBC 3.59 L Hgb 10.6 L Hct 31.7 L MPV 10.5 H Gran % Lymph % (Auto) Gran # Lymph # (Auto) Band Neutrophils % 12 H Lymphocytes % 13 L Nucleated RBCs 1 H VBG Lactic Acid 2.8 H Sodium Carbon Dioxide Anion Gap BUN Creatinine Glucose Osmolality 326 H Calcium Phosphorus AST ALT Lactate Dehydrogenase Total Protein Albumin Globulin Albumin/Globulin Ratio 08/03/19 08/03/19 15:45 15:45 WBC 13.1 H RBC 4.19 L Hgb 12.2 L Hct 37.0 L MPV Gran % 86.7 H Lymph % (Auto) 6.5 L Gran # 11.40 H Lymph # (Auto) 0.85 L Band Neutrophils % Lymphocytes % Nucleated RBCs VBG Lactic Acid Sodium 132 L Carbon Dioxide 16 L Anion Gap 19.0 H BUN 48 H Creatinine 1.8 H Glucose 417 H Osmolality Calcium 8.1 L Phosphorus AST 40 H ALT 81 H Lactate Dehydrogenase Total Protein Albumin 2.2 L Globulin 4.7 H Albumin/Globulin Ratio 0.5 L Meds: Medications Acetaminophen (Tylenol) 650 mg PO Q4-6HP PRN; Protocol PRN Reason: Per Pain Protocol/Fever > 101 Last Admin: 08/04/19 16:06 Dose: 650 mg Documented by: Bicalutamide (Casodex) 50 mg PO QDAY [facility] Last Admin: 08/05/19 09:02 Dose: Not Given Documented by: Bisacodyl (Dulcolax) 10 mg [place] Q2-3DAYS PRN PRN Reason: Constipation Calcium Carbonate/Glycine (Tums) 500 mg PO QDAY [facility] Last Admin: 08/05/19 09:01 Dose: 500 mg Documented by: Clopidogrel Bisulfate (Plavix) 75 mg PO QDAY [facility] Last Admin: 08/05/19 09:01 Dose: 75 mg Documented by: Dextrose (Dextrose 50%) 0 ml IV UD PRN PRN Reason: Hypoglycemia Diagnostic Test (Pha) (Accu-Chek) 1 each FS ACHS [facility] Last Admin: 08/05/19 07:37 Dose: 1 each Documented by: Diltiazem HCl (Cardizem Sr) 120 mg PO DAILY [facility] Last Admin: 08/05/19 09:01 Dose: 120 mg Documented by: Docusate Sodium (Colace) 100 mg PO BID [facility] Last Admin: 08/05/19 09:02 Dose: Not Given Documented by: Ezetimibe (Zetia) 10 mg PO HS [facility] Last Admin: 08/04/19 21:00 Dose: 10 mg Documented by: Glucose (Insta-Glucose) 15 gm PO PRN PRN PRN Reason: Hypoglycemia Guaifenesin/Codeine Phosphate (Robitussin Ac) 10 ml PO Q4HP PRN PRN Reason: Cough Last Admin: 08/04/19 21:00 Dose: 10 ml Documented by: Heparin Sodium (Porcine) (Heparin) 5,000 unit SQ Q12 [facility] Last Admin: 08/05/19 09:01 Dose: 5,000 unit Documented by: Sodium Chloride (Sodium Chloride 0.9%) 1,000 mls @ 50 mls/hr IV .Q20H [facility] Stop: 08/06/19 08:56 Last Admin: 08/04/19 16:07 Dose: 50 mls/hr Documented by: Acetaminophen (Ofirmev) 650 mg in 65 mls @ 130 mls/hr IV Q6HP PRN; Protocol PRN Reason: Per Pain Protocol/Fever > 101 Magnesium Sulfate (Magnesium Sulfate) 2 gm in 50 mls @ 50 mls/hr IV UD PRN PRN Reason: MG = or < 1.7 Levofloxacin (Levaquin) 750 mg in 150 mls @ 100 mls/hr IV Q48H [facility]; Protocol Last Admin: 08/03/19 22:21 Dose: 100 mls/hr Documented by: Norepinephrine Bitartrate 16 (mg/ Sodium Chloride) 250 mls @ 9.375 mls/hr IV Q24HP PRN; Protocol PRN Reason: MAP <65 Ceftriaxone Sodium 2 gm/ (Dextrose) 50 mls @ 100 mls/hr IV Q24H [facility]; Protocol Last Admin: 08/05/19 09:00 Dose: 100 mls/hr Documented by: Insulin Glargine (Lantus) 35 unit SQ QHS [facility] Last Admin: 08/04/19 21:02 Dose: 35 unit Documented by: Insulin Human Lispro (Humalog) 0 unit SQ ACHS [facility]; Protocol Last Admin: 08/05/19 07:37 Dose: Not Given Documented by: Insulin Human Lispro (Humalog) 20 unit SQ TIDAC [facility] Last Admin: 04/12/20 07:38 Dose: Not Given Documented by: Iron Carb/Multivit/Re Dye Hand/Folic Acid (Multivitamin W/Minerals) 1 tab PO DAILY [facility] Last Admin: 08/05/19 09:01 Dose: 1 tab Documented by: Melatonin (Melatonin 3mg Tablet) 3 mg PO HSP PRN PRN Reason: Insomnia Last Admin: 08/04/19 21:00 Dose: 3 mg Documented by: Metformin HCl (Glucophage) 500 mg PO BIDCC [facility] Last Admin: 08/05/19 09:01 Dose: 500 mg Documented by: Mupirocin (Bactroban Oint 2%) 1 dose NARES BID [facility] Last Admin: 08/05/19 09:02 Dose: 1 dose Documented by: Ondansetron HCl (Zofran) 4 mg IV Q4-6HP PRN; Protocol PRN Reason: Nausea And Vomiting Polyethylene Glycol (Miralax) 17 gm PO DAILYP PRN PRN Reason: Constipation Potassium Chloride (Klor-Con) 40 meq PO DAILYP PRN PRN Reason: K+ < 3.5 Potassium/Phosphorus/Sodium (Neutra Phos) 2 packet PO BID PRN PRN Reason: Phosphorus less than 2.6 Last Admin: 08/05/19 09:01 Dose: 2 packet Documented by: Senna/Docusate Sodium (Senna Plus Tablet) 1 tab PO HS [facility] Last Admin: 08/04/19 21:02 Dose: Not Given Documented by: Sodium Chloride (Saline Flush) 10 ml IV Q8 [facility] Last Admin: 08/05/19 05:41 Dose: 10 ml Documented by: Medical - PN: A/P - Time Spent With Patient Total time spent is greater than 50% in coordination of care (as documented) at patient's floor/unit and/or counseling patient: 25 - 35 minutes (1) Severe sepsis with acute organ dysfunction Status: Acute Assessment and plan: * Right lower lobe pneumonia-clinically improved on antibiotics/pulmonary toilet. Now on room air * Severe sepsis with acute organ dysfunction-pancultures were not obtained in ER/continue antibiotic/management per protocol. White count downtrending * Acute kidney injury-likely secondary to sepsis endorgan dysfunction. Gradually improving. Baseline 1.3 * Elevated LFTs-ALT/AST ratio 2 is to 1. Underlying viral infection in differential. Await respiratory viral panel/COVID 19 * Hyponatremia-euvolemic secondary SIADH. Clinically improved with free water restriction * Low phosphorus replace phosphorus * History of CAD continue Plavix * DM type II continue basal prandial insulin * History of prostate cancer-patient frequently self catheterizes. Currently on Lo's catheter * History of hypertension-restart antihypertensives * History of atrial fibrillation-converted back to sinus. Continue rate control measures. * Prophylaxis on heparin * Full code Plan * Continue antibiotic coverage * Free water restriction * Replace phosphorus * PT OT/nutrition support * Pre-existing medical condition management on home medication * Discharge planning Current Visit: Yes Medical - PN: Qual - VTE Deep Vein Thrombosis/Pulmonary Embolism Present on Admission: No
[2019-08-05] MEDS: LEVOFLOXACIN 750 MG/150 ML BAG IV SCH (10:15)
--- NOTE | 2019-08-05 11:42 | XRay Report ---
CLINICAL INFORMATION: Follow-up right lower lobe pneumonia pneumonia COMPARISON: 08/03/2019 FINDINGS: Heart is normal in size and configuration. Increased density in the right hilum and mediastinum likely reflects reactive adenopathy - no change. Pulmonary vessels normal. Right lung infiltrate has worsened - now diffuse involvement including a new region of consolidation in the right upper lobe. Small right pleural effusion appreciated. Minor atelectasis in the left base IMPRESSION: Worsening right lung infiltrate now with diffuse involvement. Small right pleural effusion noted Interpreted and Authenticated by: Tray Prieto 08/05/19
[2019-08-05] MEDS: 0.9 % SODIUM CHLORIDE 1,000 ML IV SCH (14:00)
[2019-08-05] MEDS: SENNOSIDES/DOCUSATE SODIUM 1 TAB TABLET PO SCH (19:51)
[2019-08-05] MEDS: INSULIN GLARGINE, HUMAN 1 UNIT/0.01 ML SQ SCH (20:10)
[2019-08-05] MEDS: MELATONIN 3 MG TABLET PO PRN (20:12)
[2019-08-05] MEDS: EZETIMIBE 10 MG TABLET PO SCH (20:13)
[2019-08-06 06:31] LABS: Hematocrit 31.2 % (40.1-51.0); Hemoglobin 10.2 g/dL (13.7-17.5); Mean Corpuscular HGB Conc 32.7 g/dL (31.0-36.0); Mean Platelet Volume 9.5 fL (7.4-10.4); Platelet Count 431 K/mcL (140-440); RBC 3.43 M/mcL (4.63-6.08); Red Cell Distribution Width 14.5 % (11.5-14.5); WBC 12.4 K/mcL (4.50-11.00)
[2019-08-06 07:11] LABS: ALT/SGPT 52 U/l (0-40); AST/SGOT 52 U/l (0-37); Alkaline Phosphatase 81 U/L (39-117); Bilirubin,Total 0.4 mg/dL (0.0-1.0); Blood Urea Nitrogen 35 mg/dl (8-23); Calcium 7.2 mg/dl (8.6-10.4); Carbon Dioxide 21 mmol/L (22-30); Chloride 106 mmol/L (96-108); Glomerular Filtration Rate 44; Glucose 104 mg/dL (70-105); Lactate Dehydrogenase 218 U/L (94-250); Phosphorous 2.7 mg/dL (2.7-4.5); Triglycerides 130 mg/dl (<150); Uric Acid 5.7 mg/dL (2.5-8.0)
[2019-08-06 07:13] LABS: Albumin 1.8 gm/dL (3.2-5.2); Albumin/Globulin Ratio 0.5 (1.0-2.3); Bilirubin,Direct < 0.2 mg/dL (0.0-0.3); Globulin 3.8 gm/dL (2.2-3.7)
[2019-08-06 07:34] LABS: Anisocytosis FEW (NONE SEEN); Band Neutrophils % 8 % (0-10); Lymphocytes % 9 % (15-49); Monocytes % (Manual) 8 % (1-12); Platelet Estimate NORMAL (NORMAL); Polychromasia FEW (NONE SEEN); RBC Morphology ABNORM (NORMAL); Segmented Neutrophils % 75 % (38-78)
[2019-08-06] MEDS: 0.9 % SODIUM CHLORIDE 10 ML SYRINGE IV SCH ×3 (08:02→21:56)
[2019-08-06] MEDS: INSULIN LISPRO 1 UNIT/0.01 ML UNIT SQ SCH ×5 (08:04→21:55)
[2019-08-06] MEDS: cefTRIAXone 2 GM in DEXTROSE 5% IN WATER 50 ML IV SCH (08:59)
[2019-08-06] MEDS: HEPARIN 5,000 UNIT/ML VIAL SQ SCH ×2 (09:00→21:43)
[2019-08-06] MEDS: MULTIVIT,THER IRON,CA,FA & MIN 1 TABLET PO SCH (09:00)
[2019-08-06] MEDS: MUPIROCIN OINT 2% 22GM NARES SCH ×2 (09:00→21:43)
[2019-08-06] MEDS: BICALUTAMIDE 50 MG TABLET PO SCH (09:00)
[2019-08-06] MEDS: DOCUSATE SODIUM 100 MG CAPSULE PO SCH ×2 (09:01→21:43)
[2019-08-06] MEDS: DILTIAZEM 120 MG CAP.XL.24H PO SCH (09:01)
[2019-08-06] MEDS: CLOPIDOGREL 75 MG TABLET PO SCH (09:01)
[2019-08-06] MEDS: metFORMIN 500 MG TABLET PO SCH ×2 (09:01→17:48)
[2019-08-06] MEDS: CALCIUM CARBONATE 500 MG TAB.CHEW PO SCH (09:01)
--- NOTE | 2019-08-06 09:25 | Internal Med Progress Note ---
Medical - PN: Subj Patient information: Note initiated : 08/06/19 at 9:21 am Service Date, if different from initiated Date: [] Patient: Jaiden Chavarria a 77 y/o M admitted on 08/03/19 for Cold Symptoms. Chief Complaint: [] Interval history: Mr. Chavarria is a 77 year old M with a history of type 2 diabetes/coronary dis ease/atrial fibrillation/HTN and prostate cancer who presents to the ER with 1 month onset of progressive shortness of breath/cough or bloody sputum. Patient has had associated poor appetite/minimal weight loss but denies bloody stool. He denies recent sick contact. He is up-to-date on vaccines including flu and pneumonia. Patient denies associated fever, chills, headache, photophobia or myalgias but endorses to progressive weakness and decline in functionality. He lives alone and manages fairly independently. He has 5 daughters closest one lives in [facility]. He denies smoking/recent travel outside country/lower extremity edema/glandular swelling. He endorses to yellow-green productive sputum and recently has been blood-tinged. Initial work-up in the ER was consistent with right lower lobe pneumonia/white count 13.1, elevated lactic acid of 2.8, creatinine 1.8, elevated LFTs and sodium 132 Cultures obtained and patient was started on antibiotic coverage. Subsequently hospitalist service was consulted in light of above 08/03-patient clinically improving. Improved shortness of breath. On 3 L oxygen. White count down to 11.1. 12% bands. 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 T-max 100, tachypneic, no overnight events or concerns per staff 08/04-patient doing well. No overnight events. White count 12.6. Cough improved. Improved shortness of breath. Currently on room air. Lactic acid normalized. Sodium 138 with fluid restriction. LFTs uptrending. Creatinine 1.6. Interval chest imaging today. Continue antibiotic coverage 08/05-patient doing remarkably better. White count 12.4. Improved cough and shortness of breath. Sodium 138. Creatinine down to 1.5. Downtrending LFTs. Urine culture staph aureus/enterococci. DC Lo's catheter. Worsening right lung infiltrate on interval chest imaging. Continue antibiotic coverage. On 1 L oxygen. T-max 99.9. Transfer to medical floor - Constitutional Vitals: Vital Signs Temp Pulse Resp BP Pulse Ox 99.9 F H 78 24 H 123/70 94 08/06/19 08:13 08/06/19 08:13 08/06/19 08:13 08/06/19 08:02 08/06/19 08:13 Period Temp Pulse Resp BP Sys/Aguero Pulse Ox Last 24 Hr 97.4 F-100.5 F 60-83 12-34 99-145/49-111 91-95 Intake and Output 08/05/19 08/06/19 08/06/19 21:59 05:59 13:59 Intake Total 820 Output Total 400 300 Balance -400 520 Weight 191 lb 1.6 oz Intake & Output: Intake & Output 08/05/19 08/06/19 08/06/19 21:59 05:59 13:59 Intake Total 820 Output Total 400 300 Balance -400 520 Weight 191 lb 1.6 oz Intake: Oral 460 GI Tube Flush 360 Output: Urine Catheter Amount 400 300 Other: Meal Dinner Breakfast Percent of Meal Consumed 100% 100% Feeding Ability Independent Urine Appearance Clear Sediment Clear Uretheral (Lo) Clear Clear Urine Color Dark Yellow Dark Yellow Light Audra Uretheral (Lo) Bright Yellow Bright Yellow Urine Odor Normal Stool Size Smear Small Stool Color Brown Brown Stool Consistency Soft Loose # of times incontinent of 1 Bowels General appearance: no acute distress Exam: Alert oriented Nonlabored breathing No anxiety Nondistended abdomen Lo draining clear urine Medical - PN: Obj Da - Labs CBC & Chem 7: 08/06/19 04:44 08/06/19 04:44 Labs: Abnormal Lab Results 08/06/19 08/06/19 08/05/19 04:44 04:44 04:45 WBC 12.4 H RBC 3.43 L Hgb 10.2 L Hct 31.2 L MPV Gran % Lymph % (Auto) Gran # Lymph # (Auto) Band Neutrophils % Lymphocytes % 9 L Nucleated RBCs RBC Morphology Abnorm A Polychromasia Few A Anisocytosis Few A VBG Lactic Acid Sodium Carbon Dioxide 21 L 20 L Anion Gap BUN 35 H 38 H Creatinine 1.5 H 1.6 H Glucose 122 H Osmolality Calcium 7.2 L 7.3 L Phosphorus 2.4 L AST 52 H 94 H ALT 52 H 79 H Lactate Dehydrogenase 277 H Total Protein 5.6 L 5.7 L Albumin 1.8 L 1.8 L Globulin 3.8 H 3.9 H Albumin/Globulin Ratio 0.5 L 0.5 L 08/05/19 08/04/19 08/04/19 04:45 04:48 04:48 WBC 12.6 H 11.1 H RBC 3.40 L 3.59 L Hgb 10.1 L 10.6 L Hct 30.9 L 31.7 L MPV 10.5 H Gran % Lymph % (Auto) Gran # Lymph # (Auto) Band Neutrophils % 12 H Lymphocytes % 10 L 13 L Nucleated RBCs 1 H RBC Morphology Polychromasia Anisocytosis VBG Lactic Acid Sodium 132 L Carbon Dioxide 19 L Anion Gap BUN 41 H Creatinine 1.6 H Glucose 266 H Osmolality Calcium 7.6 L Phosphorus 2.1 L AST 48 H ALT 62 H Lactate Dehydrogenase 303 H Total Protein Albumin 1.8 L Globulin 4.1 H Albumin/Globulin Ratio 0.4 L 08/03/19 08/03/19 08/03/19 15:45 15:45 15:45 WBC RBC Hgb Hct MPV Gran % Lymph % (Auto) Gran # Lymph # (Auto) Band Neutrophils % Lymphocytes % Nucleated RBCs RBC Morphology Polychromasia Anisocytosis VBG Lactic Acid 2.8 H Sodium 132 L Carbon Dioxide 16 L Anion Gap 19.0 H BUN 48 H Creatinine 1.8 H Glucose 417 H Osmolality 326 H Calcium 8.1 L Phosphorus AST 40 H ALT 81 H Lactate Dehydrogenase Total Protein Albumin 2.2 L Globulin 4.7 H Albumin/Globulin Ratio 0.5 L 08/03/19 15:45 WBC 13.1 H RBC 4.19 L Hgb 12.2 L Hct 37.0 L MPV Gran % 86.7 H Lymph % (Auto) 6.5 L Gran # 11.40 H Lymph # (Auto) 0.85 L Band Neutrophils % Lymphocytes % Nucleated RBCs RBC Morphology Polychromasia Anisocytosis VBG Lactic Acid Sodium Carbon Dioxide Anion Gap BUN Creatinine Glucose Osmolality Calcium Phosphorus AST ALT Lactate Dehydrogenase Total Protein Albumin Globulin Albumin/Globulin Ratio Meds: Medications Acetaminophen (Tylenol) 650 mg PO Q4-6HP PRN; Protocol PRN Reason: Per Pain Protocol/Fever > 101 Last Admin: 08/04/19 16:06 Dose: 650 mg Documented by: Bicalutamide (Casodex) 50 mg PO QDAY [facility] Last Admin: 08/06/19 09:00 Dose: 50 mg Documented by: Bisacodyl (Dulcolax) 10 mg [place] Q2-3DAYS PRN PRN Reason: Constipation Calcium Carbonate/Glycine (Tums) 500 mg PO QDAY [facility] Last Admin: 08/06/19 09:01 Dose: Not Given Documented by: Clopidogrel Bisulfate (Plavix) 75 mg PO QDAY [facility] Last Admin: 08/06/19 09:01 Dose: 75 mg Documented by: Dextrose (Dextrose 50%) 0 ml IV UD PRN PRN Reason: Hypoglycemia Diagnostic Test (Pha) (Accu-Chek) 1 each FS ACHS [facility] Last Admin: 08/06/19 08:03 Dose: 1 each Documented by: Diltiazem HCl (Cardizem Sr) 120 mg PO DAILY [facility] Last Admin: 08/06/19 09:01 Dose: 120 mg Documented by: Docusate Sodium (Colace) 100 mg PO BID [facility] Last Admin: 08/06/19 09:01 Dose: Not Given Documented by: Ezetimibe (Zetia) 10 mg PO HS [facility] Last Admin: 08/05/19 20:13 Dose: 10 mg Documented by: Glucose (Insta-Glucose) 15 gm PO PRN PRN PRN Reason: Hypoglycemia Guaifenesin/Codeine Phosphate (Robitussin Ac) 10 ml PO Q4HP PRN PRN Reason: Cough Last Admin: 08/04/19 21:00 Dose: 10 ml Documented by: Heparin Sodium (Porcine) (Heparin) 5,000 unit SQ Q12 [facility] Last Admin: 08/06/19 09:00 Dose: 5,000 unit Documented by: Acetaminophen (Ofirmev) 650 mg in 65 mls @ 130 mls/hr IV Q6HP PRN; Protocol PRN Reason: Per Pain Protocol/Fever > 101 Magnesium Sulfate (Magnesium Sulfate) 2 gm in 50 mls @ 50 mls/hr IV UD PRN PRN Reason: MG = or < 1.7 Levofloxacin (Levaquin) 750 mg in 150 mls @ 100 mls/hr IV Q48H [facility]; Protocol Last Infusion: 08/05/19 11:45 Dose: Infused Documented by: Norepinephrine Bitartrate 16 (mg/ Sodium Chloride) 250 mls @ 9.375 mls/hr IV Q24HP PRN; Protocol PRN Reason: MAP <65 Ceftriaxone Sodium 2 gm/ (Dextrose) 50 mls @ 100 mls/hr IV Q24H [facility]; Protocol Last Admin: 08/06/19 08:59 Dose: 100 mls/hr Documented by: Insulin Glargine (Lantus) 35 unit SQ QHS [facility] Last Admin: 08/05/19 20:10 Dose: 35 unit Documented by: Insulin Human Lispro (Humalog) 0 unit SQ ACHS [facility]; Protocol Last Admin: 08/06/19 08:04 Dose: Not Given Documented by: Iron Carb/Multivit/[place]/Folic Acid (Multivitamin W/Minerals) 1 tab PO DAILY [facility] Last Admin: 08/06/19 09:00 Dose: 1 tab Documented by: Melatonin (Melatonin 3mg Tablet) 3 mg PO HSP PRN PRN Reason: Insomnia Last Admin: 08/05/19 20:12 Dose: 3 mg Documented by: Metformin HCl (Glucophage) 500 mg PO BIDCC [facility] Last Admin: 08/06/19 09:01 Dose: 500 mg Documented by: Mupirocin (Bactroban Oint 2%) 1 dose NARES BID [facility] Last Admin: 08/06/19 09:00 Dose: 1 dose Documented by: Ondansetron HCl (Zofran) 4 mg IV Q4-6HP PRN; Protocol PRN Reason: Nausea And Vomiting Polyethylene Glycol (Miralax) 17 gm PO DAILYP PRN PRN Reason: Constipation Potassium Chloride (Klor-Con) 40 meq PO DAILYP PRN PRN Reason: K+ < 3.5 Potassium/Phosphorus/Sodium (Neutra Phos) 2 packet PO BID PRN PRN Reason: Phosphorus less than 2.6 Last Admin: 08/05/19 09:01 Dose: 2 packet Documented by: Senna/Docusate Sodium (Senna Plus Tablet) 1 tab PO HS [facility] Last Admin: 08/05/19 19:51 Dose: Not Given Documented by: Sodium Chloride (Saline Flush) 10 ml IV Q8 [facility] Last Admin: 08/06/19 08:02 Dose: 10 ml Documented by: Medical - PN: A/P - Time Spent With Patient Total time spent is greater than 50% in coordination of care (as documented) at patient's floor/unit and/or counseling patient: 25 - 35 minutes (1) Severe sepsis with acute organ dysfunction Status: Acute Assessment and plan: * Right lower lobe pneumonia-clinically improved on antibiotics/pulmonary toilet. Now on room air * Severe sepsis with acute organ dysfunction-pancultures were not obtained in ER/continue antibiotic/management per protocol. White count downtrending * Acute kidney injury-likely secondary to sepsis endorgan dysfunction. Now close to baseline * Elevated LFTs-ALT/AST ratio 2 is to 1. Underlying viral infection in dif ferential. Await COVID 19 RNA * Hyponatremia-euvolemic secondary to SIADH. Resolved with free water restriction. Sodium 138 * Low phosphorus resolved with replacement * History of CAD continue Plavix * DM type II continue basal prandial insulin * History of prostate cancer-patient frequently self catheterizes. DC Lo's catheter * History of hypertension-restart antihypertensives once systolics over 140 * History of atrial fibrillation-converted back to sinus. Continue rate control measures. * Prophylaxis on heparin * Full code Plan * Continue antibiotic coverage * DC Lo's catheter * DC Free water restriction * PT OT/nutrition support * Pre-existing medical condition management on home medication * Discharge planning possibly in 24 to 48 hours pending clinical and radiological improvement Current Visit: Yes Medical - PN: Qual - VTE Deep Vein Thrombosis/Pulmonary Embolism Present on Admission: No
[2019-08-06] MEDS ORDERED: POTASSIUM CHLORIDE 20 MEQ PACKET PO PRN (09:43)
[2019-08-06] MEDS ORDERED: ONDANSETRON 4 MG/2 ML VIAL IV PRN (09:43)
[2019-08-06] MEDS ORDERED: MAGNESIUM SULFATE 2 GM/50 ML BAG IV PRN (09:43)
[2019-08-06] MEDS ORDERED: BISACODYL 10 MG SUPP.RECT PR PRN (09:43)
[2019-08-06] MEDS ORDERED: NEUTRA PHOS 1 PACKET PO PRN (09:43)
[2019-08-06] MEDS ORDERED: DEXTROSE 50% 50 ML VIAL IV PRN (09:43)
[2019-08-06] MEDS ORDERED: DEXTROSE 31 GM ORAL.SUSP PO PRN (09:43)
[2019-08-06] MEDS ORDERED: MELATONIN 3 MG TABLET PO PRN (09:43)
[2019-08-06] MEDS ORDERED: POLYETHYLENE GLYCOL 3350 17 GM PACKET PO PRN (09:43)
[2019-08-06] MEDS ORDERED: NOREPINEPHRINE BITARTRATE 16 MG in 0.9 % SODIUM CHLORIDE 234 ML IV PRN (09:43)
[2019-08-06] MEDS ORDERED: ACETAMINOPHEN 650 MG/65 ML BOTTLE IV PRN (09:43)
[2019-08-06] MEDS: EZETIMIBE 10 MG TABLET PO SCH (21:42)
[2019-08-06] MEDS: SENNOSIDES/DOCUSATE SODIUM 1 TAB TABLET PO SCH (21:44)
[2019-08-06] MEDS: guaiFENesin/CODEINE 10 ML UDC PO PRN (21:45)
[2019-08-06] MEDS: INSULIN GLARGINE, HUMAN 1 UNIT/0.01 ML SQ SCH (21:56)
[2019-08-07] MEDS: 0.9 % SODIUM CHLORIDE 10 ML SYRINGE IV SCH ×3 (04:33→20:15)
[2019-08-07 06:40] LABS: Hematocrit 32.1 % (40.1-51.0); Hemoglobin 10.2 g/dL (13.7-17.5); Mean Cell Volume 90.7 fL (80.0-100.0); Mean Corpuscular HGB Conc 31.8 g/dL (31.0-36.0); Mean Platelet Volume 9.2 fL (7.4-10.4); Platelet Count 449 K/mcL (140-440); RBC 3.54 M/mcL (4.63-6.08); Red Cell Distribution Width 14.6 % (11.5-14.5); WBC 13.1 K/mcL (4.50-11.00)
[2019-08-07 06:59] LABS: ALT/SGPT 55 U/l (0-40); AST/SGOT 55 U/l (0-37); Albumin 1.7 gm/dL (3.2-5.2); Albumin/Globulin Ratio 0.4 (1.0-2.3); Alkaline Phosphatase 87 U/L (39-117); Bilirubin,Direct < 0.2 mg/dL (0.0-0.3); Bilirubin,Total 0.4 mg/dL (0.0-1.0); Blood Urea Nitrogen 34 mg/dl (8-23); Calcium 7.3 mg/dl (8.6-10.4); Carbon Dioxide 20 mmol/L (22-30); Chloride 106 mmol/L (96-108); Globulin 4.1 gm/dL (2.2-3.7); Glomerular Filtration Rate 44; Glucose 113 mg/dL (70-105); Lactate Dehydrogenase 265 U/L (94-250); Phosphorous 2.7 mg/dL (2.7-4.5); Triglycerides 144 mg/dl (<150)
--- NOTE | 2019-08-07 07:10 | XRay Report ---
CLINICAL INFORMATION:Pneumonia TECHNIQUE: AP portable semiupright chest x-ray COMPARISON: Previous chest x-rays dated 08/05/2019, 08/03/2019, 01/27/2018, 01/26/2018 FINDINGS: LUNGS: Negative left lung. Diffuse right lung infiltrates with dense right basilar consolidation. Findings are essentially unchanged since 08/05/2019 but worse since 08/03/2019. Radiographic appearance is nonspecific and consistent with pneumonia. HEART, VASCULARITY: No evidence for congestive heart failure MEDIASTINUM, LIZET: No significant mediastinal widening. No hilar mass PLEURA: Right pleural effusion is suspected MUSCULOSKELETAL: Previous median sternotomy. No acute rib fractures. 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 Degenerative disease in both shoulders with rotator cuff degeneration IMPRESSION: 1. Diffuse right lung infiltrates with right basilar consolidation. Findings are considered unchanged since 08/05/2019 but increased since 08/03/2019 2. Probable right pleural effusion Interpreted and Authenticated by: Tray Simpson 08/07/19
[2019-08-07 07:48] LABS: Anisocytosis FEW (NONE SEEN); Band Neutrophils % 13 % (0-10); Lymphocytes % 5 % (15-49); Monocytes % (Manual) 5 % (1-12); Platelet Estimate INCREASED (NORMAL); Polychromasia FEW (NONE SEEN); RBC Morphology ABNORM (NORMAL); Reactive Lymphocytes 2 % (0-2); Segmented Neutrophils % 75 % (38-78)
[2019-08-07] MEDS: HEPARIN 5,000 UNIT/ML VIAL SQ SCH ×2 (08:31→20:15)
[2019-08-07] MEDS: DOCUSATE SODIUM 100 MG CAPSULE PO SCH ×2 (08:31→20:13)
[2019-08-07] MEDS: INSULIN LISPRO 1 UNIT/0.01 ML UNIT SQ SCH ×4 (08:45→20:13)
[2019-08-07] MEDS: MUPIROCIN OINT 2% 22GM NARES SCH ×2 (09:10→20:13)
[2019-08-07] MEDS: CLOPIDOGREL 75 MG TABLET PO SCH (09:11)
[2019-08-07] MEDS: BICALUTAMIDE 50 MG TABLET PO SCH (09:11)
[2019-08-07] MEDS: metFORMIN 500 MG TABLET PO SCH ×2 (09:11→17:33)
[2019-08-07] MEDS: MULTIVIT,THER IRON,CA,FA & MIN 1 TABLET PO SCH (09:11)
[2019-08-07] MEDS: CALCIUM CARBONATE 500 MG TAB.CHEW PO SCH (09:11)
[2019-08-07] MEDS: DILTIAZEM 120 MG CAP.XL.24H PO SCH (09:11)
[2019-08-07] MEDS: cefTRIAXone 2 GM in DEXTROSE 5% IN WATER 50 ML IV SCH (09:11)
[2019-08-07] MEDS: LEVOFLOXACIN 750 MG/150 ML BAG IV SCH (09:50)
--- NOTE | 2019-08-07 10:41 | Internal Med Progress Note ---
Medical - PN: Subj Patient information: Note initiated : 08/07/19 at 10:38 am Service Date, if different from initiated Date: [] Patient: Jaiden Chavarria a 77 y/o M admitted on 08/03/19 for Cold Symptoms. Chief Complaint: [] Interval history: Mr. Chavarria is a 77 year old M with a history of type 2 diabetes/coronary di sease/atrial fibrillation/HTN and prostate cancer who presents to the ER with 1 month onset of progressive shortness of breath/cough or bloody sputum. Patient has had associated poor appetite/minimal weight loss but denies bloody stool. He denies recent sick contact. He is up-to-date on vaccines including flu and pneumonia. Patient denies associated fever, chills, headache, photophobia or myalgias but endorses to progressive weakness and decline in functionality. He lives alone and manages fairly independently. He has 5 daughters closest one lives in [facility]. He denies smoking/recent travel outside country/lower extremity edema/glandular swelling. He endorses to yellow-green productive sputum and recently has been blood-tinged. Initial work-up in the ER was consistent with right lower lobe pneumonia/white count 13.1, elevated lactic acid of 2.8, creatinine 1.8, elevated LFTs and sodium 132 Cultures obtained and patient was started on antibiotic coverage. Subsequently hospitalist service was consulted in light of above 08/03-patient clinically improving. Improved shortness of breath. On 3 L oxygen. White count down to 11.1. 12% bands. 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 T-max 100, tachypneic, no overnight events or concerns per staff 08/04-patient doing well. No overnight events. White count 12.6. Cough improved. Improved shortness of breath. Currently on room air. Lactic acid normalized. Sodium 138 with fluid restriction. LFTs uptrending. Creatinine 1.6. Interval chest imaging today. Continue antibiotic coverage 08/05-patient doing remarkably better. White count 12.4. Improved cough and shortness of breath. Sodium 138. Creatinine down to 1.5. Downtrending LFTs. Urine culture staph aureus/enterococci. DC Lo's catheter. Worsening right lung infiltrate on interval chest imaging. Continue antibiotic coverage. On 1 L oxygen. T-max 99.9. Transfer to medical floor 08/06-patient doing clinically better however worsening leukocytosis and bandemi a. Repeat chest imaging worsening infiltrate with right-sided pleural effusion. Will undergo thoracentesis to evaluate for empyema. Continue antibiotic coverage. Coronavirus RNA pending. On 1 L oxygen. T-max 100. White count 13.1, creatinine 1.5, urine culture MRSA/enterococci. DC Lo's catheter - Constitutional Vitals: Vital Signs Temp Pulse Resp BP Pulse Ox 98.9 F 71 19 131/62 90 08/07/19 08:00 08/07/19 08:00 08/07/19 08:00 08/07/19 08:00 08/07/19 08:00 Period Temp Pulse Resp BP Sys/Aguero Pulse Ox Last 24 Hr 98.1 F-100.0 F 63-78 17-31 128-144/60-76 87-96 Intake and Output 08/06/19 08/07/19 08/07/19 21:59 05:59 13:59 Intake Total 680 Output Total 100 950 Balance 580 -950 Weight 193 lb 4.8 oz Intake & Output: Intake & Output 08/06/19 08/07/19 08/07/19 21:59 05:59 13:59 Intake Total 680 Output Total 100 950 Balance 580 -950 Weight 193 lb 4.8 oz Intake: GI Tube Flush 680 Output: Urine Catheter Amount 100 950 Other: Urine Appearance Clear Urine Color Dark Yellow General appearance: no acute distress Exam: Alert oriented Nonlabored breathing No anxiety Nondistended abdomen Medical - PN: Obj Da - Labs CBC & Chem 7: 08/07/19 05:15 08/07/19 05:15 Labs: Abnormal Lab Results 08/07/19 08/07/19 08/06/19 05:15 05:15 04:44 WBC 13.1 H RBC 3.54 L Hgb 10.2 L Hct 32.1 L RDW 14.6 H Plt Count 449 H Band Neutrophils % 13 H Lymphocytes % 5 L Platelet Estimate Increased A RBC Morphology Abnorm A Polychromasia Few A Anisocytosis Few A Carbon Dioxide 20 L 21 L BUN 34 H 35 H Creatinine 1.5 H 1.5 H Glucose 113 H Calcium 7.3 L 7.2 L Phosphorus AST 55 H 52 H ALT 55 H 52 H Lactate Dehydrogenase 265 H Total Protein 5.8 L 5.6 L Albumin 1.7 L 1.8 L Globulin 4.1 H 3.8 H Albumin/Globulin Ratio 0.4 L 0.5 L 08/06/19 08/05/19 08/05/19 04:44 04:45 04:45 WBC 12.4 H 12.6 H RBC 3.43 L 3.40 L Hgb 10.2 L 10.1 L Hct 31.2 L 30.9 L RDW Plt Count Band Neutrophils % Lymphocytes % 9 L 10 L Platelet Estimate RBC Morphology Abnorm A Polychromasia Few A Anisocytosis Few A Carbon Dioxide 20 L BUN 38 H Creatinine 1.6 H Glucose 122 H Calcium 7.3 L Phosphorus 2.4 L AST 94 H ALT 79 H Lactate Dehydrogenase 277 H Total Protein 5.7 L Albumin 1.8 L Globulin 3.9 H Albumin/Globulin Ratio 0.5 L Meds: Medications Acetaminophen (Tylenol) 650 mg PO Q4-6HP PRN; Protocol PRN Reason: Per Pain Protocol/Fever > 101 Bicalutamide (Casodex) 50 mg PO QDAY [facility] Last Admin: 08/07/19 09:11 Dose: 50 mg Documented by: Bisacodyl (Dulcolax) 10 mg [place] Q2-3DAYS PRN PRN Reason: Constipation Calcium Carbonate/Glycine (Tums) 500 mg PO QDAY [facility] Last Admin: 08/07/19 09:11 Dose: 500 mg Documented by: Clopidogrel Bisulfate (Plavix) 75 mg PO QDAY [facility] Last Admin: 08/07/19 09:11 Dose: 75 mg Documented by: Dextrose (Dextrose 50%) 0 ml IV UD PRN PRN Reason: Hypoglycemia Diagnostic Test (Pha) (Accu-Chek) 1 each FS ACHS [facility] Last Admin: 08/07/19 07:43 Dose: 1 each Documented by: Diltiazem HCl (Cardizem Sr) 120 mg PO DAILY [facility] Last Admin: 08/07/19 09:11 Dose: 120 mg Documented by: Docusate Sodium (Colace) 100 mg PO BID [facility] Last Admin: 08/07/19 08:31 Dose: Not Given Documented by: Ezetimibe (Zetia) 10 mg PO HS [facility] Last Admin: 08/06/19 21:42 Dose: 10 mg Documented by: Glucose (Insta-Glucose) 15 gm PO PRN PRN PRN Reason: Hypoglycemia Guaifenesin/Codeine Phosphate (Robitussin Ac) 10 ml PO Q4HP PRN PRN Reason: Cough Last Admin: 08/06/19 21:45 Dose: 10 ml Documented by: Heparin Sodium (Porcine) (Heparin) 5,000 unit SQ Q12 [facility] Last Admin: 08/07/19 08:31 Dose: Not Given Documented by: Ceftriaxone Sodium 2 gm/ (Dextrose) 50 mls @ 100 mls/hr IV Q24H [facility]; Protocol Last Admin: 08/07/19 09:11 Dose: 100 mls/hr Documented by: Levofloxacin (Levaquin) 750 mg in 150 mls @ 100 mls/hr IV Q48H [facility]; Protocol Last Admin: 08/07/19 09:50 Dose: 100 mls/hr Documented by: Magnesium Sulfate (Magnesium Sulfate) 2 gm in 50 mls @ 50 mls/hr IV UD PRN PRN Reason: MG = or < 1.7 Norepinephrine Bitartrate 16 (mg/ Sodium Chloride) 250 mls @ 9.375 mls/hr IV Q24HP PRN; Protocol PRN Reason: MAP <65 Acetaminophen (Ofirmev) 650 mg in 65 mls @ 130 mls/hr IV Q6HP PRN; Protocol PRN Reason: Per Pain Protocol/Fever > 101 Insulin Glargine (Lantus) 35 unit SQ QHS [facility] Last Admin: 08/06/19 21:56 Dose: 22 units Documented by: Insulin Human Lispro (Humalog) 0 unit SQ ACHS [facility]; Protocol Last Admin: 08/07/19 08:45 Dose: Not Given Documented by: Iron Carb/Multivit/[place]/Folic Acid (Multivitamin W/Minerals) 1 tab PO DAILY [facility] Last Admin: 08/07/19 09:11 Dose: 1 tab Documented by: Melatonin (Melatonin 3mg Tablet) 3 mg PO HSP PRN PRN Reason: Insomnia Metformin HCl (Glucophage) 500 mg PO BIDCC [facility] Last Admin: 08/07/19 09:11 Dose: 500 mg Documented by: Mupirocin (Bactroban Oint 2%) 1 dose NARES BID [facility] Last Admin: 08/07/19 09:10 Dose: 1 dose Documented by: Ondansetron HCl (Zofran) 4 mg IV Q4-6HP PRN; Protocol PRN Reason: Nausea And Vomiting Polyethylene Glycol (Miralax) 17 gm PO DAILYP PRN PRN Reason: Constipation Potassium Chloride (Klor-Con) 40 meq PO DAILYP PRN PRN Reason: K+ < 3.5 Potassium/Phosphorus/Sodium (Neutra Phos) 2 packet PO BID PRN PRN Reason: Phosphorus less than 2.6 Senna/Docusate Sodium (Senna Plus Tablet) 1 tab PO HS [facility] Last Admin: 08/06/19 21:44 Dose: Not Given Documented by: Sodium Chloride (Saline Flush) 10 ml IV Q8 [facility] Last Admin: 08/07/19 04:33 Dose: 10 ml Documented by: Medical - PN: A/P - Time Spent With Patient Total time spent is greater than 50% in coordination of care (as documented) at patient's floor/unit and/or counseling patient: 25 - 35 minutes (1) Severe sepsis with acute organ dysfunction Status: Acute Assessment and plan: * Right lower lobe pneumonia-clinically improved but radiology deterioration with evidence of effusion. Continue antibiotic coverage * Right pleural effusion-thoracentesis for excluding empyema. Continue antibiotic coverage. * Severe sepsis with acute organ dysfunction-clinically improved however worsening leukocytosis * Acute kidney injury- resolved now at baseline * Elevated LFTs-ALT/AST ratio 2 is to 1. Underlying viral infection in differential. Await COVID 19 RNA * Hyponatremia-euvolemic SIADH. Resolved with free water restriction. * Low phosphorus resolved with replacement * History of CAD continue Plavix * DM type II continue basal prandial insulin * History of prostate cancer-patient frequently self catheterizes. DC Lo's catheter * History of hypertension-restart antihypertensives once systolics over 140 * History of atrial fibrillation-converted back to sinus. Continue rate control measures. * Prophylaxis on heparin * Full code Plan * Continue antibiotic coverage * Thoracentesis * PT OT/nutrition support * Pre-existing medical condition management on home medication * Hold discharge until thoracentesis Current Visit: Yes Medical - PN: Qual - VTE Deep Vein Thrombosis/Pulmonary Embolism Present on Admission: No
[2019-08-07] MEDS: guaiFENesin/CODEINE 10 ML UDC PO PRN (13:45)
[2019-08-07] MEDS: ACETAMINOPHEN 325 MG TABLET PO PRN (18:05)
[2019-08-07] MEDS: INSULIN GLARGINE, HUMAN 1 UNIT/0.01 ML SQ SCH (20:14)
[2019-08-07] MEDS: SENNOSIDES/DOCUSATE SODIUM 1 TAB TABLET PO SCH (20:14)
[2019-08-07] MEDS: EZETIMIBE 10 MG TABLET PO SCH (20:15)
[2019-08-08] MEDS: 0.9 % SODIUM CHLORIDE 10 ML SYRINGE IV SCH ×3 (04:19→21:00)
[2019-08-08 06:28] LABS: Hematocrit 30.9 % (40.1-51.0); Mean Cell Volume 90.9 fL (80.0-100.0); Mean Corpuscular HGB Conc 32.4 g/dL (31.0-36.0); Mean Platelet Volume 9.2 fL (7.4-10.4); Platelet Count 439 K/mcL (140-440); Red Cell Distribution Width 14.9 % (11.5-14.5); WBC 13.7 K/mcL (4.50-11.00)
[2019-08-08 06:37] LABS: ALT/SGPT 54 U/l (0-40); AST/SGOT 67 U/l (0-37); Albumin 1.7 gm/dL (3.2-5.2); Albumin/Globulin Ratio 0.4 (1.0-2.3); Alkaline Phosphatase 113 U/L (39-117); Bilirubin,Direct < 0.2 mg/dL (0.0-0.3); Bilirubin,Total 0.2 mg/dL (0.0-1.0); Blood Urea Nitrogen 35 mg/dl (8-23); Calcium 7.4 mg/dl (8.6-10.4); Carbon Dioxide 20 mmol/L (22-30); Chloride 102 mmol/L (96-108); Globulin 3.8 gm/dL (2.2-3.7); Glomerular Filtration Rate 44; Glucose 97 mg/dL (70-105); Lactate Dehydrogenase 273 U/L (94-250); Phosphorous 3.2 mg/dL (2.7-4.5); Triglycerides 123 mg/dl (<150); Uric Acid 5.5 mg/dL (2.5-8.0)
[2019-08-08] MEDS: INSULIN LISPRO 1 UNIT/0.01 ML UNIT SQ SCH ×4 (07:27→20:58)
[2019-08-08 07:40] LABS: Anisocytosis FEW (NONE SEEN); Band Neutrophils % 8 % (0-10); Eosinophils % (Manual) 2 % (0-7); Lymphocytes % 4 % (15-49); Monocytes % (Manual) 5 % (1-12); Platelet Estimate NORMAL (NORMAL); Polychromasia FEW (NONE SEEN); RBC Morphology ABNORM (NORMAL); Segmented Neutrophils % 81 % (38-78)
[2019-08-08] MEDS: BICALUTAMIDE 50 MG TABLET PO SCH (08:40)
[2019-08-08] MEDS: DILTIAZEM 120 MG CAP.XL.24H PO SCH (08:40)
[2019-08-08] MEDS: HEPARIN 5,000 UNIT/ML VIAL SQ SCH ×2 (08:40→20:59)
[2019-08-08] MEDS: CLOPIDOGREL 75 MG TABLET PO SCH (08:40)
[2019-08-08] MEDS: metFORMIN 500 MG TABLET PO SCH ×2 (08:40→17:15)
[2019-08-08] MEDS: MULTIVIT,THER IRON,CA,FA & MIN 1 TABLET PO SCH (08:40)
[2019-08-08] MEDS: DOCUSATE SODIUM 100 MG CAPSULE PO SCH ×2 (08:41→20:43)
[2019-08-08] MEDS: cefTRIAXone 2 GM in DEXTROSE 5% IN WATER 50 ML IV SCH (08:41)
[2019-08-08] MEDS: MUPIROCIN OINT 2% 22GM NARES SCH ×2 (08:41→20:59)
[2019-08-08] MEDS: CALCIUM CARBONATE 500 MG TAB.CHEW PO SCH (08:57)
--- NOTE | 2019-08-08 10:10 | Internal Med Progress Note ---
Medical - PN: Subj Patient information: Note initiated : 08/08/19 at 10:07 am Service Date, if different from initiated Date: [] Patient: Jaiden Chavarira a 77 y/o M admitted on 08/03/19 for Cold Symptoms. Chief Complaint: [] Interval history: Mr. Chavarria is a 77 year old M with a history of type 2 diabetes/coronary di sease/atrial fibrillation/HTN and prostate cancer who presents to the ER with 1 month onset of progressive shortness of breath/cough or bloody sputum. Patient has had associated poor appetite/minimal weight loss but denies bloody stool. He denies recent sick contact. He is up-to-date on vaccines including flu and pneumonia. Patient denies associated fever, chills, headache, photophobia or myalgias but endorses to progressive weakness and decline in functionality. He lives alone and manages fairly independently. He has 5 daughters closest one lives in [facility]. He denies smoking/recent travel outside country/lower extremity edema/glandular swelling. He endorses to yellow-green productive sputum and recently has been blood-tinged. Initial work-up in the ER was consistent with right lower lobe pneumonia/white count 13.1, elevated lactic acid of 2.8, creatinine 1.8, elevated LFTs and sodium 132 Cultures obtained and patient was started on antibiotic coverage. Subsequently hospitalist service was consulted in light of above 08/03-patient clinically improving. Improved shortness of breath. On 3 L oxygen. White count down to 11.1. 12% bands. 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 T-max 100, tachypneic, no overnight events or concerns per staff 08/04-patient doing well. No overnight events. White count 12.6. Cough improved. Improved shortness of breath. Currently on room air. Lactic acid normalized. Sodium 138 with fluid restriction. LFTs uptrending. Creatinine 1.6. Interval chest imaging today. Continue antibiotic coverage 08/05-patient doing remarkably better. White count 12.4. Improved cough and shortness of breath. Sodium 138. Creatinine down to 1.5. Downtrending LFTs. Urine culture staph aureus/enterococci. DC Lo's catheter. Worsening right lung infiltrate on interval chest imaging. Continue antibiotic coverage. On 1 L oxygen. T-max 99.9. Transfer to medical floor 08/06-patient doing clinically better however worsening leukocytosis and bandemi a. Repeat chest imaging worsening infiltrate with right-sided pleural effusion. Will undergo thoracentesis to evaluate for empyema. Continue antibiotic coverage. Coronavirus RNA pending. On 1 L oxygen. T-max 100. White count 13.1, creatinine 1.5, urine culture MRSA/enterococci. DC Lo's catheter 08/07-white count uptrending at 13.7. However clinically improved on room air. Await thoracentesis. Creatinine 1.5. LFTs uptrending. Await coronavirus test. No overnight fever chills. - Constitutional Vitals: Vital Signs Temp Pulse Resp BP Pulse Ox 99.5 F H 72 22 107/68 90 08/08/19 08:05 08/07/19 16:00 08/08/19 08:05 08/08/19 08:05 08/08/19 08:05 Period Temp Pulse Resp BP Sys/Aguero Pulse Ox Last 24 Hr 99.2 F-100.5 F 72 17-28 100-130/52-85 90-95 Intake and Output 08/07/19 08/08/19 08/08/19 21:59 05:59 13:59 Intake Total 1060 480 640 Output Total 450 450 Balance 610 30 640 Weight 191 lb 9.6 oz Intake & Output: Intake & Output 08/07/19 08/08/19 08/08/19 21:59 05:59 13:59 Intake Total 1060 480 640 Output Total 450 450 Balance 610 30 640 Weight 191 lb 9.6 oz Intake: IV 100 Rocephin 2 gm In Dextrose 5% in 100 Water 50 ml @ 100 mls/hr IV Q24H [facility] Rx#:[id number] Oral 960 340 GI Tube Flush 480 300 Output: Urine Catheter Amount 450 450 Other: Meal Dinner egg salad and crackers Breakfast Percent of Meal Consumed 100% 100% 100% Feeding Ability Independent Urine Appearance Sediment Uretheral (Lo) Clear Urine Color Bright Yellow Uretheral (Lo) Bright Yellow Stool Size Moderate Stool Color Brown Stool Consistency Soft Formed General appearance: no acute distress Exam: Alert oriented Nonlabored breathing No anxiety Nondistended abdomen Medical - PN: Obj Da - Labs CBC & Chem 7: 08/08/19 05:15 08/08/19 05:15 Labs: Abnormal Lab Results 08/08/19 08/08/19 08/07/19 05:15 05:15 05:15 WBC 13.7 H RBC 3.40 L Hgb 10.0 L Hct 30.9 L RDW 14.9 H Plt Count Seg Neutrophils % 81 H Band Neutrophils % Lymphocytes % 4 L Platelet Estimate RBC Morphology Abnorm A Polychromasia Few A Anisocytosis Few A Carbon Dioxide 20 L 20 L BUN 35 H 34 H Creatinine 1.5 H 1.5 H Glucose 113 H Calcium 7.4 L 7.3 L AST 67 H 55 H ALT 54 H 55 H Lactate Dehydrogenase 273 H 265 H Total Protein 5.5 L 5.8 L Albumin 1.7 L 1.7 L Globulin 3.8 H 4.1 H Albumin/Globulin Ratio 0.4 L 0.4 L 08/07/19 08/06/19 08/06/19 05:15 04:44 04:44 WBC 13.1 H 12.4 H RBC 3.54 L 3.43 L Hgb 10.2 L 10.2 L Hct 32.1 L 31.2 L RDW 14.6 H Plt Count 449 H Seg Neutrophils % Band Neutrophils % 13 H Lymphocytes % 5 L 9 L Platelet Estimate Increased A RBC Morphology Abnorm A Abnorm A Polychromasia Few A Few A Anisocytosis Few A Few A Carbon Dioxide 21 L BUN 35 H Creatinine 1.5 H Glucose Calcium 7.2 L AST 52 H ALT 52 H Lactate Dehydrogenase Total Protein 5.6 L Albumin 1.8 L Globulin 3.8 H Albumin/Globulin Ratio 0.5 L Meds: Medications Acetaminophen (Tylenol) 650 mg PO Q4-6HP PRN; Protocol PRN Reason: Per Pain Protocol/Fever > 101 Last Admin: 08/07/19 18:05 Dose: 650 mg Documented by: Bicalutamide (Casodex) 50 mg PO QDAY [facility] Last Admin: 08/08/19 08:40 Dose: 50 mg Documented by: Bisacodyl (Dulcolax) 10 mg [place] Q2-3DAYS PRN PRN Reason: Constipation Calcium Carbonate/Glycine (Tums) 500 mg PO QDAY [facility] Last Admin: 08/08/19 08:57 Dose: Not Given Documented by: Clopidogrel Bisulfate (Plavix) 75 mg PO QDAY [facility] Last Admin: 08/08/19 08:40 Dose: 75 mg Documented by: Dextrose (Dextrose 50%) 0 ml IV UD PRN PRN Reason: Hypoglycemia Diagnostic Test (Pha) (Accu-Chek) 1 each FS ACHS [facility] Last Admin: 08/08/19 07:26 Dose: 1 each Documented by: Diltiazem HCl (Cardizem Sr) 120 mg PO DAILY [facility] Last Admin: 08/08/19 08:40 Dose: 120 mg Documented by: Docusate Sodium (Colace) 100 mg PO BID [facility] Last Admin: 08/08/19 08:41 Dose: Not Given Documented by: Ezetimibe (Zetia) 10 mg PO HS [facility] Last Admin: 08/07/19 20:15 Dose: 10 mg Documented by: Glucose (Insta-Glucose) 15 gm PO PRN PRN PRN Reason: Hypoglycemia Guaifenesin/Codeine Phosphate (Robitussin Ac) 10 ml PO Q4HP PRN PRN Reason: Cough Last Admin: 08/07/19 13:45 Dose: 10 ml Documented by: Heparin Sodium (Porcine) (Heparin) 5,000 unit SQ Q12 [facility] Last Admin: 08/08/19 08:40 Dose: 5,000 unit Documented by: Ceftriaxone Sodium 2 gm/ (Dextrose) 50 mls @ 100 mls/hr IV Q24H [facility]; Protocol Last Admin: 08/08/19 08:41 Dose: 100 mls/hr Documented by: Levofloxacin (Levaquin) 750 mg in 150 mls @ 100 mls/hr IV Q48H [facility]; Protocol Last Infusion: 08/07/19 11:20 Dose: Infused Documented by: Magnesium Sulfate (Magnesium Sulfate) 2 gm in 50 mls @ 50 mls/hr IV UD PRN PRN Reason: MG = or < 1.7 Norepinephrine Bitartrate 16 (mg/ Sodium Chloride) 250 mls @ 9.375 mls/hr IV Q24HP PRN; Protocol PRN Reason: MAP <65 Acetaminophen (Ofirmev) 650 mg in 65 mls @ 130 mls/hr IV Q6HP PRN; Protocol PRN Reason: Per Pain Protocol/Fever > 101 Insulin Glargine (Lantus) 35 unit SQ QHS [facility] Last Admin: 08/07/19 20:14 Dose: 35 units Documented by: Insulin Human Lispro (Humalog) 0 unit SQ ACHS [facility]; Protocol Last Admin: 08/08/19 07:27 Dose: Not Given Documented by: Iron Carb/Multivit/[employer] Instructor/Folic Acid (Multivitamin W/Minerals) 1 tab PO DAILY [facility] Last Admin: 08/08/19 08:40 Dose: 1 tab Documented by: Melatonin (Melatonin 3mg Tablet) 3 mg PO HSP PRN PRN Reason: Insomnia Metformin HCl (Glucophage) 500 mg PO BIDCC [facility] Last Admin: 08/08/19 08:40 Dose: 500 mg Documented by: Mupirocin (Bactroban Oint 2%) 1 dose NARES BID [facility] Last Admin: 08/08/19 08:41 Dose: 1 dose Documented by: Ondansetron HCl (Zofran) 4 mg IV Q4-6HP PRN; Protocol PRN Reason: Nausea And Vomiting Polyethylene Glycol (Miralax) 17 gm PO DAILYP PRN PRN Reason: Constipation Potassium Chloride (Klor-Con) 40 meq PO DAILYP PRN PRN Reason: K+ < 3.5 Potassium/Phosphorus/Sodium (Neutra Phos) 2 packet PO BID PRN PRN Reason: Phosphorus less than 2.6 Senna/Docusate Sodium (Senna Plus Tablet) 1 tab PO HS [facility] Last Admin: 08/07/19 20:14 Dose: Not Given Documented by: Sodium Chloride (Saline Flush) 10 ml IV Q8 [facility] Last Admin: 08/08/19 04:19 Dose: 10 ml Documented by: Medical - PN: A/P - Time Spent With Patient Total time spent is greater than 50% in coordination of care (as documented) at patient's floor/unit and/or counseling patient: 15 - 24 minutes (1) Severe sepsis with acute organ dysfunction Status: Acute Assessment and plan: * Right lower lobe pneumonia-clinically improving. Continue antibiotic coverage * Right pleural effusion-await thoracentesis to exclude parapneumonic effusion/empyema. Continue antibiotic coverage. * Severe sepsis with acute organ dysfunction-stable hemodynamics. However worsening leukocytosis * Acute kidney injury- resolved now at baseline * Elevated LFTs-ALT/AST ratio 2 is to 1. Underlying viral infection in differential. Await COVID 19 RNA * Hyponatremia-euvolemic SIADH. Resolved with free water restriction. * Low phosphorus resolved with replacement * History of CAD continue Plavix * DM type II continue basal prandial insulin * History of prostate cancer-patient frequently self catheterizes. DC Lo's catheter * History of hypertension-restart antihypertensives once systolics over 140 * History of atrial fibrillation-converted back to sinus. Continue rate control measures. * Prophylaxis on heparin * Full code Plan * Continue antibiotic coverage * Await thoracentesis * PT OT/nutrition support * Pre-existing medical condition management on home medication Current Visit: Yes Medical - PN: Qual - VTE Deep Vein Thrombosis/Pulmonary Embolism Present on Admission: No
[2019-08-08] MEDS: ACETAMINOPHEN 325 MG TABLET PO PRN (14:39)
--- NOTE | 2019-08-08 15:09 | Ultrasound Report ---
CLINICAL INFORMATION: Right pleural effusion. Possible empyema TECHNIQUE: Informed consent was obtained. The discussed procedure as well as potential risks and complications including risk of right lung collapse and pneumothorax. Relatively small right pleural effusion was localized with ultrasound. Routine ChloraPrep skin cleansing. 1% lidocaine injected subcutaneously and deep. A 6 [place] safety centesis set was utilized. 500 mL yellow fluid removed and sent to the laboratory for analysis. No immediate complications. Postprocedure chest x-ray is pending IMPRESSION: 1. Ultrasound-guided right thoracentesis 2. 500 mL yellow fluid removed Interpreted and Authenticated by: Tray Simpson 08/08/19
--- NOTE | 2019-08-08 15:35 | XRay Report ---
CLINICAL INFORMATION:Post thoracentesis TECHNIQUE: AP portable semiupright chest x-ray COMPARISON: None FINDINGS: Lungs:Diffuse right lung infiltrates are unchanged. Left lung remains negative Heart, vascular:No significant cardiomegaly. Pulmonary vascularity is normal. No pulmonary edema or pulmonary congestion Mediastinum, balta:No mediastinal widening. No hilar mass Pleura:Status post right ultrasound-guided thoracentesis. There is no postthoracentesis pneumothorax. IMPRESSION: 1. Status post right thoracentesis. No pneumothorax 2. Diffuse right lung infiltrates, unchanged Interpreted and Authenticated by: Tray Simpson 08/08/19
[2019-08-08 18:32] LABS: pH,Body Fluid 7.57
[2019-08-08 18:38] LABS: Glucose,Pleural Fluid 94 mg/dL
[2019-08-08 18:44] LABS: Appearance,Pleural Fluid CLOUDY; Color,Pleural Fluid YELLOW; Lymphocytes,Pleural Fluid 4 %; Mesothelial,Pleural Fluid 2 %; Monocytes,Pleural Fluid 9 %; Neutrophils,Pleural Fluid 85 %; Nucleated Cells,Pleural Fld 2622 /cumm; RBC,Pleural Fluid < 50000 /cumm
[2019-08-08] MEDS: SENNOSIDES/DOCUSATE SODIUM 1 TAB TABLET PO SCH (20:43)
[2019-08-08] MEDS: EZETIMIBE 10 MG TABLET PO SCH (20:58)
[2019-08-08] MEDS: INSULIN GLARGINE, HUMAN 1 UNIT/0.01 ML SQ SCH (20:59)
[2019-08-09] MEDS: 0.9 % SODIUM CHLORIDE 10 ML SYRINGE IV SCH ×4 (05:46→10:00)
[2019-08-09 06:37] LABS: Basophils # (Auto) 0.05 K/mcL (0.00-0.30); Basophils % (Auto) 0.3 % (0.0-2.0); Eosinophils % (Auto) 1.2 % (0.0-7.0); Granulocytes % (Auto) 80.5 % (38.0-78.0); Lymphocytes # (Auto) 1.84 K/mcL (1.50-4.80); Lymphocytes % (Auto) 11.3 % (15.5-49.0); Mean Cell Volume 90.9 fL (80.0-100.0); Mean Corpuscular HGB Conc 32.3 g/dL (31.0-36.0); Mean Platelet Volume 8.9 fL (7.4-10.4); Monocytes # (Auto) 1.09 K/mcL (0.10-0.90); Monocytes % (Auto) 6.7 % (1.0-12.0); Platelet Count 473 K/mcL (140-440); RBC 3.41 M/mcL (4.63-6.08); Red Cell Distribution Width 14.9 % (11.5-14.5); WBC 16.3 K/mcL (4.50-11.00)
[2019-08-09 06:53] LABS: ALT/SGPT 47 U/l (0-40); AST/SGOT 60 U/l (0-37); Alkaline Phosphatase 75 U/L (39-117); Bilirubin,Direct < 0.2 mg/dL (0.0-0.3); Bilirubin,Total 0.3 mg/dL (0.0-1.0); Blood Urea Nitrogen 34 mg/dl (8-23); Calcium 7.8 mg/dl (8.6-10.4); Carbon Dioxide 19 mmol/L (22-30); Chloride 107 mmol/L (96-108); Glomerular Filtration Rate 44; Glucose 61 mg/dL (70-105); Lactate Dehydrogenase 229 U/L (94-250); Phosphorous 3.6 mg/dL (2.7-4.5); Triglycerides 110 mg/dl (<150); Uric Acid 5.6 mg/dL (2.5-8.0)
[2019-08-09 07:07] LABS: Albumin 1.8 gm/dL (3.2-5.2); Albumin/Globulin Ratio 0.5 (1.0-2.3); Globulin 3.8 gm/dL (2.2-3.7)
[2019-08-09] MEDS ORDERED: FUROSEMIDE 20 MG/2 ML VIAL IV ONE (07:26)
--- NOTE | 2019-08-09 08:02 | Discharge Summary ---
Medical - DS: Prov Patient information: Note initiated : 08/09/19 at 8:00 am Service Date, if different from initiated Date: [] Patient: Jaiden Chavarria 77 y/o M admitted on 08/03/19 for Cold Symptoms. Chief Complaint: [] Date of admission: 08/03/19 20:35 Discharge date: 08/09/19 Primary care physician: Tray Villavicencio Consults: 08/03/19 Consult to Physician [CONS] Stat Comment: Consulting Provider: Sal Thurston Reason For Exam: Physician to Consult Medical - DS: Meds - Discharge Medications Prescriptions: Amoxicillin/Potassium Clav [Augmentin] 875 mg PO Q12H #8 tab Transmission Status: Pending to [facility] Levofloxacin [Levaquin] 750 mg PO DAILY #4 tab Transmission Status: Pending to [facility] Active and Home Medications: Home Medications calcium carbonate 600 mg calcium (1,500 mg) tablet 600 mg PO QDAY tab 02/22/18 [History Confirmed 08/03/19 Last Taken Unknown] bicalutamide 50 mg tablet 50 mg PO QDAY 07/21/18 [History Confirmed 08/04/19 Last Taken Unknown] insulin aspart U-100 100 unit/mL (3 mL) subcutaneous pen 20 unit SUB-Q TID #45 ml 09/13/18 [Rx Confirmed 08/04/19 Last Taken Unknown] insulin detemir U-100 100 unit/mL (3 mL) subcutaneous pen 35 unit SUB-Q QHS #33 ml 12/28/18 [Rx Confirmed 08/04/19 Last Taken Unknown] clopidogrel 75 mg tablet 75 mg PO QDAY #90 tab 03/20/19 [Rx Confirmed 08/04/19 Last Taken Unknown] diltiazem HCl 120 mg capsule,extended release 24 hr 120 mg PO DAILY #90 cap 03/20/19 [Rx Confirmed 08/04/19 Last Taken Unknown] losartan 50 mg tablet 50 mg PO QDAY 04/24/19 [History Confirmed 08/04/19 Last Taken Unknown] metformin 500 mg tablet 500 mg PO BID #180 tab 06/07/19 [Rx Confirmed 08/04/19 Last Taken Unknown] ezetimibe 10 mg tablet 10 mg PO HS #90 tab 06/18/19 [Rx Confirmed 08/04/19 Last Taken Unknown] Ultra-Fine Manju Pen Needle 1 each SQ ACHS 04/11/20 [History Confirmed 08/06/19 Last Taken Unknown] Blood Sugar Diagnostic [Contour Test Strip] See Dose Instructions each .ROUTE .MEDSUPPLY 08/06/19 [History Confirmed 08/06/19 Last Taken Unknown] Amoxicillin/Potassium Clav [Augmentin] 875 mg PO Q12H #8 tab 08/09/19 [Rx Last Taken Unknown] Levofloxacin [Levaquin] 750 mg PO DAILY #4 tab 08/09/19 [Rx Last Taken Unknown] Medical - DS: Hosp Hospital Course: Discharge diagnosis * Right lower lobe pneumonia-clinically improving. Continue antibiotics additional 4 days * Right pleural effusion-status post thoracentesis. pH 7.57. No evidence of empyema * Severe sepsis with acute organ dysfunction- clinically resolved * Acute kidney injury- resolved now at baseline * Elevated LFTs-ALT/AST ratio 2 is to 1. Underlying viral infection in differential. Await COVID 19 RNA * Hyponatremia-euvolemic SIADH. Resolved with free water restriction. * Low phosphorus resolved with replacement * History of CAD continue Plavix * DM type II continue basal prandial insulin * History of prostate cancer-patient frequently self catheterizes. DC Lo's catheter * History of hypertension-continue antihypertensives * History of atrial fibrillation-converted back to sinus. Continue rate control measures. Brief hospital course Mr. Chavarria is a 77 year old M with a history of type 2 diabetes/coronary disease/atrial fibrillation/HTN and prostate cancer who presents to the ER with 1 month onset of progressive shortness of breath/cough or bloody sputum. Patient has had associated poor appetite/minimal weight loss but denies bloody stool. He denies recent sick contact. He is up-to-date on vaccines including flu and pneumonia. Patient denies associated fever, chills, headache, photophobia or myalgias but endorses to progressive weakness and decline in functionality. He lives alone and manages fairly independently. He has 5 daughters closest one lives in [place]. He denies smoking/recent travel outside country/lower extremity edema/glandular swelling. He endorses to yellow-green productive sputum and recently has been blood-tinged. Initial work-up in the ER was consistent with right lower lobe pneumonia/white count 13.1, elevated lactic acid of 2.8, creatinine 1.8, elevated LFTs and sodium 132 Cultures obtained and patient was started on antibiotic coverage. Subsequently hospitalist service was consulted in light of above 08/03-patient clinically improving. Improved shortness of breath. On 3 L oxygen. White count down to 11.1. 12% bands. 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 T-max 100, tachypneic, no overnight events or concerns per staff 08/04-patient doing well. No overnight events. White count 12.6. Cough improved. Improved shortness of breath. Currently on room air. Lactic acid normalized. Sodium 138 with fluid restriction. LFTs uptrending. Creatinine 1.6. Interval chest imaging today. Continue antibiotic coverage 08/05-patient doing remarkably better. White count 12.4. Improved cough and shortness of breath. Sodium 138. Creatinine down to 1.5. Downtrending LFTs. Urine culture staph aureus/enterococci. DC Lo's catheter. Worsening right lung infiltrate on interval chest imaging. Continue antibiotic coverage. On 1 L oxygen. T-max 99.9. Transfer to medical floor 08/06-patient doing clinically better however worsening leukocytosis and bandemia. Repeat chest imaging worsening infiltrate with right-sided pleural effusion. Will undergo thoracentesis to evaluate for empyema. Continue antibiotic coverage. Coronavirus RNA pending. On 1 L oxygen. T-max 100. White count 13.1, creatinine 1.5, urine culture MRSA/enterococci. DC Lo's catheter 08/07-white count uptrending at 13.7. However clinically improved on room air. Await thoracentesis. Creatinine 1.5. LFTs uptrending. Await coronavirus test. No overnight fever chills. 08/08-status post thoracentesis. White count 16,000. Clinically much improved. Now on room air. No evidence of empyema. Continue antibiotic coverage for additional 4 days. Patient clinically feels a lot better. Discharge diagnosis: . - Time Spent with Patient Total time spent providing and/or coordinating discharge services: Greater than 30 minutes Medical - DS: Exam - Constitutional Vitals: Vital Signs Temp Pulse Resp BP BP BP Pulse Ox 08/09/19 07:27 98.8 F 20 100/66 94 08/09/19 06:40 98.8 F 20 100/66 94 08/09/19 04:00 97.4 F 60 20 122/50 93 08/08/19 23:52 97.1 F 18 136/61 92 08/08/19 19:12 98.0 F 22 121/62 91 08/08/19 17:00 98.8 F 75 18 103/62 92 08/08/19 15:24 100.9 F H 08/08/19 14:39 101.0 F H 26 H 08/08/19 13:53 100.7 F H 25 H 114/61 08/08/19 10:57 100.5 F H 08/08/19 08:05 99.5 F H 22 107/68 90 08/08/19 08:04 99.5 F H 25 H Intake and Output 08/08/19 08/09/19 08/09/19 21:59 05:59 13:59 Intake Total 320 340 Output Total 850 Balance 320 -510 Intake: GI Tube Flush 320 340 Output: Urine Catheter Amount 850 Other: Urine Appearance Sediment Uretheral (Lo) Sediment Sediment Urine Color Dark Yellow Uretheral (Lo) Dark Yellow Dark Yellow Blood Tinged Stool Size Copious Stool Color Brown Stool Consistency Loose # Bowel Movements 1 Weight 200 lb 4.8 oz Medical - DS: Data Labs on day of discharge: Labs from last 24 hours 08/09/19 08/09/19 08/08/19 05:10 05:10 08:11 WBC 16.3 H RBC 3.41 L Hgb 10.0 L Hct 31.0 L MCV 90.9 MCH 29.3 MCHC 32.3 RDW 14.9 H Plt Count 473 H MPV 8.9 Gran % 80.5 H Lymph % (Auto) 11.3 L Smith % (Auto) 6.7 Eos % (Auto) 1.2 Baso % (Auto) 0.3 Gran # 13.13 H Lymph # (Auto) 1.84 Smith # (Auto) 1.09 H Eos # (Auto) 0.20 Baso # (Auto) 0.05 Sodium 136 Potassium 4.3 Chloride 107 Carbon Dioxide 19 L Anion Gap 10.0 BUN 34 H Creatinine 1.5 H GFR Calculation 44 Glucose 61 L Uric Acid 5.6 Calcium 7.8 L Phosphorus 3.6 Magnesium 2.1 Total Bilirubin 0.3 Direct Bilirubin < 0.2 GGT 20 AST 60 H ALT 47 H Alkaline Phosphatase 75 Lactate Dehydrogenase 229 Total Protein 5.6 L Albumin 1.8 L Globulin 3.8 H Albumin/Globulin Ratio 0.5 L Triglycerides 110 Fluid pH Fluid Total Protein Fluid LDH Pleural Fluid Source Pleural Color Pleural Appearance Pleural RBC Pleural Tot Cell Ct Pleural Nuc Cells Pleural Neutrophils Pleural Lymphocytes Pleural Monocytes Pleural Plasma Cells Pleural Macrophages Pleural Mesothelial Pleural Diff Comment Pleural Total Protein 2.8 Pleural LDH Pleural Glucose Nasal/Oral COVID-19 PCR COVID-19 PCR Interp 08/08/19 08/07/19 08/07/19 08:11 08:11 08:10 WBC RBC Hgb Hct MCV MCH MCHC RDW Plt Count MPV Gran % Lymph % (Auto) Smith % (Auto) Eos % (Auto) Baso % (Auto) Gran # Lymph # (Auto) Smith # (Auto) Eos # (Auto) Baso # (Auto) Sodium Potassium Chloride Carbon Dioxide Anion Gap BUN Creatinine GFR Calculation Glucose Uric Acid Calcium Phosphorus Magnesium Total Bilirubin Direct Bilirubin GGT AST ALT Alkaline Phosphatase Lactate Dehydrogenase Total Protein Albumin Globulin Albumin/Globulin Ratio Triglycerides Fluid pH 7.57 Fluid Total Protein TNP Fluid LDH TNP Pleural Fluid Source Pleural Pleural Color Yellow Pleural Appearance Cloudy Pleural RBC < [address] 100 Pleural Nuc Cells 2622 Pleural Neutrophils 85 Pleural Lymphocytes 4 Pleural Monocytes 9 Pleural Plasma Cells Not Reportable Pleural Macrophages Not Reportable Pleural Mesothelial 2 Pleural Diff Comment Not Reportable Pleural Total Protein Pleural LDH 414 Pleural Glucose 94 Nasal/Oral COVID-19 PCR COVID-19 PCR Interp 08/03/19 19:37 WBC RBC Hgb Hct MCV MCH MCHC RDW Plt Count MPV Gran % Lymph % (Auto) Smith % (Auto) Eos % (Auto) Baso % (Auto) Gran # Lymph # (Auto) Smith # (Auto) Eos # (Auto) Baso # (Auto) Sodium Potassium Chloride Carbon Dioxide Anion Gap BUN Creatinine GFR Calculation Glucose Uric Acid Calcium Phosphorus Magnesium Total Bilirubin Direct Bilirubin GGT AST ALT Alkaline Phosphatase Lactate Dehydrogenase Total Protein Albumin Globulin Albumin/Globulin Ratio Triglycerides Fluid pH Fluid Total Protein Fluid LDH Pleural Fluid Source Pleural Color Pleural Appearance Pleural RBC Pleural Tot Cell Ct Pleural Nuc Cells Pleural Neutrophils Pleural Lymphocytes Pleural Monocytes Pleural Plasma Cells Pleural Macrophages Pleural Mesothelial Pleural Diff Comment Pleural Total Protein Pleural LDH Pleural Glucose Nasal/Oral COVID-19 PCR No ncov rna detected COVID-19 PCR Interp Cov rna not detected Preliminary micro results at discharge 08/08/19 16:53 Gram Stain - Preliminary Pleural Fluid Medical - DS: A/P - Patient/Caregiver Discharge Instructions Activity: increase activity as tolerated Diet: Regular Diet Additional Instructions: Follow-up PCP in 5 days I recommend primary care physician to check CBC BMP UA as a posthospital follow- up in 1 week. Antibiotics for additional 4 days levofloxacin/Augmentin Continue aggressive bowel regimen to prevent constipation Continue fall precautions High protein calorie supplements All meals on chair sitting upright at 90 degrees to prevent aspiration Return to ER if worsening fever chills shortness of breath, diarrhea, bleeding Review risk and side effect profile of medications including antibiotics. Side effect may include mild to severe reaction including rash, diarrhea, cdiff and even which can be prevented by close follow-up with PCP and monitoring for side effects Continue diet and activity as advised Discussed importance of medication adherence Please review medication list with patient prior to discharge Please schedule follow-up with PCP/Providers prior to discharge and provide printouts Prescriptions: Amoxicillin/Potassium Clav [Augmentin] 875 mg PO Q12H #8 tab Transmission Status: Pending to [facility] Levofloxacin [Levaquin] 750 mg PO DAILY #4 tab Transmission Status: Pending to [facility] - Problem Maintenance (1) Severe sepsis with acute organ dysfunction Status: Acute - Follow up Plan Follow up with: Tray Villavicencio DO [Primary Care Provider] - 08/20/19 11:15 am Disposition: Home, Self-Care Care Plan Goals: This discharge packet is provided to you to help keep you informed about your care. We want to ensure you get everything you need when you go home. You will also be receiving a call from us in a few days to follow up with you and see how you are doing since your discharge. This gives us a chance to listen to any concerns you maybe experiencing since you were discharged or any additional needs you may have, as well as providing us feedback on your care experience. We strive to always provide excellent care and thank you for your feedback and for choosing [facility]. Prognosis: Fair Rehab Potential: Fair I certify that the patient requires SNF services: No Overall status at discharge: patient is progressing back to baseline Medical - DS: Qual - VTE Deep Vein Thrombosis/Pulmonary Embolism Present on Admission: No
[2019-08-09] MEDS: INSULIN LISPRO 1 UNIT/0.01 ML UNIT SQ SCH ×2 (08:13→11:11)
[2019-08-09] MEDS: metFORMIN 500 MG TABLET PO SCH (08:17)
[2019-08-09] MEDS: HEPARIN 5,000 UNIT/ML VIAL SQ SCH (09:15)
[2019-08-09] MEDS: DILTIAZEM 120 MG CAP.XL.24H PO SCH (09:15)
[2019-08-09] MEDS: MULTIVIT,THER IRON,CA,FA & MIN 1 TABLET PO SCH (09:15)
[2019-08-09] MEDS: DOCUSATE SODIUM 100 MG CAPSULE PO SCH (09:16)
[2019-08-09] MEDS: CLOPIDOGREL 75 MG TABLET PO SCH (09:16)
[2019-08-09] MEDS: MUPIROCIN OINT 2% 22GM NARES SCH (09:16)
[2019-08-09] MEDS: BICALUTAMIDE 50 MG TABLET PO SCH (09:19)
[2019-08-09] MEDS: cefTRIAXone 2 GM in DEXTROSE 5% IN WATER 50 ML IV SCH (09:19)
[2019-08-09] MEDS: CALCIUM CARBONATE 500 MG TAB.CHEW PO SCH (09:27)
[2019-08-09] MEDS: LEVOFLOXACIN 750 MG/150 ML BAG IV SCH (09:59)
--- NOTE | 2019-08-13 10:34 | Non-GYN Cytology Report ---
NON SUPERVISOR TESTING SPECIMEN NG DX CATEGORY Negative MICROSCOPIC DIAGNOSIS PLEURAL FLUID, RIGHT, THORACENTESIS: -- NO ATYPICAL OR MALIGNANT CELLS IDENTIFIED, SEE COMMENT. -- ABUNDANT ACUTE INFLAMMATION WITH REACTIVE MESOTHELIAL CELLS. (EBD:sln) COMMENT: The patient's history of metastatic prostatic adenocarcinoma is noted. No atypical or malignant cells are identified in the thoracentesis specimen confirmed by immunohistochemistry. MICROSCOPIC DESCRIPTION Cytologic preparations of the pleural fluid show abundant acute (neutrophilic) inflammation with scattered reactive mesothelial cells and histiocytes. WT1 and calretinin immunohistochemical stains highlight mesothelial cells while CD68 highlights histiocytes. No atypical glandular epithelial cells are identified by [id number] or [id number] immunohistochemical stains. All stains show adequate technical controls. (EBD:sln) Some of the tests reported here may not have been cleared or approved by the [place]. Food and Drug Administration (FDA). However, the FDA has determined that such clearance or approval is not necessary. Pursuant to the requirements of CLIA, this laboratory has established and verified the accuracy and precision of all tests, and additional information about these tests is available upon request. All technical controls are adequate. CLINICAL HISTORY Right pleural effusion. EXTERNAL COMMENT ~450 mL fresh cloudy yellow fluid: 1 thinprep, 1 Augustine Giemsa, 1 Diff Quik, 1 pap 1 cell block Electronically Signed by: Aleisha Vaughan M.D.
== END 2019-08-09 13:05 | disposition home or self-care (01) | DRG 871 ==
LOC: ED 15:09 → ICU 20:35
PROVIDERS: ADMIT Internal Medicine; ATTEND Internal Medicine